=== PATIENT | male | born 1980 | race African-American/Black ===

== ENCOUNTER 2021-03-30 16:08 | Inpatient (IN) ==
[2021-03-30] MEDS ORDERED: CEFEPIME 2,000 MG/20 ML VIAL IV STA (16:18)
[2021-03-30] MEDS ORDERED: SODIUM CHLORIDE 0.9% 1000ML 1,000 ML IV ONE (16:18)
--- NOTE | 2021-03-30 16:43 | Emergency Department Note ---
Impression & Plan Sepsis, Renal transplant recipient, Left hemiplegia, Subarachnoid hemorrhage, ABEBA (acute kidney injury) ED Provider Note NAME: KARINA [id number] OSCAR AGE: 41 SEX: M : 1980 ARRIVES VIA: Ambulance INFORMANT: Patient ED PROVIDER(S): Davi Bruce DO CHIEF COMPLAINT:Sepsis HPI: Patient is a 41-year-old male who presents the ER for fever, hypotension and a UTI with a white count of 17,000. [facility] to embolectomy performed on the at [facility] for stroke. He was started on Keppra for possible seizures. He was having fevers and initially started on Augmentin and today following a syncopal episode they checked blood work and he had a white count of 17,000. He was found to be febrile and has a UTI. He was placed on Rocephin and transferred over to the ER. He does have a kidney transplant which was performed in 2018. He admits to a mild headache but no change in vision. No chest pain or shortness of breath. He had some belly pain prior to having bowel movement which is now resolved. He has no tenderness over the kidney. Denies any cough or runny nose. No loss of taste or smell. No other exacerbating or remitting factors. He denies any new numbness or weakness in the arms or legs but admits to improving strength in the left lower extremity. When he passed out the guard was with him and he did not hit his head. ROS: See above HPI for pertinent positives & negatives. A total of 10 systems reviewed and were otherwise negative. PAST MEDICAL HISTORY:See Below PAST SURGICAL HISTORY:See Below FAMILY HISTORY:See Below SOCIAL HISTORY:See Below HOME MEDICATIONS:See Below ALLERGIES:See Below VITALS:See Below PHYSICAL EXAMINATION: GENERAL: Sitting up in bed, alert, well appearing, well nourished, no distress, non-toxic EYE EXAM: normal conjunctiva. OROPHARYNX: no exudate, no erythema, lips, buccal mucosa, and tongue normal and mucous membranes are moist NECK: supple, no nuchal rigidity, no adenopathy, non-tender LUNGS: Clear to auscultation. Normal chest wall mechanics HEART: no murmurs, S1 normal and S2 normal ABDOMEN: abdomen soft, non-tender, normo-active bowel sounds, no masses, no rebound or guarding. Incision over abdomen without tenderness over the kidney. UPPER EXTREMITIES: upper extremities are grossly normal. LOWER EXTREMITIES: No pitting edema. NEURO EXAM: Normal sensorium, cranial nerves II-XII grossly intact, normal speech, little to no movement of the left upper extremity which is old. He is able to flex at the knee and move his toes on the left lower which is significantly improved per patient. No weakness of the right upper or right lower extremity. MEDICAL DECISION MAKING: Patient is a 41-year-old male with a recent stroke and neuro intervention at [facility] within the week who presents the ER for sepsis as he was found at [facility] to be hypotensive, tachycardic, febrile with a UTI and white count of 17,000. He had a syncopal event while having a bowel movement on the toilet and did not fall. There is no trauma. This was witnessed by the guard who was present at bedside. IV was established blood work was obtained here. Labs show leukocytosis of 13,000. No significant anemia. INR at 1.2. BMP with mild hyponatremia at 1.3. Creatinine at 3.1 up from a baseline of 2.4 with his known renal transplant performed in 2018. Lactate was normal. LFTs bilirubin was unremarkable. Troponin was negative. Pro-Gabe elevated at 3.8. UA does have leuks and whites and has already been treated with IV antibiotics. Covid was negative. CT showed a small subarachnoid bleed. This is discussed with interventional neurosurgical team at [facility] Dr. Vasquez as well as Dr. Garcia. I sent the images to Dr. Villagran who reviewed them. He notes these nearly never need neurosurgical intervention. Both physicians recommended holding the Plavix and repeating a CT in 24 hours. If he deteriorates at any point or anything changes to repeat the CT emergently and send him to [place]. They currently have no beds at this time. To the 48-hour wait. They believe this can be managed here. Also discussed with our neurologist Dr. Abreu. He recommended stopping the mycophenolate. He recommended continuing the tacrolimus. Recommended a level in the morning prior to the dose. If on steroids to continue. He does not appear to take steroids per the report from [facility]. Was given IV cefepime here. He remained stable. He was updated bedside and admitted for further work-up to Dr. Shaheed Doran. Triage Nursing notes reviewed. Limited review of prior medical records performed Vital Signs: reviewed and remarkable for no significant abnormalities Differential diagnosis: Differential diagnosis includes etiologies such as sepsis, UTI, pneumonia, metabolic, electrolyte abnormalities, cardiac sources, intracerebral event, toxicologic, neurological, as well as others were entertained. ER treatment provided: See below Diagnostics interpreted by me: ECG: Sinus rhythm rate of 79 Normal axis T wave version in lead III QTC 438 Cardiac Monitoring: An order was placed for continuous cardiac monitoring. The monitor shows a rate of 80 with sinus rhythm. Laboratory studies: As stated above and show below. Imaging studies: CT of the head shows a small subarachnoid bleed Consultation(s): [facility] discussing with [facility]surgery and nephrology prior to admission. Discussed with Dr. Vasquez from interventional neurology and Dr. Garcia from neurology. Procedures: none Critical Care: I have personally spent 32 minutes of critical care time in the direct management of this patient. This includes bedside care, interpretation of diagnostic studies, and testing, discussion with consultants, patient, and family members, and other required patient management activities. This 32 minutes is in excess of all separately billable procedures. Past Med/Surg History Social History Smoking Status: Never smoker Feels Safe at Home: Yes Home Meds Home Medications Medication Instructions Recorded Confirmed acetaminophen 325 mg tablet 650 mg PO Q4H PRN 03/30/21 03/30/21 (Tylenol) aspirin 81 mg tablet,delayed 81 mg PO DAILY 03/30/21 03/30/21 release clopidogrel 75 mg tablet 75 mg PO DAILY 03/30/21 03/30/21 docusate sodium 100 mg capsule 100 mg PO BID 03/30/21 03/30/21 fenofibrate nanocrystallized 48 mg 48 mg PO DAILY 03/30/21 03/30/21 tablet folic acid 1 mg tablet 2 mg PO DAILY 03/30/21 03/30/21 heparin (porcine) 5,000 unit/mL 5,000 unit SUBCUT Q12H 03/30/21 03/30/21 injection solution levetiracetam 250 mg tablet 250 mg PO Q12H 03/30/21 03/30/21 (Keppra) magnesium hydroxide 400 mg/5 mL 30 ml PO DAILY PRN 03/30/21 03/30/21 oral suspension (Milk of Magnesia) mycophenolate sodium 180 mg 720 mg PO BID 03/30/21 03/30/21 tablet,delayed release polyethylene glycol 3350 17 17 g PO .DAILY @ LUNCH PRN 03/30/21 03/30/21 gram/dose oral powder (Miralax) rosuvastatin 10 mg tablet 20 mg PO HS 03/30/21 03/30/21 sennosides 8.6 mg tablet (senna) 8.6 mg PO DAILY 03/30/21 03/30/21 tacrolimus 1 mg capsule, 2 mg PO Q12H 03/30/21 03/30/21 immediate-release Results & Data (ED) Vital Signs Vital Signs - 24 hr 03/30/21 16:44 03/30/21 17:00 Temperature 37.8 C H Temperature Source Oral Pulse Rate 101 H Pulse Rate [Right Finger] 108 H Pulse Rhythm Regular Pulse Rhythm [Right Finger] Regular Pulse Strength Normal Pulse Strength [Right Finger] Normal Respiratory Rate 22 18 Respiratory Effort / Characteristics Non-Labored Non-Labored Respiratory Depth Normal Normal Respiratory Pattern Regular Regular Blood Pressure 115/79 Blood Pressure [Right Arm] 104/72 Blood Pressure Mean 91 Blood Pressure Mean [Right Arm] 82 Blood Pressure Position Lying Blood Pressure Position [Right Arm] Lying Pulse Oximetry 96 97 Oxygen Delivery Method Room Air Room Air Sepsis Recent Fever Within 48 Hours Yes Sepsis New/Unexplained Change in Mental Status No Sepsis Action Taken by Nursing MD Previously Notified Laboratory Data Result diagrams: 03/30/21 17:30 03/30/21 17:30 Lab Results 03/30/21 03/30/21 03/30/21 Range/Units 16:55 16:55 17:30 WBC 13.44 H (4.8-10.8) K/uL RBC 4.64 L (4.7-6.1) M/uL Hgb 14.5 (14.0-18.0) g/dL Hct 41.7 L (42-52) % MCV 89.9 (80-100) fL MCH 31.3 (25-34) pg MCHC 34.8 (32-36) g/dL RDW Std Deviation 41.0 (36.4-46.3) fL RDW Coeff of Robert 12.4 (11.5-14.5) % Plt Count 255 (130-400) K/uL MPV 8.6 (7.4-10.4) fL Immature Gran % (Auto) 0.6 % Neut % (Auto) 88.1 % Lymph % (Auto) 6.9 % [place] % (Auto) 4.2 % Eos % (Auto) 0.1 % Baso % (Auto) 0.1 % Neut # (Auto) 11.84 H (1.4-6.5) K/uL Lymph # (Auto) 0.93 L (1.2-3.4) K/uL [place] # (Auto) 0.56 (0.11-0.59) K/uL Eos # (Auto) 0.01 (0-0.5) K/uL Baso # (Auto) 0.02 (0-0.2) K/uL Immature Gran # (Auto) 0.08 H (0.00-0.02) K/uL PT (9.0-12.0) Seconds INR (0.9-1.1) APTT (21.0-31.0) Seconds PTT Ratio Sodium (136-145) mmol/L Potassium (3.5-5.1) mmol/L Chloride (98-107) mmol/L Carbon Dioxide (21-32) mmol/L Anion Gap (3-11) BUN (7-18) mg/dl Creatinine (0.6-1.4) mg/dl Est Cr Clr Drug Dosing ml/min Est GFR ( Amer) ml/min Est GFR (Non-Af Amer) ml/min BUN/Creatinine Ratio (10-20) Glucose (70-99) mg/dl Lactate (0.4-2.0) mmol/L Calcium (8.5-10.1) mg/dl Magnesium (1.8-2.4) mg/dl Total Bilirubin (0.2-1) mg/dl AST (15-37) U/L ALT (12-78) U/L Alkaline Phosphatase (45-117) U/L Troponin I (0-0.045) ng/ml Total Protein (6.4-8.2) gm/dl Albumin (3.4-5.0) gm/dl Globulin (2.5-4.0) gm/dl Albumin/Globulin Ratio (0.9-2) Procalcitonin (0-0.5) ng/ml Urine Color Urine Appearance (Clear) Urine pH (4.5-7.5) Ur Specific [place] (1.000-1.030) Urine Protein (Negative) Urine Glucose (UA) (Negative) Urine Ketones (Negative) Urine Blood (Negative) Urine Nitrite (Negative) Urine Bilirubin (Negative) Urine Urobilinogen (Negative) Ur Leukocyte Esterase (Negative) Urine WBC (Auto) (0-5) /hpf Urine RBC (Auto) (0-4) /hpf U Hyaline Cast (Auto) (0-5) /lpf U Epithel Cells (Auto) (0-5) /lpf Urine Bacteria (Auto) (Negative) Granular Casts (0) /lpf Urine Yeast COVID-19 Eval Order Covid19 at [facility] SARS-CoV-2 (PCR) NEGATIVE (Negative) 03/30/21 03/30/21 03/30/21 Range/Units 17:30 17:30 17:30 WBC (4.8-10.8) K/uL RBC (4.7-6.1) M/uL Hgb (14.0-18.0) g/dL Hct (42-52) % MCV (80-100) fL MCH (25-34) pg MCHC (32-36) g/dL RDW Std Deviation (36.4-46.3) fL RDW Coeff of Robert (11.5-14.5) % Plt Count (130-400) K/uL MPV (7.4-10.4) fL Immature Gran % (Auto) % Neut % (Auto) % Lymph % (Auto) % [place] % (Auto) % Eos % (Auto) % Baso % (Auto) % Neut # (Auto) (1.4-6.5) K/uL Lymph # (Auto) (1.2-3.4) K/uL [place] # (Auto) (0.11-0.59) K/uL Eos # (Auto) (0-0.5) K/uL Baso # (Auto) (0-0.2) K/uL Immature Gran # (Auto) (0.00-0.02) K/uL PT 12.3 H (9.0-12.0) Seconds INR 1.2 H (0.9-1.1) APTT 32.3 H (21.0-31.0) Seconds PTT Ratio 1.2 Sodium 131 L (136-145) mmol/L Potassium 3.8 (3.5-5.1) mmol/L Chloride 99 (98-107) mmol/L Carbon Dioxide 24 (21-32) mmol/L Anion Gap 8.0 (3-11) BUN 42 H (7-18) mg/dl Creatinine 3.12 H (0.6-1.4) mg/dl Est Cr Clr Drug Dosing 35.3 ml/min Est GFR ( Amer) 27.1 ml/min Est GFR (Non-Af Amer) 23.4 ml/min BUN/Creatinine Ratio 13.5 (10-20) Glucose 129 H (70-99) mg/dl Lactate 1.0 (0.4-2.0) mmol/L Calcium 9.2 (8.5-10.1) mg/dl Magnesium 2.0 (1.8-2.4) mg/dl Total Bilirubin 0.7 (0.2-1) mg/dl AST 35 (15-37) U/L ALT 61 (12-78) U/L Alkaline Phosphatase 77 (45-117) U/L Troponin I < 0.015 (0-0.045) ng/ml Total Protein 7.7 (6.4-8.2) gm/dl Albumin 2.9 L (3.4-5.0) gm/dl Globulin 4.8 H (2.5-4.0) gm/dl Albumin/Globulin Ratio 0.6 L (0.9-2) Procalcitonin (0-0.5) ng/ml Urine Color Urine Appearance (Clear) Urine pH (4.5-7.5) Ur Specific [place] (1.000-1.030) Urine Protein (Negative) Urine Glucose (UA) (Negative) Urine Ketones (Negative) Urine Blood (Negative) Urine Nitrite (Negative) Urine Bilirubin (Negative) Urine Urobilinogen (Negative) Ur Leukocyte Esterase (Negative) Urine WBC (Auto) (0-5) /hpf Urine RBC (Auto) (0-4) /hpf U Hyaline Cast (Auto) (0-5) /lpf U Epithel Cells (Auto) (0-5) /lpf Urine Bacteria (Auto) (Negative) Granular Casts (0) /lpf Urine Yeast COVID-19 Eval Order SARS-CoV-2 (PCR) (Negative) 03/30/21 03/30/21 Range/Units 17:30 17:30 WBC (4.8-10.8) K/uL RBC (4.7-6.1) M/uL Hgb (14.0-18.0) g/dL Hct (42-52) % MCV (80-100) fL MCH (25-34) pg MCHC (32-36) g/dL RDW Std Deviation (36.4-46.3) fL RDW Coeff of Robert (11.5-14.5) % Plt Count (130-400) K/uL MPV (7.4-10.4) fL Immature Gran % (Auto) % Neut % (Auto) % Lymph % (Auto) % [place] % (Auto) % Eos % (Auto) % Baso % (Auto) % Neut # (Auto) (1.4-6.5) K/uL Lymph # (Auto) (1.2-3.4) K/uL [place] # (Auto) (0.11-0.59) K/uL Eos # (Auto) (0-0.5) K/uL Baso # (Auto) (0-0.2) K/uL Immature Gran # (Auto) (0.00-0.02) K/uL PT (9.0-12.0) Seconds INR (0.9-1.1) APTT (21.0-31.0) Seconds PTT Ratio Sodium (136-145) mmol/L Potassium (3.5-5.1) mmol/L Chloride (98-107) mmol/L Carbon Dioxide (21-32) mmol/L Anion Gap (3-11) BUN (7-18) mg/dl Creatinine (0.6-1.4) mg/dl Est Cr Clr Drug Dosing ml/min Est GFR ( Amer) ml/min Est GFR (Non-Af Amer) ml/min BUN/Creatinine Ratio (10-20) Glucose (70-99) mg/dl Lactate (0.4-2.0) mmol/L Calcium (8.5-10.1) mg/dl Magnesium (1.8-2.4) mg/dl Total Bilirubin (0.2-1) mg/dl AST (15-37) U/L ALT (12-78) U/L Alkaline Phosphatase (45-117) U/L Troponin I (0-0.045) ng/ml Total Protein (6.4-8.2) gm/dl Albumin (3.4-5.0) gm/dl Globulin (2.5-4.0) gm/dl Albumin/Globulin Ratio (0.9-2) Procalcitonin 3.80 H (0-0.5) ng/ml Urine Color Yellow Urine Appearance Clear (Clear) Urine pH 5.0 (4.5-7.5) Ur Specific [place] 1.013 (1.000-1.030) Urine Protein 1+ H (Negative) Urine Glucose (UA) Negative (Negative) Urine Ketones Negative (Negative) Urine Blood Trace H (Negative) Urine Nitrite Negative (Negative) Urine Bilirubin Negative (Negative) Urine Urobilinogen Negative (Negative) Ur Leukocyte Esterase Trace H (Negative) Urine WBC (Auto) 10-30 H (0-5) /hpf Urine RBC (Auto) 0-4 (0-4) /hpf U Hyaline Cast (Auto) 1-5 (0-5) /lpf U Epithel Cells (Auto) 5-10 H (0-5) /lpf Urine Bacteria (Auto) Negative (Negative) Granular Casts 1-5 H (0) /lpf Urine Yeast Not Reportable COVID-19 Eval Order SARS-CoV-2 (PCR) (Negative) Administered Medications Discontinued Medications Sodium Chloride (Nss 1000ml) 1,000 mls @ 999 mls/hr IV .[id number] ONE Stop: 03/30/21 17:18 Last Infusion: 03/30/21 18:43 Dose: 0 mls/hr Documented by: [id number] Admin: 03/30/21 17:30 Dose: 999 mls/hr Documented by: [id number] Cefepime HCl (Maxipime) 2,000 mg in 20 mls @ 5 mls/min IV NOW STA; Protocol Stop: 03/30/21 16:21 Last Admin: 03/30/21 17:30 Dose: 5 mls/min Documented by: [id number] Imaging Data Radiologist's Impression: Chest X-Ray 03/30/21 16:18 SINGLE VIEW CHEST CLINICAL HISTORY: Sepsis. FINDINGS: An AP, portable, semierect chest radiograph is compared to study dated 03/22/2021. The examination is degraded by portable technique and patient rotation. The heart is top normal for projection. The mediastinal contour is within normal limits. Mild atelectasis is seen at the lung bases. The lungs and pleural spaces are otherwise clear. No pneumothorax is seen. The bony thorax is grossly intact. IMPRESSION: No acute cardiopulmonary abnormality. ACT 112: Negative or not required by law. Electronically signed by: Romero Barnes M.D. 03/30/2021 5:[address] 03/30/21 16:[address] DOSE: 614.27 mGy.cm HISTORY: syncope TECHNIQUE: Multiaxial CT images of the head were performed without the use of intravenous contrast. Automated exposure control was utilized for this study. A dose lowering technique was utilized adhering to the principles of ALARA. Comparison: None. Findings: The paranasal sinuses and mastoid air cells are clear. The calvarium and skull base are intact. Focal hypodensity within the right basal ganglia suggestive of a subacute infarct. There is also curvilinear hyperdensity within the right temporoparietal junction best seen on images 18 and 19 suggestive of trace subarachnoid hemorrhage. This could represent hemorrhagic transformation of the suspected right-sided infarct. There is also small focal area of hypodensity within the right parietal lobe on images 17 through 19. This also likely represents an area of infarct. Impression: 1. Small focal hypodense areas within the right external capsule and right parietal lobe likely representing subacute infarcts. 2. There are small focal serpiginous areas of hyperdensity along the sulci at these locations suggestive of subarachnoid hemorrhage. This could represent hemorrhagic transformation of the suspected infarct. 6 to [address] follow-up recommended to ensure stability of the trace hemorrhage. ACT 112: Negative or not required by law. Electronically signed by: Jordon Ybarra M.D. 03/30/2021 6:26 PM Discharge Plan Visit Data Chief Complaint: Syncope ED Provider: Davi Bruce Discharge Problem: Sepsis, Renal transplant recipient, Left hemiplegia, Subarachnoid hemorrhage, ABEBA (acute kidney injury) Forms Stand Alone Forms: [employer] Prescriptions Prescriptions: No Action aspirin [Aspir-Low] 81 mg Tablet,Delayed Release (Dr/Ec) 81 mg PO DAILY RF: 0 tacrolimus 1 mg Capsule 2 mg PO Q12H RF: 0 folic acid 1 mg Tablet 2 mg PO DAILY RF: 0 heparin (porcine) 5,000 unit/mL Solution 5,000 unit SUBCUT Q12H RF: 0 mycophenolate sodium 180 mg Tablet,Delayed Release (Dr/Ec) 720 mg PO BID RF: 0 clopidogrel 75 mg Tablet 75 mg PO DAILY RF: 0 sennosides [senna] 8.6 mg Tablet 8.6 mg PO DAILY RF: 0 fenofibrate nanocrystallized 48 mg Tablet 48 mg PO DAILY RF: 0 rosuvastatin 10 mg Tablet 20 mg PO HS RF: 0 docusate sodium 100 mg Capsule 100 mg PO BID RF: 0 magnesium hydroxide [Milk of Magnesia] 400 mg/5 mL Suspension 30 ml PO DAILY PRN (Reason: Constipation) RF: 0 polyethylene glycol 3350 [Miralax] 17 gram/dose Powder 17 g PO .DAILY @ LUNCH PRN (Reason: Constipation) RF: 0 acetaminophen [Tylenol] 325 mg Tablet 650 mg PO Q4H PRN (Reason: Pain) RF: 0 levetiracetam [Keppra] 250 mg Tablet 250 mg PO Q12H RF: 0 Referrals Referrals: [facility] [Non-Staff] -
--- NOTE | 2021-03-30 17:04 | XRay Report ---
SINGLE VIEW CHEST CLINICAL HISTORY: Sepsis. FINDINGS: An AP, portable, semierect chest radiograph is compared to study dated 03/22/2021. The exam ination is degraded by portable technique and patient rotation. The heart is top normal for project ion. The mediastinal contour is within normal limits. Mild atelectasis is seen at the lung bases. The lungs and pleural spaces are otherwise clear. No pneumothorax is seen. The bony thorax is grossly in tact. IMPRESSION: No acute cardiopulmonary abnormality. ACT 112: Negative or not required by law. Electronically signed by: Romero Barnes M.D. 03/30/2021 5:03 PM
[2021-03-30 17:41] LABS: Basophils # (auto) 0.02 K/uL (0-0.2); Basophils % (auto) 0.1 %; Eosinophils # (auto) 0.01 K/uL (0-0.5); Eosinophils % (auto) 0.1 %; Hematocrit (blood only) 41.7 % (42-52); Hemoglobin 14.5 g/dL (14.0-18.0); Immature Granulocytes # (auto) 0.08 K/uL (0.00-0.02); Immature Granulocytes % (auto) 0.6 %; Lymphocytes # (auto) 0.93 K/uL (1.2-3.4); Lymphocytes % (auto) 6.9 %; Mean Corpuscular Hemoglobin 31.3 pg (25-34); Mean Corpuscular Hgb Conc 34.8 g/dL (32-36); Mean Corpuscular Volume 89.9 fL (80-100); Mean Platelet Volume 8.6 fL (7.4-10.4); Monocytes # (auto) 0.56 K/uL (0.11-0.59); Monocytes % (auto) 4.2 %; Neutrophils # (auto) 11.84 K/uL (1.4-6.5); Neutrophils % (auto) 88.1 %; Platelet Count 255 K/uL (130-400); RDW Coefficient of Variation 12.4 % (11.5-14.5); Red Blood Count 4.64 M/uL (4.7-6.1); White Blood Count 13.44 K/uL (4.8-10.8)
[2021-03-30 17:47] LABS: Appearance Urine Clear (Clear); Bacteria Urine Automated Negative (Negative); Bilirubin Urine Negative (Negative); Blood Urine Trace (Negative); Color Urine Yellow; Glucose Urine UA Negative (Negative); Ketones Urine Negative (Negative); Leukocyte Esterase Urine Trace (Negative); Nitrite Urine Negative (Negative); Protein Urine 1+ (Negative); Specific Gravity Urine 1.013 (1.000-1.030); Urobilinogen Urine Negative (Negative)
[2021-03-30 17:55] LABS: INR 1.2 (0.9-1.1); Partial Thromboplastin Ratio 1.2; Partial Thromboplastin Time 32.3 Seconds (21.0-31.0); Prothrombin Time 12.3 Seconds (9.0-12.0)
[2021-03-30 18:03] LABS: RBC Urine Automated 0-4 /hpf (0-4)
[2021-03-30 18:05] LABS: Alanine Aminotransferase 61 U/L (12-78); Albumin Level 2.9 gm/dl (3.4-5.0); Aspartate Aminotransferase 35 U/L (15-37); BUN Creatinine Ratio 13.5 (10-20); Blood Urea Nitrogen 42 mg/dl (7-18); Calcium 9.2 mg/dl (8.5-10.1); Carbon Dioxide 24 mmol/L (21-32); Chloride 99 mmol/L (98-107); Creatinine Clr Calc Pharmacy 35.3 ml/min; Est GFR (African American) 27.1 ml/min; Est GFR (Non-African American) 23.4 ml/min; Glucose 129 mg/dl (70-99); Potassium 3.8 mmol/L (3.5-5.1); Sodium 131 mmol/L (136-145)
[2021-03-30 18:10] LABS: Albumin Globulin Ratio 0.6 (0.9-2); Alkaline Phosphatase 77 U/L (45-117); Bilirubin,Total 0.7 mg/dl (0.2-1); Globulin 4.8 gm/dl (2.5-4.0); Total Protein 7.7 gm/dl (6.4-8.2); Troponin I < 0.015 ng/ml (0-0.045)
--- NOTE | 2021-03-30 18:27 | CT Scan Report ---
HEAD CT NONCONTRAST CT DOSE: 614.27 mGy.cm HISTORY: syncope TECHNIQUE: Multiaxial CT images of the head were performed without the use of intravenous contrast. A utomated exposure control was utilized for this study. A dose lowering technique was utilized adheri ng to the principles of ALARA. Comparison: None. Findings: The paranasal sinuses and mastoid air cells are clear. The calvarium and skull base are int act. Focal hypodensity within the right basal ganglia suggestive of a subacute infarct. There is also curvilinear hyperdensity within the right temporoparietal junction best seen on images 18 and 19 sug gestive of trace subarachnoid hemorrhage. This could represent hemorrhagic transformation of the susp ected right-sided infarct. There is also small focal area of hypodensity within the right parietal lo be on images 17 through 19. This also likely represents an area of infarct. Impression: 1. Small focal hypodense areas within the right external capsule and right parietal lobe likely repre senting subacute infarcts. 2. There are small focal serpiginous areas of hyperdensity along the sulci at these locations suggest genna of subarachnoid hemorrhage. This could represent hemorrhagic transformation of the suspected infa rct. 6 to [address] follow-up recommended to ensure stability of the trace hemorrhage. ACT 112: Negative or not required by law. Electronically signed by: Jordon Ybarra M.D. 03/30/2021 6:26 PM
[2021-03-30] MEDS ORDERED: ACETAMINOPHEN 325 MG TAB PO STA (19:35)
[2021-03-30] MEDS ORDERED: PATIENT'S ALLERGY INFO NEEDS ENTERED SCH (19:45)
[2021-03-30] MEDS ORDERED: ACETAMINOPHEN 325 MG TAB ONE (20:00)
--- NOTE | 2021-03-30 20:28 | History & Physical Report ---
Date of Service March 30, 2021 Assessment & Plan (1) Severe sepsis: Plan: SIRS plus ARF on CKD Secondary to complicated UTI Gram-negative rods on Gram stain on outpatient urine CS Failed outpatient treatment Immunocompromised patient, hx renal transplant ([facility], 2018) on CellCept, Tacrolimus Rule out obstructive uropathy given back pain complaints Recurrent syncope Rule out orthostasis given borderline BP Rule out cardiac dysfunction Keppra initiated at rehab facility for possible seizures. EEG contemplated outpatient. 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 Abreu who recommends obtaining tacrolimus level in a.m. prior to AM dose of patient's Tacrolimus. 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 (ER provider already in touch with Dr. Verdugo. Transfer not indicated for now as per conversation with ER provider. Recommend repeat CT head in a.m. Hold patient's Plavix but continue aspirin for now as per [facility] neurologist on-call.) DVT prophylaxis. SCDs RE ICH Full code Text document was generated using Riffyn voice recognition software. It may contain grammatical or spelling errors. Kindly contact undersigned for clarification of any documentation item in question. History of Present Illness Chief Complaint: Syncope Primary Care Provider: [facility] History obtained from patient and records. 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 Patient admitted at [facility] from 03/01- for left-sided weakness and sensory loss. Found to have right MCA infarct. Patient received TPA and underwent mechanical thrombectomy of right MCA M1 segment thrombus. Hemoglobin A1c noted to be 6 during confinement. Patient subsequently discharged to [facility] rehab facility on aspirin, Plavix, and Crestor for secondary stroke prevention. Last week, patient had a syncopal event at rehab facility. ER work-up negative. Syncope attributed to possible vasovagal event as per documentation Patient started on Keppra by rehab facility provider for possible seizures. EEG contemplated. Today, patient noted to be lethargic with fever, dysuria symptoms. Patient with back pain complaints as well. Outpatient urine CS with gram-negative rods on Gram stain. Patient initially started on Augmentin but later switched to Ceftriaxone at rehab facility. Patient had another syncopal event at rehab facility. Patient denies headache symptoms. No chest pain, no S OB. Given Cefepime at the ER for sepsis. Medical History as above Surgical History : Kidney transplant Family History : No stroke, no DM, no heart disease as per patient Personal/Social history : Non-smoker, no EtOH intake, prior work as a [employer] Allergies Allergy/AdvReac Type Severity Reaction Status Date / Time albuterol AdvReac Shakiness Verified 03/30/21 20:34 Home Medications Medication Instructions Recorded Confirmed Type acetaminophen 325 mg tablet 650 mg PO Q4H PRN 03/30/21 03/30/21 History (Tylenol) aspirin 81 mg tablet,delayed 81 mg PO DAILY 03/30/21 03/30/21 History release ceftriaxone 1 gram intravenous See Rx Instructions .ROUTE .COMPLEX 03/30/21 03/30/21 History piggyback clopidogrel 75 mg tablet 75 mg PO DAILY 03/30/21 03/30/21 History docusate sodium 100 mg capsule 100 mg PO BID 03/30/21 03/30/21 History fenofibrate nanocrystallized 48 mg 48 mg PO DAILY 03/30/21 03/30/21 History tablet folic acid 1 mg tablet 2 mg PO DAILY 03/30/21 03/30/21 History heparin (porcine) 5,000 unit/mL 5,000 unit SUBCUT Q12H 03/30/21 03/30/21 History injection solution levetiracetam 250 mg tablet 250 mg PO Q12H 03/30/21 03/30/21 History (Keppra) magnesium hydroxide 400 mg/5 mL 30 ml PO DAILY PRN 03/30/21 03/30/21 History oral suspension (Milk of Magnesia) mycophenolate sodium 180 mg 720 mg PO BID 03/30/21 03/30/21 History tablet,delayed release polyethylene glycol 3350 17 17 g PO .DAILY @ LUNCH PRN 03/30/21 03/30/21 History gram/dose oral powder (Miralax) rosuvastatin 10 mg tablet 20 mg PO HS 03/30/21 03/30/21 History sennosides 8.6 mg tablet (senna) 8.6 mg PO DAILY 03/30/21 03/30/21 History sodium chloride 0.9 % 100 ml IV .CONT X 10HR/DAILY 03/30/21 03/30/21 History tacrolimus 1 mg capsule, 2 mg PO Q12H 03/30/21 03/30/21 History immediate-release Past Med/Surg History Social History Smoking Status: Never smoker Hx Alcohol Use: No Hx Substance Use: No Preferred Language: Tamazight Knot Cutter Required: No Beliefs That Will Affect Care: None Current Living Situation: Other Current Living Situation Comment: inmate [facility] Other Information That Helps Us Care for You: No Feels Safe at Home: Yes Assistive Devices: None Review of Systems Review of Systems: As per HPI, all 10 systems reviewed, all other ROS negative Physical Exam Physical Exam: GENERAL: Comfortable, no respiratory distress SKIN: Normal color, warm HEENT: [place] palpebral conjunctivae, no ptosis, dry buccal mucosa NECK : Supple, no tenderness CHEST : CTA, no tenderness HEART : Tachycardic, no obvious murmurs ABDOMEN: Some distention, nontender EXTREMITIES : No LE swelling/tenderness, no other conspicuous deformities noted NEUROLOGIC : Coherent, no facial asymmetry; MMTS RUE/RLE 5/5, LUE/LLE 1/5; gait and stance not assessed Results & Data Results & Data ([facility]) Vital Signs (Past 12 Hours) Vital Signs Temp Pulse Pulse Resp BP BP Pulse Ox 03/30/21 17:00 108 H 18 104/72 97 03/30/21 16:44 37.8 C H 101 H 22 115/79 96 Laboratory Results Laboratory Results WBC 13.44 K/uL (4.8-10.8) H 03/30/21 17:30 RBC 4.64 M/uL (4.7-6.1) L 03/30/21 17:30 Hgb 14.5 g/dL (14.0-18.0) 03/30/21 17:30 Hct 41.7 % (42-52) L 03/30/21 17:30 MCV 89.9 fL (80-100) 03/30/21 17: MCH 31.3 pg (25-34) 03/30/21 17: MCHC 34.8 g/dL (32-36) 03/30/21 17:30 RDW Std Deviation 41.0 fL (36.4-46.3) 03/30/21 17: RDW Coeff of Robert 12.4 % (11.5-14.5) 03/30/21 17: Plt Count 255 K/uL (130-400) 03/30/21 17: MPV 8.6 fL (7.4-10.4) 03/30/21 17: Immature Gran % (Auto) 0.6 % 03/30/21 17:30 Neut % (Auto) 88.1 % 03/30/21 17:30 Lymph % (Auto) 6.9 % 03/30/21 17:30 [place] % (Auto) 4.2 % 03/30/21 17:30 Eos % (Auto) 0.1 % 03/30/21 17:30 Baso % (Auto) 0.1 % 03/30/21 17:30 Neut # (Auto) 11.84 K/uL (1.4-6.5) H 03/30/21 17:30 Lymph # (Auto) 0.93 K/uL (1.2-3.4) L 03/30/21 17:30 [place]oval # (Auto) 0.56 K/uL (0.11-0.59) 03/30/21 17:30 Eos # (Auto) 0.01 K/uL (0-0.5) 03/30/21 17:30 Baso # (Auto) 0.02 K/uL (0-0.2) 03/30/21 17: Immature Gran # (Auto) 0.08 K/uL (0.00-0.02) H 03/30/21 17:30 PT 12.3 Seconds (9.0-12.0) H 03/30/21 17:30 INR 1.2 (0.9-1.1) H 03/30/21 17:30 APTT 32.3 Seconds (21.0-31.0) H 03/30/21 17:30 PTT Ratio 1.2 03/30/21 17:30 Sodium 131 mmol/L (136-145) L 03/30/21 17:30 Potassium 3.8 mmol/L (3.5-5.1) 03/30/21 17:30 Chloride 99 mmol/L (98-107) 03/30/21 17:30 Carbon Dioxide 24 mmol/L (21-32) 03/30/21 17:30 Anion Gap 8.0 (3-11) 03/30/21 17:30 BUN 42 mg/dl (7-18) H 03/30/21 17:30 Creatinine 3.12 mg/dl (0.6-1.4) H 03/30/21 17:30 Est Cr Clr Drug Dosing 35.3 ml/min 03/30/21 17:30 Est GFR ( Amer) 27.1 ml/min 03/30/21 17:30 Est GFR (Non-Af Amer) 23.4 ml/min 03/30/21 17:30 BUN/Creatinine Ratio 13.5 (10-20) 03/30/21 17:30 Glucose 129 mg/dl (70-99) H 03/30/21 17:30 Lactate 1.0 mmol/L (0.4-2.0) 03/30/21 17:30 Calcium 9.2 mg/dl (8.5-10.1) 03/30/21 17:30 Magnesium 2.0 mg/dl (1.8-2.4) 03/30/21 17:30 Total Bilirubin 0.7 mg/dl (0.2-1) 03/30/21 17:30 AST 35 U/L (15-37) 03/30/21 17:30 ALT 61 U/L (12-78) 03/30/21 17:30 Alkaline Phosphatase 77 U/L (45-117) 03/30/21 17:30 Troponin I < 0.015 ng/ml (0-0.045) 03/30/21 17:30 Total Protein 7.7 gm/dl (6.4-8.2) 03/30/21 17:30 Albumin 2.9 gm/dl (3.4-5.0) L 03/30/21 17:30 Globulin 4.8 gm/dl (2.5-4.0) H 03/30/21 17:30 Albumin/Globulin Ratio 0.6 (0.9-2) L 03/30/21 17:30 Procalcitonin 3.80 ng/ml (0-0.5) H 03/30/21 17:30 Urine Color Yellow 03/30/21 17:30 Urine Appearance Clear (Clear) 03/30/21 17:30 Urine pH 5.0 (4.5-7.5) 03/30/21 17:30 Ur Specific [place] 1.013 (1.000-1.030) 03/30/21 17:30 Urine Protein 1+ (Negative) H 03/30/21 17:30 Urine Glucose (UA) Negative (Negative) 03/30/21 17:30 Urine Ketones Negative (Negative) 03/30/21 17:30 Urine Blood Trace (Negative) H 03/30/21 17:30 Urine Nitrite Negative (Negative) 03/30/21 17:30 Urine Bilirubin Negative (Negative) 03/30/21 17:30 Urine Urobilinogen Negative (Negative) 03/30/21 17:30 Ur Leukocyte Esterase Trace (Negative) H 03/30/21 17:30 Urine WBC (Auto) 10-30 /hpf (0-5) H 03/30/21 17:30 Urine RBC (Auto) 0-4 /hpf (0-4) 03/30/21 17:30 U Hyaline Cast (Auto) 1-5 /lpf (0-5) 03/30/21 17:30 U Epithel Cells (Auto) 5-10 /lpf (0-5) H 03/30/21 17:30 Urine Bacteria (Auto) Negative (Negative) 03/30/21 17:30 Granular Casts 1-5 /lpf (0) H 03/30/21 17:30 Urine Yeast Not Reportable 03/30/21 17:30 COVID-19 Eval Order Covid19 at [facility] [place] 03/30/21 16:55 SARS-CoV-2 (PCR) NEGATIVE (Negative) 03/30/21 16:55 Impressions Chest X-Ray 03/30/21 16:18 SINGLE VIEW CHEST CLINICAL HISTORY: Sepsis. FINDINGS: An AP, portable, semierect chest radiograph is compared to study dated 03/22/2021. The examination is degraded by portable technique and patient rotation. The heart is top normal for projection. The mediastinal contour is within normal limits. Mild atelectasis is seen at the lung bases. The lungs and pleural spaces are otherwise clear. No pneumothorax is seen. The bony thorax is grossly intact. IMPRESSION: No acute cardiopulmonary abnormality. ACT 112: Negative or not required by law. Electronically signed by: Romero Barnes M.D. 03/30/2021 5:[address] 03/30/21 16:[address] DOSE: 614.27 mGy.cm HISTORY: syncope TECHNIQUE: Multiaxial CT images of the head were performed without the use of intravenous contrast. Automated exposure control was utilized for this study. A dose lowering technique was utilized adhering to the principles of ALARA. Comparison: None. Findings: The paranasal sinuses and mastoid air cells are clear. The calvarium and skull base are intact. Focal hypodensity within the right basal ganglia sug gestive of a subacute infarct. There is also curvilinear hyperdensity within the right temporoparietal junction best seen on images 18 and 19 suggestive of trace subarachnoid hemorrhage. This could represent hemorrhagic transformation of the suspected right-sided infarct. There is also small focal area of hypodensity within the right parietal lobe on images 17 through 19. This also likely represents an area of infarct. Impression: 1. Small focal hypodense areas within the right external capsule and right parietal lobe likely representing subacute infarcts. 2. There are small focal serpiginous areas of hyperdensity along the sulci at these locations suggestive of subarachnoid hemorrhage. This could represent hemorrhagic transformation of the suspected infarct. 6 to [address] follo w-up recommended to ensure stability of the trace hemorrhage. ACT 112: Negative or not required by law. Electronically signed by: Jordon Ybarra M.D. 03/30/2021 6:26 PM Diagnostic Findings EKG as per my interpretation rate 105, sinus tachycardia, normal axis, T wave abnormalities inferior leads
[2021-03-30] MEDS ORDERED: POTASSIUM CHLORIDE 10 MEQ TABCR PO STA (20:36)
[2021-03-30] MEDS ORDERED: NSS + 20MEQ KCL 20 MEQ/1,000 ML BAG IV ONE (20:36)
[2021-03-31] MEDS ORDERED: POTASSIUM CHLORIDE 10 MEQ TABCR PO ONE (00:47)
[2021-03-31] MEDS: oxyCODONE HCL IR 5 MG TAB (IMMEDIATE RELEASE) PO PRN (00:51)
[2021-03-31] MEDS ORDERED: POLYETHYLENE (MIRALAX) 17 GM PACK PO PRN (01:21)
[2021-03-31] MEDS ORDERED: HYDROmorphone INJ 0.5 MG/0.5 ML SYR IV PRN (01:21)
[2021-03-31] MEDS ORDERED: ACETAMINOPHEN 325 MG TAB PO PRN (01:21)
[2021-03-31] MEDS ORDERED: PROMETHAZINE HCL 12.5 MG in SODIUM CHLORIDE 0.9% 50 ML IV PRN (01:21)
[2021-03-31] MEDS: TACROLIMUS 1 MG CAP PO SCH ×3 (01:54→21:04)
[2021-03-31] MEDS: ROSUVASTATIN CALCIUM 20 MG TAB PO SCH ×2 (01:55→21:04)
[2021-03-31] MEDS: DOCUSATE SODIUM 100 MG CAP PO SCH ×3 (01:55→21:04)
[2021-03-31] MEDS: levETIRAcetam 250 MG TAB PO SCH ×3 (01:55→21:04)
[2021-03-31 06:04] LABS: Basophils # (auto) 0.02 K/uL (0-0.2); Basophils % (auto) 0.2 %; Eosinophils # (auto) 0.04 K/uL (0-0.5); Eosinophils % (auto) 0.4 %; Hematocrit (blood only) 37.5 % (42-52); Hemoglobin 12.8 g/dL (14.0-18.0); Immature Granulocytes # (auto) 0.02 K/uL (0.00-0.02); Immature Granulocytes % (auto) 0.2 %; Lymphocytes # (auto) 0.53 K/uL (1.2-3.4); Lymphocytes % (auto) 5.3 %; Mean Corpuscular Hemoglobin 31.1 pg (25-34); Mean Corpuscular Hgb Conc 34.1 g/dL (32-36); Mean Corpuscular Volume 91.2 fL (80-100); Mean Platelet Volume 8.7 fL (7.4-10.4); Monocytes # (auto) 1.08 K/uL (0.11-0.59); Monocytes % (auto) 10.8 %; Neutrophils # (auto) 8.32 K/uL (1.4-6.5); Neutrophils % (auto) 83.1 %; Platelet Count 260 K/uL (130-400); RDW Coefficient of Variation 12.4 % (11.5-14.5); RDW Standard Deviation 41.9 fL (36.4-46.3); Red Blood Count 4.11 M/uL (4.7-6.1); White Blood Count 10.01 K/uL (4.8-10.8)
[2021-03-31 06:50] LABS: BUN Creatinine Ratio 13.4 (10-20); Calcium 9.2 mg/dl (8.5-10.1); Creatinine Clr Calc Pharmacy 38.7 ml/min; Est GFR (African American) 30.2 ml/min; Est GFR (Non-African American) 26.1 ml/min; Potassium 5.1 mmol/L (3.5-5.1)
--- NOTE | 2021-03-31 06:53 | CT Scan Report ---
CT OF THE ABDOMEN AND PELVIS WITHOUT CONTRAST CLINICAL HISTORY: Back pain. Left leg pain. COMPARISON STUDY: No previous studies for comparison. TECHNIQUE: Axial images of the abdomen and pelvis were obtained without IV contrast. Images were revi ewed in the axial, sagittal, and coronal planes. Automated exposure control was utilized for the aaron dy. A dose lowering technique was utilized adhering to the principles of ALARA. FINDINGS: Visualized portions of the lower chest demonstrate mild cardiomegaly. There are also mild a irspace opacities within the right lower lobe. No pneumatosis, free air or portal venous gas is prese nt. Evaluation of the abdomen and pelvis is suboptimal as unenhanced examination. There is appendix t endinosis. Unenhanced images of the spleen, adrenal glands and pancreas are unremarkable. There is no biliary or pancreatic ductal dilatation. Exam is compromised by motion artifact. Both benton kidneys are atrophic. Water attenuation bilateral renal lesions are suboptimally assessed on this unenhanced exam. Several these contain minimal layering calcifications. 6 mm calculus within lower pole of the left kidney is noted. There are no ureteral calculi. There is no hydronephrosis. There is no evidence for a bowel obstruction. The appendix is normal. There is minimal infiltration adjacent to the right lower quadrant allograft. No perigraft fluid collection is present. There is no hydronephrosis of th e allograft. Avascular necrosis of bilateral femoral heads is noted. There is diffuse sclerosis of vi sualized skeletal structures which is likely due to chronic renal disease. No acute lumbar spine frac ture is noted. Please note that the lumbar canal is suboptimally assessed by CT. IMPRESSION: 1. No bowel obstruction. Normal appendix. 2. Mild nonspecific infiltration adjacent to the right lower quadrant renal allograft. This could be correlated with urinalysis and graft function. 3. Left-sided nephrolithiasis. No ureteral calculi. No hydronephrosis. 4. Hepatic steatosis. 5. Mild right lower lobe airspace opacities which could reflect an infectious process or asymmetric p ulmonary edema. 6. Avascular necrosis of the bilateral femoral heads. 7. No lumbar spine fracture. Suboptimal evaluation of the central canal and neural foramen given CT t echnique. ACT 112: Negative or not required by law. Electronically signed by: Jaison Jolly M.D. 03/31/2021 6:52 AM
--- NOTE | 2021-03-31 07:20 | CT Scan Report ---
CT head/brain wo con CLINICAL HISTORY: Intracranial hemorrhage, infarct Technique: Contiguous axial CT images of the head were acquired from the base of the skull to the abbie chuy without intravenous contrast administration. Images were viewed in brain, subdural and [facility] . Automated dose lowering techniques and/or adjustment according to patient size were utilized for this exam. Comparison: Comparison is made to CT head 03/30/2021 Findings: There is redemonstration of hyperdensities consistent with subarachnoid hemorrhage along the sylvian sulcus and parietal lobe on the right. No new foci of hemorrhage are seen. Previously noted right-jaclyn ed white matter hypodensities are again seen. Imaged portions of the paranasal sinuses and mastoid air cells are clear. The orbits appear normal. There are no acute fractures of the calvaria or scalp swelling. Impression: Stable appearance of right external capsule and parietal lobe subacute infarcts with temporoparietal subarachnoid hemorrhage which may represent hemorrhagic transformation. No new areas of hemorrhage ar e seen. ACT 112: Negative or not required by law. Electronically signed by: Wei Villafana M.D. 03/31/2021 7:19 AM
[2021-03-31 07:24] LABS: Estimated Average Glucose 126 mg/dl
[2021-03-31] MEDS: FOLIC ACID 1 MG TAB PO SCH (08:11)
[2021-03-31] MEDS: ASPIRIN 81 MG ECTAB PO SCH (08:11)
[2021-03-31] MEDS: SENNA 8.6 MG TAB PO SCH (08:11)
[2021-03-31] MEDS: FENOFIBRATE NANOCRYSTALLIZED 48 MG TABLET PO SCH (08:11)
[2021-03-31] MEDS ORDERED: CONSULT PHARMACY SCH (09:00)
--- NOTE | 2021-03-31 10:44 | Electrocardiogram Report ---
Test Reason : Blood Pressure : / mmHG Vent. Rate : 105 BPM Atrial Rate : 105 BPM P-R Int : 166 ms QRS Dur : 088 ms QT Int : 328 ms P-R-T Axes : 028 053 013 degrees QTc Int : 433 ms Sinus tachycardia Otherwise normal ECG When compared with ECG of 22-MAR-2021 13:36, No significant change was found Confirmed by Joshua Castellano ([id number]) on 03/31/2021 10:44:22 AM Referred By: [facility] Confirmed By:Ross Castellano
--- NOTE | 2021-03-31 16:42 | Hospitalist Progress Note ---
Date of Service March 31, 2021 Assessment & Plan (1) Severe sepsis: Plan: SIRS plus ARF on CKD Secondary to complicated UTI Gram-negative rods on Gram stain on outpatient urine CS Failed outpatient treatment Immunocompromised patient, hx renal transplant ([facility], 2018) on CellCept, Tacrolimus Recurrent syncope Rule out orthostasis given borderline BP Rule out cardiac dysfunction Keppra initiated at rehab facility for possible seizures. EEG contemplated outpatient. ICH Possible hemorrhagic transformation recent ischemic CVA (R MCA) status post TPA/embolectomy at [facility] (02/2021) prediabetes, hemoglobin A1c of 6 last month at [facility] Overall reports he is doing okay. States he is feeling better. Hemodynamically doing fine. WBC today at 10. Urine and blood cultures were obtained in the ED. We will continue with cefepime. CT abdomen/pelvis without any acute findings. Nephrology consult Re: ARF on CKD, history kidney transplant. (ER provider already in touch with Dr. Abreu who recommends obtaining tacrolimus level in a.m. prior to AM dose of patient's Tacrolimus. Hold CellCept for now as per ER provider conversation with [employer] operator.) Check orthostatic vitals, TTE today with a EF of 65%., EEG for recurrent syncope work-up. Neurochecks [facility] Neurology consult for possible SAH on CT head. CT on admission: 1. Small focal hypodense areas within the right external capsule and right parie zaira lobe likely representing subacute infarcts. 2. There are small focal serpiginous areas of hyperdensity along the sulci at these locations suggestive of subarachnoid hemorrhage. This could represent hemorrhagic transformation of the suspected infarct. 6 to [address] follow-up recommended to ensure stability of the trace hemorrhage. Repeat CT head: Stable appearance of right external capsule and parietal lobe subacute infarcts with temporoparietal subarachnoid hemorrhage which may represent hemorrhagic transformation. No new areas of hemorrhage are seen. (ER provider already in touch with Dr. Verdugo. Transfer not indicated for now as per conversation with ER provider. Recommend repeat CT head in a.m. Hold patient's Plavix but continue aspirin for now as per [facility] neurologist on-call.) However if there is any change in mental status recommended repeat CT head and send him to [place]. We will consult neurology. DVT prophylaxis. SCDs RE ICH Full code Admission and Anticipated Discharge Date Admission Date: March 30, 2021 Subjective Patient is awake and alert. States he feels much better. Reports fever is improved. States dysuria persists. Denies any chest pain or shortness of breath. Denies any abdominal pain, nausea or vomiting. Rest of the review of system is negative. Review of Systems Review of Systems: All systems reviewed & are unremarkable except as noted in HPI & below Physical Exam Physical Exam: General: A&Ox3 HENT: NCAT, MMM, EOMI Eyes: PERRLA Neck: Supple, normal range of motion CVS: normal rate and rhythm Resp: b/l good breath sounds Abdomen: Soft, ND/NT, +BS Extremities: No c/c/e Neuro: facial droop and left sided weaknes noted Skin: warm and dry, no rashes/lesions/errythema MSK: normal ROM, no joint swelling/erythema Results & Data Results & Data ([facility]) Vital Signs (Past 12 Hours) Vital Signs Temp Pulse Pulse Resp BP Pulse Ox Pulse Ox 03/31/21 12:00 37.1 C 97 H 19 113/67 96 03/31/21 08:00 37.4 C 91 H 94 H 18 93/66 L 97 97
[2021-03-31] MEDS: CEFEPIME 2,000 MG in SYRINGE 0 ML IV SCH (17:29)
[2021-04-01] MEDS: oxyCODONE HCL IR 5 MG TAB (IMMEDIATE RELEASE) PO PRN ×2 (00:36→22:14)
[2021-04-01 05:01] LABS: Basophils # (auto) 0.02 K/uL (0-0.2); Basophils % (auto) 0.3 %; Eosinophils # (auto) 0.07 K/uL (0-0.5); Eosinophils % (auto) 1.2 %; Hematocrit (blood only) 35.3 % (42-52); Hemoglobin 11.9 g/dL (14.0-18.0); Immature Granulocytes # (auto) 0.01 K/uL (0.00-0.02); Immature Granulocytes % (auto) 0.2 %; Lymphocytes # (auto) 0.56 K/uL (1.2-3.4); Lymphocytes % (auto) 9.6 %; Mean Corpuscular Hemoglobin 30.9 pg (25-34); Mean Corpuscular Hgb Conc 33.7 g/dL (32-36); Mean Corpuscular Volume 91.7 fL (80-100); Mean Platelet Volume 8.7 fL (7.4-10.4); Monocytes # (auto) 0.82 K/uL (0.11-0.59); Neutrophils # (auto) 4.36 K/uL (1.4-6.5); Neutrophils % (auto) 74.7 %; Platelet Count 261 K/uL (130-400); RDW Coefficient of Variation 12.5 % (11.5-14.5); RDW Standard Deviation 42.5 fL (36.4-46.3); Red Blood Count 3.85 M/uL (4.7-6.1); White Blood Count 5.84 K/uL (4.8-10.8)
[2021-04-01 05:27] LABS: BUN Creatinine Ratio 12.7 (10-20); Calcium 8.8 mg/dl (8.5-10.1); Creatinine Clr Calc Pharmacy 41.9 ml/min; Est GFR (African American) 33.3 ml/min; Est GFR (Non-African American) 28.7 ml/min; Potassium 4.5 mmol/L (3.5-5.1)
[2021-04-01] MEDS: DOCUSATE SODIUM 100 MG CAP PO SCH ×2 (08:35→20:54)
[2021-04-01] MEDS: SENNA 8.6 MG TAB PO SCH (08:35)
[2021-04-01] MEDS: ASPIRIN 81 MG ECTAB PO SCH (08:35)
[2021-04-01] MEDS: FOLIC ACID 1 MG TAB PO SCH (08:35)
[2021-04-01] MEDS: FENOFIBRATE NANOCRYSTALLIZED 48 MG TABLET PO SCH (08:35)
[2021-04-01] MEDS: TACROLIMUS 1 MG CAP PO SCH ×2 (08:36→20:54)
[2021-04-01] MEDS: levETIRAcetam 250 MG TAB PO SCH ×2 (08:36→20:54)
--- NOTE | 2021-04-01 12:32 | Neurology Consultation ---
Date of Consultation April 01, 2021 Assessment & Plan (1) Severe sepsis: 1. treat to culture 2. primary team to follow (2) Left hemiplegia: 1. PT/OT for return to [facility] for further management (3) Subarachnoid hemorrhage: 1. agree with holding plavix 75 mg for now 2. continue aspirin 81 mg daily 3. optimize HTN, HLD however low blood pressure may be cause of syncope episode - risk benefit 4. defer restart of plavix to [facility] [place] neurology neurovascular intervention 5. will sign off for now will be available for questions as needed. 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 CT head findings appear stable. Agree with [facility] [place] [place] Neurology recommendations to hold PLavix. Continue ASA 81 mg daily and Keppra 250 mg BID for seizure prophylaxis. PLease call me with any additional questions or concerns. History of Present Illness Reason for Consultation: small subarachnoid bleed Requesting Physician: Michelle Butler MD Attending Physician: Michelle Butler MD History of Present Illness Crow is a 41 year old male who presents to [facility] ER 03/30/2021 with fever, hypotension and a UTI with a white count of 17,000.He was at [facility] rehab facility secondary to embolectomy performed on the 04/22/21 at [facility] for stroke. He was started on Keppra 250 mg twice daily for possible seizures.He was having fevers and initially started on Augmentin and today following a syncopal episode they checked blood work and he had a white count of 17,000. He was found to be febrile and has a UTI. He was placed on Rocephin and transferred over to the ER. He does have a kidney transplant which was performed in 2018. He admits to a mild headache but no change in vision.He had some belly pain prior to having bowel movement which is now resolved. He has no tenderness over the kidney. When he passed out the guard was with him and he did not hit his head. he is lying in bed with no current complaints, He is feel better than yesterday. He can only walk with assistance. denies CP, SOB, abdominal pain, headache Allergies Allergy/AdvReac Type Severity Reaction Status Date / Time albuterol AdvReac Shakiness Verified 03/30/21 20:34 Home Medications Medication Instructions Recorded Confirmed Type acetaminophen 325 mg tablet 650 mg PO Q4H PRN 03/30/21 03/30/21 History (Tylenol) aspirin 81 mg tablet,delayed 81 mg PO DAILY 03/30/21 03/30/21 History release ceftriaxone 1 gram intravenous See Rx Instructions .ROUTE .COMPLEX 03/30/21 03/30/21 History piggyback clopidogrel 75 mg tablet 75 mg PO DAILY 03/30/21 03/30/21 History docusate sodium 100 mg capsule 100 mg PO BID 03/30/21 03/30/21 History fenofibrate nanocrystallized 48 mg 48 mg PO DAILY 03/30/21 03/30/21 History tablet folic acid 1 mg tablet 2 mg PO DAILY 03/30/21 03/30/21 History heparin (porcine) 5,000 unit/mL 5,000 unit SUBCUT Q12H 03/30/21 03/30/21 History injection solution levetiracetam 250 mg tablet 250 mg PO Q12H 03/30/21 03/30/21 History (Keppra) magnesium hydroxide 400 mg/5 mL 30 ml PO DAILY PRN 03/30/21 03/30/21 History oral suspension (Milk of Magnesia) mycophenolate sodium 180 mg 720 mg PO BID 03/30/21 03/30/21 History tablet,delayed release polyethylene glycol 3350 17 17 g PO .DAILY @ LUNCH PRN 03/30/21 03/30/21 History gram/dose oral powder (Miralax) rosuvastatin 10 mg tablet 20 mg PO HS 03/30/21 03/30/21 History sennosides 8.6 mg tablet (senna) 8.6 mg PO DAILY 03/30/21 03/30/21 History sodium chloride 0.9 % 100 ml IV .CONT X 10HR/DAILY 03/30/21 03/30/21 History tacrolimus 1 mg capsule, 2 mg PO Q12H 03/30/21 03/30/21 History immediate-release Patient History Social History Smoking Status: Never smoker Hx Alcohol Use: No Hx Substance Use: No Preferred Language: Italian Bonderizer Required: No Beliefs That Will Affect Care: None Current Living Situation: Other Current Living Situation Comment: inmate [facility] Other Information That Helps Us Care for You: No Feels Safe at Home: Yes Assistive Devices: None Review of Systems Review of Systems: All systems reviewed & are unremarkable except as noted in HPI & below Physical Exam Physical Exam: Physical Exam: Constitutional: appearance nourished, healthy and normal Ears, Nose, Mouth and Throat: mucous membranes moist, no injection and skin normal, eyes normal Cardiovascular: normal S-1 and S-2 and regular rate and rhythm Respiratory: clear to auscultation (CTA) and no rales, rhonchi or wheeze Musculoskeletal: no peripheral edema and good distal pulses Skin: no stigmata of neurocutaneous disease noted and normal and intact Eyes: extraocular muscles intact (EOMI) and pupils equal, round and reactive to light (PERRL) NEUROLOGIC EXAMINATION: Mental status: Alert and interactive Oriented to person Speech fluent with no evidence of aphasia Cranial Nerves left nasolabial fold flattening Reflexes: Deep tendon reflexes were symmetrical and graded 2/5. Sensory: intact to light and cool touch Coordination: unable to lift left arm Gait/Stance: Posture lying in bed . Strength: hand tin can feeder biceps triceps right 5/5, left 0/5, hip flex plantar flex ext right 5/5 left 1/5 Results & Data ([facility]) Vital Signs (Past 12 Hours) Vital Signs Temp Pulse Pulse Resp BP Pulse Ox Pulse Ox 04/01/21 12:00 100 H 20 109/63 97 04/01/21 08:00 37.2 C 93 H 93 H 17 105/69 97 97 04/01/21 04:18 37.4 C 84 16 105/72 96 04/01/21 00:39 37.5 C 93 H 16 114/75 98 Laboratory Results Abnormal lab results 04/01/21 04/01/21 Range/Units 04:48 04:48 RBC 3.85 L (4.7-6.1) M/uL Hgb 11.9 L (14.0-18.0) g/dL Hct 35.3 L (42-52) % Lymph # (Auto) 0.56 L (1.2-3.4) K/uL [place] # (Auto) 0.82 H (0.11-0.59) K/uL Sodium 135 L (136-145) mmol/L BUN 34 H (7-18) mg/dl Creatinine 2.63 H (0.6-1.4) mg/dl Diagnostic Findings CT A/P No bowel obstruction. Normal appendix. Mild nonspecific infiltration adjacent to the right lower quadrant renal allograft. This could be correlated with urinalysis and graft function. Left-sided nephrolithiasis. No ureteral calculi. No hydronephrosis. Hepatic steatosis. Mild right lower lobe airspace opacities which could reflect an infectious process or asymmetric pulmonary edema. . Avascular necrosis of the bilateral femoral heads. No lumbar spine fra cture. Suboptimal evaluation of the central canal and neural foramen given CT technique. CT head-Stable appearance of right external capsule and parietal lobe subacute infarcts with temporoparietal subarachnoid hemorrhage which may represent hemorrhagic transformation. No new areas of hemorrhage are seen.
[2021-04-01] MEDS: CEFEPIME 2,000 MG in SYRINGE 0 ML IV SCH (16:39)
--- NOTE | 2021-04-01 16:39 | Hospitalist Progress Note ---
Date of Service April 01, 2021 Assessment & Plan (1) Severe sepsis: Plan: SIRS plus ARF on CKD Secondary to complicated UTI Gram-negative rods on Gram stain on outpatient urine CS Failed outpatient treatment Immunocompromised patient, hx renal transplant ([facility], 2018) on CellCept, Tacrolimus Recurrent syncope Rule out orthostasis given borderline BP Rule out cardiac dysfunction Keppra initiated at rehab facility for possible seizures. EEG contemplated outpatient. ICH Possible hemorrhagic transformation recent ischemic CVA (R MCA) status post [place]PA/[place]bolect[place] at [facility] [place]) prediabetes, hemoglobin A1c of 6 last month at [facility] [place] Overall feeling better. Is afebrile. Hemodynamically doing okay. Leukocytosis is resolved. Urine and blood cultures were obtained in the ED. We will continue with cefepime. CT abdomen/pelvis without any acute findings. Nephrology consult Re: ARF on CKD, history kidney transplant. Creatinine down to 2.63 from 3.12 on admission. Avoid any nephrotoxic agents. Currently awaiting nephrology input. (ER provider already in touch with Dr. Abreu who recommends obtaining tacrolimus level in a.m. prior to AM dose of patient's Tacrolimus. Hold CellCept for now as per ER provider conversation with child care lead teacher director of business operations.) Check orthostatic vitals, TTE today with a EF of 65%., EEG for recurrent syncope work-up. Neurochecks Appreciate neurology input. Continue holding Plavix. No new focal deficits. CT on admission: 1. Small focal hypodense areas within the right external capsule and right parietal lobe likely representing subacute infarcts. 2. There are small focal serpiginous areas of hyperdensity along the sulci at these locations suggestive of subarachnoid hemorrhage. This could represent hemorrhagic transformation of the suspected infarct. [address] follow-up recommended to ensure stability of the trace hemorrhage. Repeat CT head: Stable appearance of right external capsule and parietal lobe subacute infarcts with temporoparietal subarachnoid hemorrhage which may represent hemorrhagic transformation. No new areas of hemorrhage are seen. (ER provider already in touch with Dr. Verdugo. Transfer not indicated for now as per conversation with ER provider. Recommend repeat CT head in a.m. Hold patient's Plavix but continue aspirin for now as per [facility] neurologist on-call.) However if there is any change in mental status recommended repeat CT head and send him to [facility]. PT/OT has been consulted. DVT prophylaxis. SCDs RE ICH Full code Admission and Anticipated Discharge Date Admission Date: March 30, 2021 Subjective Patient is awake and alert. Overall doing okay. No new focal deficits. Reports he feels much better than he came in with. However, does report significant pain in the left upper extremity overnight. Denies any chest pain or shortness of breath. Has any abdominal pain or diarrhea. Dysuria is improved. Review of Systems Review of Systems: All systems reviewed & are unremarkable except as noted in HPI & below Physical Exam Physical Exam: General: A&Ox3 HENT: NCAT, MMM, EOMI Eyes: PERRLA Neck: Supple, normal range of motion CVS: normal rate and rhythm Resp: b/l good breath sounds Abdomen: Soft, ND/NT, +BS Extremities: No c/c/e Neuro: facial droop and left sided weaknes noted, absence of any new focal deficits Skin: warm and dry, no rashes/lesions/errythema MSK: normal ROM, no joint swelling/erythema Results & Data Results & Data ([facility]) Vital Signs (Past 12 Hours) Vital Signs Temp Pulse Pulse Resp BP Pulse Ox Pulse Ox 04/01/21 15:59 37 C 88 95 H 16 107/70 97 04/01/21 12:00 100 H 20 109/63 97 04/01/21 08:00 37.2 C 93 H 93 H 17 105/69 97 97
[2021-04-01] MEDS: ROSUVASTATIN CALCIUM 20 MG TAB PO SCH (20:54)
--- NOTE | 2021-04-01 23:37 | Consultation Report ---
NEPHROLOGY CONSULTATION NOTE DATE OF CONSULTATION: 04/01/2021. REASON FOR CONSULTATION: Renal transplant patient now with acute renal failure. HISTORY OF PRESENT ILLNESS: The patient is a 41-year-old male with history of severe hypertension, l eading to end-stage renal disease, previously on hemodialysis and then had a cadaveric renal transpla nt in 2018 at [facility]. Interestingly, his kidney transplant was against the blood areli up type. He presented to the hospital 2 days ago because of [facility]opal [facility]. Marion álvarez was admitted at [facility] from 03/01/2021-03/19/2021 for the left sided weakness and s ensory loss. He was found to have a right MCA infarct. During that hospitalization, he received TPA and underwent mechanical thrombectomy of the right MCA M1 segment thrombus. After that, he was disc harged to [facility] on aspirin, Plavix and Crestor for secondary stroke preve ntion. Since being admitted here all the workup has been negative, as of now syncope is attributed t o possible vasovagal event as per the documentation. As per the patient, who seems pretty knowledgeab le about his kidney transplant status, his baseline creatinine is around 1.5; however, we have a bloo d work from 03/22/2021 when his creatinine was 2.47. On admission 2 days ago, it was 3.12. Since the n, it has been trending down with better hydration and is down to 2.63 at this time. Normally he nolberto es Prograf and CellCept for kidney transplant, but currently CellCept is on hold. He has been attrib uted as having sepsis, but as of now, none of the cultures are positive. He is still on the antibioti cs, cefepime. He is also on empiric Keppra for seizure prevention. He is getting tacrolimus 2 mg ev catalino 12 hours, CellCept is on hold. At this point, he appears pretty stable with good hemodynamic stat us. He has been seen by Neurology who is not planning to do any special intervention at this time. He is making urine. CT abdomen and pelvis was also done at the time of admission. There is mention of left sided nephrolithiasis. There is no hydronephrosis of the allograft, incidental finding of av ascular necrosis of the femoral head was also noted. PAST MEDICAL AND SURGICAL HISTORY: Includes severe hypertension, ESRD on hemodialysis, followed by abbe gonzales transplant 2018 against the blood group type hypertension, chronic immunosuppression, chronic k idney disease, baseline creatinine as per the patient is 1.5, but most recent outpatient was 2.4, pos sible seizure disorder, prediabetes, kidney transplant. FAMILY HISTORY: Negative for renal disease or dialysis. PERSONAL AND SOCIAL HISTORY: Nonsmoker, no alcohol. 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 ALLERGIES: ALBUTEROL. MEDICATIONS: Home medication list was reviewed and is as per the reconciliation list for transplant, he takes Prograf 2 mg every 12-hour as well as CellCept 720 mg twice daily as well as multiple other medications. REVIEW OF SYSTEMS: Besides syncopal episode and weakness following a stroke, 12 systems reviewed and negative. PHYSICAL EXAMINATION: GENERAL: Young male who is not in any respiratory distress at this time. He is awake, aler t, oriented x3. HEENT: Mucous membranes are moist. NECK: Supple. No jugular venous distention. CHEST: Bilaterally clear to auscultation. HEART: S1 and S2, regular. ABDOMEN: Soft, nontender, allograft site is not tender. EXTREMITIES: Show no edema. VITAL SIGNS: Blood pressure is 111/76, pulse rate 85, temperature 37 degrees Celsius, 93% on room ai r. LABORATORY TEST: As per the patient, his baseline creatinine is 1.5, but his creatinine most recentl y on 03/22/2021 was 2.47, on admission was 3.12. Since then, it has been trending down and is now ge tting close to his baseline. CT abdomen and pelvis, head, chest x-ray was also reviewed and is alrea dy detailed in HPI. Urine test shows 1+ protein, trace blood. WBC count was elevated at the time of admission 13,000, but now it is 5.84, platelet count 261. ASSESSMENT AND PLAN: A 41-year-old male with endstage renal disease secondary to severe hypertension , status post kidney transplant 2018 with some degree of allograft dysfunction at baseline now admitt ed following a syncopal episode. Recent history of complicated stroke requiring hospital admission, followed by rehab stay noted. I have been consulted for acute renal failure as well as transplant brock miller. 1. Acute renal failure. It seems to be improving. Creatinine was 3.1 at time of admission, now it is trending down with increasing urine output. His vital signs are stable. I expect the kidney func tion to get better in the coming days. He is eating and drinking normally. So I do not believe he n eeds to be given more IV fluid. It is possible he may have had an infection for which he is getting empiric antibiotics. 2. Kidney transplant status. As per the patient baseline creatinine is 1.5, but I do not have any wa y of objectively verifying this. His most recent outpatient creatinine was 2.47 a few days prior to admission. At this time, I agree with holding the CellCept and continuing with the Prograf. Check P rograf trough level tomorrow. We should be able to restart the CellCept in the coming days. No furth er workup is needed. Job ID: [id number]
[2021-04-02] MEDS: FOLIC ACID 1 MG TAB PO SCH (09:18)
[2021-04-02] MEDS: FENOFIBRATE NANOCRYSTALLIZED 48 MG TABLET PO SCH (09:18)
[2021-04-02] MEDS: ASPIRIN 81 MG ECTAB PO SCH (09:19)
[2021-04-02] MEDS: SENNA 8.6 MG TAB PO SCH ×2 (09:19→14:37)
[2021-04-02] MEDS: levETIRAcetam 250 MG TAB PO SCH ×2 (09:19→20:48)
[2021-04-02] MEDS: TACROLIMUS 1 MG CAP PO SCH ×2 (09:19→20:48)
[2021-04-02] MEDS: DOCUSATE SODIUM 100 MG CAP PO SCH ×3 (09:19→20:47)
[2021-04-02] MEDS ORDERED: MYCOPHENOLATE MOFETIL 250 MG CAP PO SCH (10:45)
--- NOTE | 2021-04-02 11:17 | Nephrology Progress Note ---
Date of Service April 02, 2021 Assessment & Plan (1) Renal transplant recipient: Plan: Patient is status post renal transplant on Prograf and CellCept. Patient has been taking only Prograf. Prograf level is acceptable. Creatinine downtrending to 2.6. Baseline around 1.5. -We will resume CellCept 750 mg twice daily. -We will give saline at 80 mL/h. (2) Sepsis: Plan: Patient with suspected UTI. He is getting cefepime. He reports improvement. Renal dose antibiotics for current GFR. Admission and Anticipated Discharge Date Admission Date: March 30, 2021 Subjective Seen in follow-up for renal transplant. He feels better today. No shortness of breath. He is making urine. Review of Systems Review of Systems: All other systems were reviewed and negative except as n oted in HPI Physical Exam Physical Exam: General exam: Appears comfortable, no acute distress HEENT: Pupils are equal and reactive to light Neck: No JVD, neck is supple trachea is midline Respiratory system: Clear breath sounds bilaterally. Gastrointestinal: Abdomen is soft, non distended, non tender, bowel sounds are present CVS: Regular rate and rhythm. No murmurs, rubs or gallops Musculoskeletal: No joint or muscle tenderness Extremities: Non tender, no edema, peripheral pulses are present Neuro: Oriented, no tremors, no focal neurological deficits Skin: No rashes Results & Data ([facility]) Vital Signs (Past 12 Hours) Vital Signs Temp Pulse Pulse Resp BP Pulse Ox 04/02/21 07:46 81 04/02/21 06:35 36.6 C 83 16 112/76 95 04/02/21 04:34 36.5 C 80 18 124/81 97 Laboratory Results 04/01/21 04:48 (1) Sepsis Sepsis acute organ dysfunction status: unspecified Sepsis type: sepsis due to unspecified organism Qualified Code(s): A41.9 - Sepsis, unspecified organism
[2021-04-02] MEDS: SODIUM CHLORIDE 0.9% 1000ML 1,000 ML IV SCH (11:59)
[2021-04-02] MEDS: MYCOPHENOLATE MOFETIL 250 MG CAP PO SCH ×2 (12:31→20:47)
--- NOTE | 2021-04-02 12:39 | Electroencephalogram ---
EEG Procedure Note Date of Service April 02, 2021 Start / End Times Start Time: 12:42 End Time: 13:[address] Raad Meade History A 41 year old male with recent right MCA ischemic stroke s/p thrombectomy. EEG performed for evaluation of epileptiform activity. Home Medication List Medication Instructions Recorded Confirmed Type acetaminophen 325 mg tablet 650 mg PO Q4H PRN 03/30/21 03/30/21 History (Tylenol) aspirin 81 mg tablet,delayed 81 mg PO DAILY 03/30/21 03/30/21 History release ceftriaxone 1 gram intravenous See Rx Instructions .ROUTE .COMPLEX 03/30/21 03/30/21 History piggyback clopidogrel 75 mg tablet 75 mg PO DAILY 03/30/21 03/30/21 History docusate sodium 100 mg capsule 100 mg PO BID 03/30/21 03/30/21 History fenofibrate nanocrystallized 48 mg 48 mg PO DAILY 03/30/21 03/30/21 History tablet folic acid 1 mg tablet 2 mg PO DAILY 03/30/21 03/30/21 History heparin (porcine) 5,000 unit/mL 5,000 unit SUBCUT Q12H 03/30/21 03/30/21 History injection solution levetiracetam 250 mg tablet 250 mg PO Q12H 03/30/21 03/30/21 History (Keppra) magnesium hydroxide 400 mg/5 mL 30 ml PO DAILY PRN 03/30/21 03/30/21 History oral suspension (Milk of Magnesia) mycophenolate sodium 180 mg 720 mg PO BID 03/30/21 03/30/21 History tablet,delayed release polyethylene glycol 3350 17 17 g PO .DAILY @ LUNCH PRN 03/30/21 03/30/21 History gram/dose oral powder (Miralax) rosuvastatin 10 mg tablet 20 mg PO HS 03/30/21 03/30/21 History sennosides 8.6 mg tablet (senna) 8.6 mg PO DAILY 03/30/21 03/30/21 History sodium chloride 0.9 % 100 ml IV .CONT X 10HR/DAILY 03/30/21 03/30/21 History tacrolimus 1 mg capsule, 2 mg PO Q12H 03/30/21 03/30/21 History immediate-release Inpatient Medication List Acetaminophen (Acetaminophen 325 Mg Tab) 650 mg PO Q4H PRN PRN Reason: Pain Stop: 04/30/21 01:20 Last Admin: 04/02/21 09:23 Dose: 650 mg Documented by: [id number] Aspirin (Aspirin 81 Mg Ectab) 81 mg PO DAILY [facility] Stop: 04/30/21 08:59 Last Admin: 04/02/21 09:19 Dose: 81 mg Documented by: [id number] Admin: 04/01/21 08:35 Dose: 81 mg Documented by: [id number] Admin: 03/31/21 08:11 Dose: 81 mg Documented by: [id number] Docusate Sodium (Docusate Sodium 100 Mg Cap) 100 mg PO BID [facility] Stop: 04/30/21 01:59 Last Admin: 04/02/21 09:19 Dose: 100 mg Documented by: [id number] Admin: 04/01/21 20:54 Dose: 100 mg Documented by: [id number] Admin: 04/01/21 08:35 Dose: 100 mg Documented by: [id number] Admin: 03/31/21 21:04 Dose: 100 mg Documented by: [id number] Admin: 03/31/21 12:01 Dose: 100 mg Documented by: [id number] Admin: 03/31/21 01:55 Dose: 100 mg Documented by: [id number] Fenofibrate (Fenofibrate Nanocrystallized 48 Mg Tablet) 48 mg PO DAILY [facility] Stop: 04/30/21 08:59 Last Admin: 04/02/21 09:18 Dose: 48 mg Documented by: [id number] Admin: 04/01/21 08:35 Dose: 48 mg Documented by: [id number] Admin: 03/31/21 08:11 Dose: 48 mg Documented by: [id number] Folic Acid (Folic Acid 1 Mg Tab) 2 mg PO DAILY [facility] Stop: 04/30/21 08:59 Last Admin: 04/02/21 09:18 Dose: 2 mg Documented by: [id number] Admin: 04/01/21 08:35 Dose: 2 mg Documented by: [id number] Admin: 03/31/21 08:11 Dose: 2 mg Documented by: [id number] Cefepime HCl 2,000 mg/ Syringe 20 mls @ 5 mls/min IV Q24H [facility]; Protocol Stop: 04/10/21 16:59 Last Admin: 04/01/21 16:39 Dose: 5 mls/min Documented by: [id number] Admin: 03/31/21 17:29 Dose: 5 mls/min Documented by: [id number] Sodium Chloride (Nss 1000ml) 1,000 mls @ 80 mls/hr IV .[id number] [facility] Stop: 05/02/21 10:44 Last Admin: 04/02/21 11:59 Dose: 80 mls/hr Documented by: [id number] Levetiracetam (Levetiracetam 250 Mg Tab) 250 mg PO Q12 [facility] Stop: 04/30/21 01:59 Last Admin: 04/02/21 09:19 Dose: 250 mg Documented by: [id number] Admin: 04/01/21 20:54 Dose: 250 mg Documented by: [id number] Admin: 04/01/21 08:36 Dose: 250 mg Documented by: [id number] Admin: 03/31/21 21:04 Dose: 250 mg Documented by: [id number] Admin: 03/31/21 12:01 Dose: 250 mg Documented by: [id number] Admin: 03/31/21 01:55 Dose: 250 mg Documented by: [id number] Mycophenolate Mofetil (Mycophenolate Mofetil 250 Mg Cap) 750 mg PO BID [facility] Stop: 05/02/21 11:14 Last Admin: 04/02/21 12:31 Dose: 750 mg Documented by: [id number] Oxycodone HCl (Oxycodone Hcl Ir 5 Mg Tab (Immediate Release)) 5 mg PO Q4H PRN PRN Reason: Pain Stop: 04/13/21 20:26 Last Admin: 04/01/21 22:14 Dose: 5 mg Documented by: [id number] Admin: 04/01/21 00:36 Dose: 5 mg Documented by: [id number] Admin: 03/31/21 00:51 Dose: 5 mg Documented by: [id number] Rosuvastatin Calcium (Rosuvastatin Calcium 20 Mg Tab) 20 mg PO HS [facility] Stop: 04/30/21 01:59 Last Admin: 04/01/21 20:54 Dose: 20 mg Documented by: [id number] Admin: 03/31/21 21:04 Dose: 20 mg Documented by: [id number] Admin: 03/31/21 01:55 Dose: 20 mg Documented by: [id number] Sennosides (Senna 8.6 Mg Tab) 8.6 mg PO DAILY [facility] Stop: 04/30/21 08:59 Last Admin: 04/02/21 09:19 Dose: 8.6 mg Documented by: [id number] Admin: 04/01/21 08:35 Dose: 8.6 mg Documented by: [id number] Admin: 03/31/21 08:11 Dose: 8.6 mg Documented by: [id number] Tacrolimus (Tacrolimus 1 Mg Cap) 2 mg PO Q12 [facility] Stop: 04/30/21 01:59 Last Admin: 04/02/21 09:19 Dose: 2 mg Documented by: [id number] Admin: 04/01/21 20:54 Dose: 2 mg Documented by: [id number] Admin: 04/01/21 08:36 Dose: 2 mg Documented by: [id number] Admin: 03/31/21 21:04 Dose: 2 mg Documented by: [id number] Admin: 03/31/21 12:01 Dose: 2 mg Documented by: [id number] Admin: 03/31/21 01:54 Dose: 2 mg Documented by: [id number] Discontinued Medications Acetaminophen (Acetaminophen 325 Mg Tab) Confirm Administered Dose 650 mg .ROUTE .STK-MED ONE Stop: 03/30/21 20:01 Last Admin: 03/30/21 20:26 Dose: 650 mg Documented by: [id number] Sodium Chloride (Nss 1000ml) 1,000 mls @ 999 mls/hr IV .Q1H1M ONE Stop: 03/30/21 17:18 Last Infusion: 03/30/21 18:43 Dose: 0 mls/hr Documented by: [id number] Admin: 03/30/21 17:30 Dose: 999 mls/hr Documented by: [id number] Cefepime HCl (Maxipime) 2,000 mg in 20 mls @ 5 mls/min IV NOW STA; Protocol Stop: 03/30/21 16:21 Last Admin: 03/30/21 17:30 Dose: 5 mls/min Documented by: [id number] Potassium Chloride/Sodium Chloride (Normal Saline W/20 Meq Kcl) 20 meq in 1,000 mls @ 80 mls/hr IV .[id number] ONE Stop: 03/31/21 09:05 Last Infusion: 03/31/21 10:20 Dose: 0 mls/hr Documented by: [id number] Admin: 03/31/21 01:22 Dose: 80 mls/hr Documented by: [id number] Mycophenolate Mofetil (Mycophenolate Mofetil 250 Mg Cap) 1,000 mg PO BID [facility] Stop: 05/02/21 10:44 Last Admin: 04/02/21 11:48 Dose: Not Given Documented by: [id number] Potassium Chloride (Potassium Chloride 10 Meq Tabcr) 20 meq PO NOW STA Stop: 03/30/21 20:37 Last Admin: 03/31/21 00:51 Dose: 20 meq Documented by: [id number] Potassium Chloride (Potassium Chloride 10 Meq Tabcr) Confirm Administered Dose 20 meq PO .[employer] ONE Stop: 03/31/21 00:48 Last Admin: 03/31/21 01:16 Dose: Not Given Documented by: [id number] Description This is a 21 electrode EEG with a single channel dedicated to limited EKG. The electrodes were placed in accordance with the International 10-20 system. REPORT: At the onset of the EEG the patient is awake. The background is asymmetric. The posterior dominant rhythm is 9-10 Hz best seen on the left. There is attenuated activity in the right parietal temporal region. There is intermittent polymorphic delta activity seen on the left during drowsiness and light stages of sleep. Sleep spindles are noted on the left during stage II sleep. Photic stimulation does not induce any abnormalities. Interpretation This is an abnormal awake and drowsy EEG due to focal suppression in the right parietal/ temporal region consistent with recent right MCA stroke. There is no epileptiform discharges seen or electrographic seizures.
[2021-04-02] MEDS: CEFEPIME 2,000 MG in SYRINGE 0 ML IV SCH (17:18)
--- NOTE | 2021-04-02 19:36 | Hospitalist Progress Note ---
Date of Service April 02, 2021 Assessment & Plan (1) Severe sepsis: Plan: Admitted with severe sepsis secondary to Klebsiella UTI resuscitated with IV fluids and cefepime, currently clinically improved. Will de-escalate cefepime to cefdinir based on outpatient culture results. CT imaging of abdomen was unremarkable. (2) Subarachnoid hemorrhage: Plan: Subarachnoid hemorrhage noted on initial CT, possible hemorrhagic transformation after TPA administration for treatment of recent ischemic stroke, CT on 03/30 with hemorrhage in the right external capsule and right parietal lobe. Repeat head CT approximately 12 hours later revealed stable appearance of right external capsule and parietal lobe subacute infarcts with temporoparietal subarachnoid hemorrhage. No new areas of hemorrhage were seen. Neurology reviewed the case and no further concern for progression of subarachnoid hemorrhage or need for more aggressive treatment at this time. Keppra was initiated at outpatient facility out of concern for seizures and this is continued for seizure prophylaxis. He is clinically improved and reporting no headache or other worsening stroke symptoms. Continue to monitor closely in PCU. Continue to avoid Plavix per neurosurgery recommendations and holding on any DVT chemoprophylaxis. Will need to address with neurosurgery at discharge when this might be safe to restart or if a follow-up outpatient will be needed. (3) Renal transplant recipient: Plan: Immunocompromised patient, hx renal transplant ([facility], 2018) on CellCept, Tacrolimus with CellCept held until today. Nephro restarted it today. Creatinine overall improved from 3.12 on admission to 2.63. IVF per nephro. Repeat BMP daily. (4) Syncope: Plan: Syncope in setting of sepsis. Continue treatment plan above. (5) Left hemiplegia: Plan: secondary to recent stroke causing significant functional decline. Recently in rehab and will likely return there after this hospital stay. Cont passive ROM and PT/OT when able. (6) Muscle spasm: Plan: Pain and spasm after recent stroke, worse at night. Alternative options to oxycodone, not available at assisted, is baclofen and Neurontin. Both agents are available in assisted and will test him on these to see what will control symptoms. Start with baclofen this evening. (7) DVT prophylaxis: Plan: SCDs, chemoprophylaxis contraindicated in setting of SAH Full Code Dispo-likely return to rehab after this hospitalization [facility] and Anticipated Discharge Date Admission Date: March 30, 2021 Subjective The patient is a 41-year-old incarcerated man who has been admitted for sepsis likely secondary to urinary tract infection. Had a recent ischemic CVA status post TPA with embolectomy at [facility] in February 2021, now with syncopal episode at rehab facility post discharge. Work-up this admission including head imaging with petechial hemorrhage or mild hemorrhagic transformation on follow-up CT of the head. Plavix has been held and he continues on baby aspirin and Keppra to 50 mg p.o. twice daily for seizure prophylaxis. He is not on DVT chemo prophylaxis. Today he denies any headache, visual changes, difficulties with swallowing, speaking, word finding or other new stroke symptoms. He does have a flaccid left arm and left leg weakness as a result of his recent stroke. He reports significant spasms in his left arm improved with oxycodone. Spasms occur mostly at night. We discussed the importance of switching to an alternative agent as oxycodone is unavailable at the assisted. We will try baclofen. Also noted by nurse that patient had liquid stools and is on scheduled stool softeners. This was discontinued. Patient also reports excessive urination and notably nephrology has started IV fluids. Patient reports his left leg strength is improving, he is eating well and he feels he is improving generally. Review of Systems Review of Systems: All systems reviewed and otherwise negative except as indicated in subjective above. Physical Exam Physical Exam: CONSTITUTIONAL: WNWD, vitals as above, generally well-appearin g, NAD EYES: EOMI bilaterally, PERRL, normal conjunctivae, no scleral icterus ENT: external ear and nose normal, MMM NECK: trachea midline RESPIRATORY: clear to auscultation bilaterally, no crackles, rales or wheezes, normal respiratory effort CARDIOVASCULAR: regular rate and rhythm, S1 and 2 heard without murmurs, gallops or rubs, no JVD, no peripheral edema GASTROINTESTINAL: soft, nontender, ND, no guarding MUSCULOSKELETAL: strength 5/5 throughout except no strength at all in flaccid LUE and LLE testing reveals 2/5 hip flexion and plantar flexion with otherwise 0/5 strength in this extremity. Cannot stand and limited ability to move around the bed independently. SKIN: warm and dry NEUROLOGIC: patellar DTRs 2+ bilat. No facial palsy, no dysarthria. Touch, pain and proprioception normal. CN 2-12 grossly intact, no sensory deficit, normal cognition, normal speech, no tremor. PSYCHIATRIC: alert cooperative and oriented to person, place and time. Euthymic mood, makes good eye contact, language grossly intact, recent and remote memory grossly intact. Results & Data Results & Data ([facility]) Vital Signs (Past 12 Hours) Vital Signs Temp Pulse Pulse Pulse Resp BP Pulse Ox 04/02/21 16:41 36.5 C 79 18 111/77 96 04/02/21 16:00 78 04/02/21 11:37 36.6 C 86 16 96/60 L 94 04/02/21 07:46 81 Medications Administered Current Inpatient Medications Acetaminophen (Acetaminophen 325 Mg Tab) 650 mg PO Q4H PRN PRN Reason: Pain Stop: 04/30/21 01:20 Last Admin: 04/02/21 09:23 Dose: 650 mg Documented by: Aspirin (Aspirin 81 Mg Ectab) 81 mg PO DAILY [facility] Stop: 04/30/21 08:59 Last Admin: 04/02/21 09:19 Dose: 81 mg Documented by: Docusate Sodium (Docusate Sodium 100 Mg Cap) 100 mg PO BID [facility] Stop: 04/30/21 01:59 Last Admin: 04/02/21 14:37 Dose: Not Given Documented by: Fenofibrate (Fenofibrate Nanocrystallized 48 Mg Tablet) 48 mg PO DAILY [facility] Stop: 04/30/21 08:59 Last Admin: 04/02/21 09:18 Dose: 48 mg Documented by: Folic Acid (Folic Acid 1 Mg Tab) 2 mg PO DAILY [facility] Stop: 04/30/21 08:59 Last Admin: 04/02/21 09:18 Dose: 2 mg Documented by: Hydromorphone HCl (Hydromorphone Inj 0.5 Mg/0.5 Ml Syr) 0.25 mg IV Q6H PRN PRN Reason: Pain Stop: 04/14/21 01:20 Promethazine HCl 12.5 mg/ (Sodium Chloride) 50.5 mls @ 202 mls/hr IV Q6H PRN PRN Reason: Nausea And Vomiting Stop: 04/30/21 01:20 Cefepime HCl 2,000 mg/ Syringe 20 mls @ 5 mls/min IV Q24H [facility]; Protocol Stop: 04/10/21 16:59 Last Admin: 04/02/21 17:18 Dose: 5 mls/min Documented by: Sodium Chloride (Nss 1000ml) 1,000 mls @ 80 mls/hr IV .[id number] [facility] Stop: 05/02/21 10:44 Last Admin: 04/02/21 11:59 Dose: 80 mls/hr Documented by: Levetiracetam (Levetiracetam 250 Mg Tab) 250 mg PO Q12 [facility] Stop: 04/30/21 01:59 Last Admin: 04/02/21 09:19 Dose: 250 mg Documented by: Mycophenolate Mofetil (Mycophenolate Mofetil 250 Mg Cap) 750 mg PO BID [facility] Stop: 05/02/21 11:14 Last Admin: 04/02/21 12:31 Dose: 750 mg Documented by: Oxycodone HCl (Oxycodone Hcl Ir 5 Mg Tab (Immediate Release)) 5 mg PO Q4H PRN PRN Reason: Pain Stop: 04/13/21 20:26 Last Admin: 04/01/21 22:14 Dose: 5 mg Documented by: Polyethylene Glycol (Polyethylene (Miralax) 17 Gm Pack) 17 gm PO QDL PRN PRN Reason: Constipation Stop: 04/30/21 01:20 Rosuvastatin Calcium (Rosuvastatin Calcium 20 Mg Tab) 20 mg PO HS [facility] Stop: 04/30/21 01:59 Last Admin: 04/01/21 20:54 Dose: 20 mg Documented by: Sennosides (Senna 8.6 Mg Tab) 8.6 mg PO DAILY [facility] Stop: 04/30/21 08:59 Last Admin: 04/02/21 14:37 Dose: Not Given Documented by: Tacrolimus (Tacrolimus 1 Mg Cap) 2 mg PO Q12 [facility] Stop: 04/30/21 01:59 Last Admin: 04/02/21 09:19 Dose: 2 mg Documented by:
[2021-04-02] MEDS: ROSUVASTATIN CALCIUM 20 MG TAB PO SCH (20:48)
[2021-04-03] MEDS: SODIUM CHLORIDE 0.9% 1000ML 1,000 ML IV SCH ×2 (00:46→12:53)
[2021-04-03 06:07] LABS: Hematocrit (blood only) 38.7 % (42-52); Hemoglobin 12.6 g/dL (14.0-18.0); Mean Corpuscular Hemoglobin 30.3 pg (25-34); Mean Corpuscular Hgb Conc 32.6 g/dL (32-36); Mean Platelet Volume 8.8 fL (7.4-10.4); Platelet Count 326 K/uL (130-400); RDW Coefficient of Variation 12.4 % (11.5-14.5); RDW Standard Deviation 42.2 fL (36.4-46.3); Red Blood Count 4.16 M/uL (4.7-6.1); White Blood Count 6.16 K/uL (4.8-10.8)
[2021-04-03 06:24] LABS: Calcium 9.2 mg/dl (8.5-10.1); Creatinine Clr Calc Pharmacy 43.6 ml/min; Est GFR (African American) 39.5 ml/min; Est GFR (Non-African American) 34.1 ml/min; Potassium 3.9 mmol/L (3.5-5.1)
[2021-04-03] MEDS: FOLIC ACID 1 MG TAB PO SCH (08:18)
[2021-04-03] MEDS: ASPIRIN 81 MG ECTAB PO SCH (08:18)
[2021-04-03] MEDS: MYCOPHENOLATE MOFETIL 250 MG CAP PO SCH ×2 (08:18→20:48)
[2021-04-03] MEDS: TACROLIMUS 1 MG CAP PO SCH ×2 (08:18→20:48)
[2021-04-03] MEDS: FENOFIBRATE NANOCRYSTALLIZED 48 MG TABLET PO SCH (08:18)
[2021-04-03] MEDS: levETIRAcetam 250 MG TAB PO SCH ×2 (08:39→20:48)
--- NOTE | 2021-04-03 10:04 | Nephrology Progress Note ---
Date of Service April 03, 2021 Assessment & Plan (1) Renal transplant recipient: Plan: Patient is status post renal transplant on Prograf and CellCept. Patient has been taking only Prograf. Prograf level is acceptable. Creatinine downtrending to 2.2. Baseline around 1.5-1.9 per pt. -We will Continue CellCept 750 mg twice daily. -We will Continue saline at 80 mL/h. (2) Sepsis: Plan: Patient with suspected UTI. He is getting cefepime. He reports improvement. Renal dose antibiotics for current GFR. Admission and Anticipated Discharge Date Admission Date: March 30, 2021 Subjective Seen in follow-up for renal transplant. He feels better today. He is getting IV fluids. No dysuria. He is making more urine. Review of Systems Review of Systems: All other systems were reviewed and negative except as noted in HPI Physical Exam Physical Exam: General exam: Appears comfortable, no acute distress HEENT: Pupils are equal and reactive to light Neck: No JVD, neck is supple trachea is midline Respiratory system: Clear breath sounds bilaterally. Gastrointestinal: Abdomen is soft, non distended, non tender, bowel sounds are present CVS: Regular rate and rhythm. No murmurs, rubs or gallops Musculoskeletal: No joint or muscle tenderness Extremities: Non tender, no edema, peripheral pulses are present Neuro: Oriented, no tremors, no focal neurological deficits Skin: No rashes Results & Data ([facility]) Vital Signs (Past 12 Hours) Vital Signs Temp Pulse Pulse Resp BP Pulse Ox 04/03/21 08:15 36.7 C 76 20 111/74 95 04/03/21 07:00 74 04/03/21 04:08 36.8 C 81 18 110/73 94 04/02/21 23:08 82 04/02/21 23:05 37.4 C 80 14 114/73 97 Laboratory Results 04/03/21 02:13 04/03/21 05:39 WBC 6.16 RBC 4.16 L MCV 93.0 MCH 30.3 MCHC 32.6 RDW Std Deviation 42.2 RDW Coeff of Robert 12.4 Plt Count 326 MPV 8.8 (1) Sepsis Sepsis acute organ dysfunction status: unspecified Sepsis type: sepsis due to unspecified organism Qualified Code(s): A41.9 - Sepsis, unspecified organism
--- NOTE | 2021-04-03 10:55 | Hospitalist Progress Note ---
Date of Service April 03, 2021 Assessment & Plan (1) Severe sepsis: Plan: Admitted with severe sepsis secondary to Klebsiella UTI resuscitated with IV fluids and cefepime, currently clinically improved. Cont cefdinir based on outpatient culture results to complete the course. CT imaging of abdomen was unremarkable. (2) Subarachnoid hemorrhage: Plan: Subarachnoid hemorrhage noted on initial CT, possible hemorrhagic transformation after TPA administration for treatment of recent ischemic stroke, CT on 03/30 with hemorrhage in the right external capsule and right parietal lobe. Repeat head CT approximately 12 hours later revealed stable appearance of right external capsule and parietal lobe subacute infarcts with temporoparietal subarachnoid hemorrhage. No new areas of hemorrhage were seen. Neurology reviewed the case and no further concern for progression of subarachnoid hemorrhage or need for more aggressive treatment at this time. Keppra was initiated at outpatient facility out of concern for seizures and this is continued for seizure prophylaxis. He is clinically improved and reporting no headache or other worsening stroke symptoms. Continue to monitor closely in PCU. Continue to avoid Plavix per neurosurgery recommendations and holding on any DVT chemoprophylaxis. Will need to address with neurosurgery at discharge when this might be safe to restart or if a follow-up outpatient will be needed. (3) Renal transplant recipient: Plan: Immunocompromised patient, hx renal transplant ([facility], 2018) on CellCept, Tacrolimus with CellCept held until today. Nephro restarted this. Creatinine continues to improve with IVF. Repeat BMP daily. (4) Syncope: Plan: Syncope in setting of sepsis. Continue treatment plan above. (5) Left hemiplegia: Plan: secondary to recent stroke causing significant functional decline. Recently in rehab and will likely return there after this hospital stay. Cont passive ROM and PT/OT when able. (6) Muscle spasm: Plan: Pain and spasm after recent stroke, worse at night. Alternative options to oxycodone, not available at residential, is baclofen and Neurontin. Both agents are available in residential and will test him on these to see what will control symptoms. Success with baclofen overnight so would continue with this for now. . (7) DVT prophylaxis: Plan: SCDs, chemoprophylaxis contraindicated in setting of SAH Full Code Dispo-likely return to rehab after this hospitalization Jenny Hansen DO [facility] Hospitalist Admission and Anticipated Discharge Date Admission Date: March 30, 2021 Subjective The patient is a 41-year-old incarcerated man who has been admitted for sepsis likely secondary to urinary tract infection. Had a recent ischemic CVA status post TPA with embolectomy at [facility] in February 2021, now with syncopal episode at rehab facility post discharge. Work-up this admission including head imaging with petechial hemorrhage or mild hemorrhagic transformation on follow-up CT of the head. Plavix has been held and he continues on baby aspirin and Keppra to 50 mg p.o. twice daily for seizure prophylaxis. He is not on DVT chemo prophylaxis. Today he again denies stroke like symptoms. Denies headache or changes in his vision. HIs left arm spasms were reportedly controlled with Baclofen overnight. He denies any further liquid stools. He is eating well and he feels he is improving generally. Review of Systems Review of Systems: All other systems were reviewed and negative except as indicated in subjective. Physical Exam Physical Exam: CONSTITUTIONAL: WNWD, vitals as above, generally well- appearing, NAD EYES: normal conjunctivae, no scleral icterus ENT: external ear and nose normal, MMM NECK: trachea midline RESPIRATORY: clear to auscultation bilaterally, no crackles, rales or wheezes, normal respiratory effort CARDIOVASCULAR: regular rate and rhythm, S1 and 2 heard without murmurs, gallops or rubs, no JVD, no peripheral edema GASTROINTESTINAL: soft, nontender, ND, no guarding MUSCULOSKELETAL: strength 5/5 throughout except no strength at all in flaccid LUE and LLE testing reveals 2/5 hip flexion and plantar flexion with otherwise 0/5 strength in this extremity. Cannot stand and limited ability to move around the bed independently. SKIN: warm and dry NEUROLOGIC: patellar DTRs 2+ bilat. No facial palsy, no dysarthria. Touch, pain and proprioception normal. CN 2-12 grossly intact, no sensory deficit, normal cognition, normal speech, no tremor. PSYCHIATRIC: alert cooperative and oriented to person, place and time. Euthymic mood, makes good eye contact, language grossly intact, recent and remote memory grossly intact. Results & Data Results & Data ([facility]) Vital Signs (Past 12 Hours) Vital Signs Temp Pulse Pulse Resp BP Pulse Ox 04/03/21 08:15 36.7 C 76 20 111/74 95 04/03/21 07:00 74 04/03/21 04:08 36.8 C 81 18 110/73 94 Laboratory Results Short CBC 04/03/21 Range/Units 05:39 WBC 6.16 (4.8-10.8) K/uL Hgb 12.6 L (14.0-18.0) g/dL Hct 38.7 L (42-52) % Plt Count 326 (130-400) K/uL BMP 04/03/21 02:13 Sodium 136 Potassium 3.9 Chloride 105 Carbon Dioxide 25 BUN 27 H Creatinine 2.28 H D Glucose 94 Calcium 9.2 Medications Administered Current Inpatient Medications Acetaminophen (Acetaminophen 325 Mg Tab) 650 mg PO Q4H PRN PRN Reason: Pain Stop: 04/30/21 01:20 Last Admin: 04/02/21 09:23 Dose: 650 mg Documented by: Aspirin (Aspirin 81 Mg Ectab) 81 mg PO DAILY TANNER Stop: 04/30/21 08:59 Last Admin: 04/03/21 08:18 Dose: 81 mg Documented by: Baclofen (Baclofen 10 Mg Tab) 10 mg PO TID PRN PRN Reason: muscle spasm Stop: 05/02/21 20:59 Cefdinir (Cefdinir 300 Mg Cap) 300 mg PO Q12 TANNER Stop: 04/08/21 10:59 Fenofibrate (Fenofibrate Nanocrystallized 48 Mg Tablet) 48 mg PO DAILY TANNER Stop: 04/30/21 08:59 Last Admin: 04/03/21 08:18 Dose: 48 mg Documented by: Folic Acid (Folic Acid 1 Mg Tab) 2 mg PO DAILY TANNER Stop: 04/30/21 08:59 Last Admin: 04/03/21 08:18 Dose: 2 mg Documented by: Hydromorphone HCl (Hydromorphone Inj 0.5 Mg/0.5 Ml Syr) 0.25 mg IV Q6H PRN PRN Reason: Pain Stop: 04/14/21 01:20 Promethazine HCl 12.5 mg/ (Sodium Chloride) 50.5 mls @ 202 mls/hr IV Q6H PRN PRN Reason: Nausea And Vomiting Stop: 04/30/21 01:20 Sodium Chloride (Nss 1000ml) 1,000 mls @ 80 mls/hr IV .[id number] [facility] Stop: 05/02/21 10:44 Last Admin: 04/03/21 00:46 Dose: 80 mls/hr Documented by: Levetiracetam (Levetiracetam 250 Mg Tab) 250 mg PO Q12 TANNER Stop: 04/30/21 01:59 Last Admin: 04/03/21 08:39 Dose: 250 mg Documented by: Mycophenolate Mofetil (Mycophenolate Mofetil 250 Mg Cap) 750 mg PO BID TANNER Stop: 05/02/21 11:14 Last Admin: 04/03/21 08:18 Dose: 750 mg Documented by: Oxycodone HCl (Oxycodone Hcl Ir 5 Mg Tab (Immediate Release)) 5 mg PO Q4H PRN PRN Reason: Pain Stop: 04/13/21 20:26 Last Admin: 04/01/21 22:14 Dose: 5 mg Documented by: Polyethylene Glycol (Polyethylene (Miralax) 17 Gm Pack) 17 gm PO QDL PRN PRN Reason: Constipation Stop: 04/30/21 01:20 Rosuvastatin Calcium (Rosuvastatin Calcium 20 Mg Tab) 20 mg PO HS TANNER Stop: 04/30/21 01:59 Last Admin: 04/02/21 20:48 Dose: 20 mg Documented by: Tacrolimus (Tacrolimus 1 Mg Cap) 2 mg PO Q12 TANNER Stop: 04/30/21 01:59 Last Admin: 04/03/21 08:18 Dose: 2 mg Documented by:
[2021-04-03] MEDS: CEFDINIR 300 MG CAP PO SCH ×2 (11:47→20:48)
[2021-04-03] MEDS: BACLOFEN 10 MG TAB PO PRN (15:10)
[2021-04-03] MEDS: ROSUVASTATIN CALCIUM 20 MG TAB PO SCH (20:48)
[2021-04-04] MEDS: SODIUM CHLORIDE 0.9% 1000ML 1,000 ML IV SCH ×2 (02:06→17:41)
[2021-04-04] MEDS: BACLOFEN 10 MG TAB PO PRN ×2 (05:54→20:23)
[2021-04-04 08:22] LABS: BUN Creatinine Ratio 11.9 (10-20); Creatinine Clr Calc Pharmacy 49.7 ml/min; Est GFR (African American) 46.3 ml/min; Potassium 4.1 mmol/L (3.5-5.1)
[2021-04-04] MEDS: ASPIRIN 81 MG ECTAB PO SCH (10:16)
[2021-04-04] MEDS: levETIRAcetam 250 MG TAB PO SCH ×2 (10:17→20:18)
[2021-04-04] MEDS: MYCOPHENOLATE MOFETIL 250 MG CAP PO SCH ×2 (10:18→20:18)
[2021-04-04] MEDS: CEFDINIR 300 MG CAP PO SCH ×2 (10:18→20:18)
[2021-04-04] MEDS: TACROLIMUS 1 MG CAP PO SCH ×2 (10:19→20:18)
[2021-04-04] MEDS: FOLIC ACID 1 MG TAB PO SCH (10:19)
[2021-04-04] MEDS: FENOFIBRATE NANOCRYSTALLIZED 48 MG TABLET PO SCH (10:20)
--- NOTE | 2021-04-04 10:37 | Nephrology Progress Note ---
Date of Service April 04, 2021 Assessment & Plan (1) Renal transplant recipient: Plan: Patient is status post renal transplant on Prograf and CellCept as OP; both now back onboard as IP. 03/31 Prograf level is acceptable. Creatinine downtrending to 2.0. Baseline around 1.5-1.9 per pt. -We will Continue CellCept 750 mg twice daily and tacro 2 mg bid. -We will Continue saline at 80 mL/h. (2) Sepsis: Plan: Patient with suspected UTI. He was getting cefepime> cefdinir. He reports improvement. Renal dose antibiotics for current GFR. Admission and Anticipated Discharge Date Admission Date: March 30, 2021 Subjective feeling/doing well; tolerates po, no sob, no edema, no allograft pain ; voiding more than baseilne w/o other urinary sx Review of Systems Review of Systems: All systems reviewed & are unremarkable except as noted in Subjective Physical Exam Constitutional: well developed and well nourished Eyes: EOM intact bilaterally ENMT: Ears: no external ear abnormality Nose: no external nose abnormality Mouth: + dry oral mucous membranes Neck: no nuchal rigidity Respiratory: normal respiratory effort Auscultation: + diminished lung sounds Cardiovascular: RRR, no murmur, no edema Gastrointestinal (Abdomen): Inspection/Auscultation: normal bowel sounds Percussion/Palpation: abdomen soft; abdomen nontender NT allograft Musculoskeletal: Extremities: strength 5/5 throughout Skin: no rashes, warm and dry Neurologic: mcclendon, fluent speech, no tremor Results & Data ([facility]) Vital Signs (Past 12 Hours) Vital Signs Temp Pulse Resp BP Pulse Ox 04/04/21 08:19 37.0 C 80 16 130/85 95 04/04/21 02:49 36.9 C 77 17 106/68 96 04/03/21 23:05 36.9 C 75 18 122/79 98 Laboratory Results 04/03/21 05:39 04/04/21 07:25 (1) Sepsis Sepsis acute organ dysfunction status: unspecified Sepsis type: sepsis due to unspecified organism Qualified Code(s): A41.9 - Sepsis, unspecified organism
--- NOTE | 2021-04-04 14:29 | Hospitalist Progress Note ---
Date of Service April 04, 2021 Assessment & Plan (1) Severe sepsis: Plan: Admitted with severe sepsis secondary to Klebsiella UTI resuscitated with IV fluids and cefepime Transitioned to cefdinir. Blood cultures remain negative thus far. (2) Subarachnoid hemorrhage: Plan: Subarachnoid hemorrhage noted on initial CT, possible hemorrhagic transformation after TPA administration for treatment of recent ischemic stroke, CT on 03/30 with hemorrhage in the right external capsule and right parietal lobe. Repeat head CT approximately 12 hours later revealed stable appearance of right external capsule and parietal lobe subacute infarcts with temporoparietal subarachnoid hemorrhage. No new areas of hemorrhage were seen. Neurology reviewed the case and no further concern for progression of subarachnoid hemorrhage or need for more aggressive treatment at this time. Keppra was initiated at outpatient facility out of concern for seizures and this is continued for seizure prophylaxis. He is clinically improved and reporting no headache or other worsening stroke symptoms. Continue to avoid Plavix per neurosurgery recommendations and holding on any DVT chemoprophylaxis. It will need to be discussed with neurosurgery prior to discharge. (3) Renal transplant recipient: Plan: Immunocompromised patient, hx renal transplant ([facility], 2018) on CellCept, Tacrolimus. We will continue with CellCept and tacrolimus. Continue maintenance IV fluids at 80 mL/h. Continue to monitor daily BMP. Avoid any nephrotoxic agents. (4) Syncope: Plan: Syncope in setting of sepsis. Continue treatment plan above. (5) Left hemiplegia: Plan: secondary to recent stroke causing significant functional decline. Recently in rehab and will likely return there after this hospital stay. Cont passive ROM and PT/OT when able. (6) Muscle spasm: Plan: Pain and spasm after recent stroke, worse at night. Alternative options to oxycodone, not available at senior care, is baclofen and Neurontin. Both agents are available in senior care and will test him on these to see what will control symptoms. Continue baclofen for now as that has been successful. (7) DVT prophylaxis: Plan: SCDs, chemoprophylaxis contraindicated in setting of SAH Full Code Dispo-likely return to rehab after this hospitalization Admission and Anticipated Discharge Date Admission Date: March 30, 2021 Subjective Other than heDoing okay this morning. Remains with. No new focal deficits. Denies any headache, dizziness, neck pain or visual disturbance. Left-sided pain is improved. Review of Systems Review of Systems: All systems reviewed & are unremarkable except as noted in HPI & below Physical Exam Physical Exam: General: A&Ox3 HENT: NCAT, MMM, EOMI Eyes: PERRLA Neck: Supple, normal range of motion CVS: normal rate and rhythm Resp: b/l good breath sounds Abdomen: Soft, ND/NT, +BS Extremities: No c/c/e Neuro: facial droop and left sided weaknes noted, absence of any new focal deficits Skin: warm and dry, no rashes/lesions/errythema MSK: normal ROM, no joint swelling/erythema Results & Data Results & Data ([facility]) Vital Signs (Past 12 Hours) Vital Signs Temp Pulse Resp BP Pulse Ox 04/04/21 08:19 37.0 C 80 16 130/85 95 04/04/21 02:49 36.9 C 77 17 106/68 96
[2021-04-04] MEDS: ROSUVASTATIN CALCIUM 20 MG TAB PO SCH (20:18)
[2021-04-05] MEDS: SODIUM CHLORIDE 0.9% 1000ML 1,000 ML IV SCH (06:15)
[2021-04-05] MEDS: CEFDINIR 300 MG CAP PO SCH ×2 (07:46→20:37)
[2021-04-05] MEDS: TACROLIMUS 1 MG CAP PO SCH ×2 (07:46→20:38)
[2021-04-05] MEDS: FOLIC ACID 1 MG TAB PO SCH (07:47)
[2021-04-05] MEDS: MYCOPHENOLATE MOFETIL 250 MG CAP PO SCH ×2 (07:48→20:37)
[2021-04-05] MEDS: ASPIRIN 81 MG ECTAB PO SCH (07:48)
[2021-04-05] MEDS: FENOFIBRATE NANOCRYSTALLIZED 48 MG TABLET PO SCH (07:48)
[2021-04-05] MEDS: levETIRAcetam 250 MG TAB PO SCH ×2 (07:49→20:37)
[2021-04-05 07:50] LABS: BUN Creatinine Ratio 10.6 (10-20); Creatinine Clr Calc Pharmacy 49.2 ml/min; Est GFR (African American) 45.8 ml/min; Est GFR (Non-African American) 39.5 ml/min; Potassium 4.3 mmol/L (3.5-5.1)
--- NOTE | 2021-04-05 10:07 | Nephrology Progress Note ---
Date of Service April 05, 2021 Assessment & Plan (1) Renal transplant recipient: Plan: Acute kidney injury has resolved. patient is status post renal transplant on Prograf and CellCept as OP; both now back onboard as IP. 03/31 Prograf level is acceptable. Creatinine downtrended and now plateaued at 2.0. Baseline around 1.5-1.9 per pt. -We will Continue CellCept 750 mg twice daily and tacro 2 mg bid. -Stopped normal saline Continue daily basic metabolic panel while in-house We will sign off Discharge recommendations Resume routine outpatient immunosuppression at discharge Basic metabolic panel and tacrolimus trough to be ordered 1 week after hospital discharge Continue follow-up renal transplant care per outpatient routine Care coordinated with Dr. Butler (2) Sepsis: Plan: Patient with suspected UTI, though cultures were negative here he had positive outpatient culture and was on antibiotics on arrival; here, he was getting cefepime> cefdinir. He reports improvement. Renal dose antibiotics for current GFR. Admission and Anticipated Discharge Date Admission Date: March 30, 2021 Subjective No overnight events. He continues to eat well. No voiding concerns. No pain over allograft. No edema no shortness of breath. Review of Systems Review of Systems: All systems reviewed & are unremarkable except as noted in Subjective Physical Exam Constitutional: well developed and well nourished Eyes: EOM intact bilaterally ENMT: Ears: no external ear abnormality Nose: no external nose abnormality Mouth: + dry oral mucous membranes Neck: no nuchal rigidity Respiratory: normal respiratory effort Auscultation: + diminished lung sounds Cardiovascular: RRR, no murmur, no edema Gastrointestinal (Abdomen): Inspection/Auscultation: normal bowel sounds Percussion/Palpation: abdomen soft; abdomen nontender Musculoskeletal: Extremities: strength 5/5 throughout Skin: no rashes, warm and dry Neurologic: Stable chronic left-sided upper and lower extremity weakness Psychiatric: Orientation: oriented x 3 and cooperative Insight: good insight Judgement: good judgement Results & Data ([facility]) Vital Signs (Past 12 Hours) Vital Signs Temp Pulse Resp BP Pulse Ox 04/05/21 08:00 37.3 C 86 19 121/75 94 04/05/21 00:07 37.2 C 89 18 108/72 95 Laboratory Results 04/03/21 05:39 04/05/21 07:01 (1) Sepsis Sepsis acute organ dysfunction status: unspecified Sepsis type: sepsis due to unspecified organism Qualified Code(s): A41.9 - Sepsis, unspecified organism
--- NOTE | 2021-04-05 13:38 | Hospitalist Progress Note ---
Date of Service April 05, 2021 Assessment & Plan (1) Severe sepsis: Plan: Admitted with severe sepsis secondary to Klebsiella UTI resuscitated with IV fluids and cefepime Transitioned to cefdinir. Blood cultures remain negative thus far. (2) Subarachnoid hemorrhage: Plan: Subarachnoid hemorrhage noted on initial CT, possible hemorrhagic transformation after TPA administration for treatment of recent ischemic stroke, CT on 03/30 with hemorrhage in the right external capsule and right parietal lobe. Repeat head CT approximately 12 hours later revealed stable appearance of right external capsule and parietal lobe subacute infarcts with temporoparietal subarachnoid hemorrhage. No new areas of hemorrhage were seen. Neurology reviewed the case and no further concern for progression of subarachnoid hemorrhage or need for more aggressive treatment at this time. Keppra was initiated at outpatient facility out of concern for seizures and this is continued for seizure prophylaxis. He is clinically improved and reporting no headache or other worsening stroke symptoms. Continue to avoid Plavix per neurosurgery recommendations and holding on any DVT chemoprophylaxis. It will need to be discussed with neurosurgery prior to discharge. (3) Renal transplant recipient: Plan: Immunocompromised patient, hx renal transplant ([facility], 2018) on CellCept, Tacrolimus. We will continue with CellCept and tacrolimus. Appreciate nephrology input. Plan is to discontinue fluids today. Monitor BMP tomorrow. If remains stable, can be discharged. Avoid any nephrotoxic agents. (4) Syncope: Plan: Syncope in setting of sepsis. Continue treatment plan above. (5) Left hemiplegia: Plan: secondary to recent stroke causing significant functional decline. Recently in rehab and will likely return there after this hospital stay. Cont passive ROM and PT/OT when able. (6) Muscle spasm: Plan: Pain and spasm after recent stroke, worse at night. Alternative options to oxycodone, not available at snf, is baclofen and Neurontin. Both agents are available in snf and will test him on these to see what will control symptoms. Continue baclofen for now as that has been successful. (7) DVT prophylaxis: Plan: SCDs, chemoprophylaxis contraindicated in setting of SAH Full Code Dispo-likely return to rehab after this hospitalization Admission and Anticipated Discharge Date Admission Date: March 30, 2021 Subjective Patient is doing okay this morning. Awake and alert. No new issues. No new focal deficits. Left sided pain is at his baseline. Review of Systems Review of Systems: All systems reviewed & are unremarkable except as noted in HPI & below Physical Exam Physical Exam: General: A&Ox3 HENT: NCAT, MMM, EOMI Eyes: PERRLA Neck: Supple, normal range of motion CVS: normal rate and rhythm Resp: b/l good breath sounds Abdomen: Soft, ND/NT, +BS Extremities: No c/c/e Neuro: facial droop and left sided weaknes noted, absence of any new focal deficits Skin: warm and dry, no rashes/lesions/errythema MSK: normal ROM, no joint swelling/erythema Results & Data Results & Data ([facility]) Vital Signs (Past 12 Hours) Vital Signs Temp Pulse Resp BP Pulse Ox 04/05/21 11:02 36.6 C 78 18 119/79 97 04/05/21 08:00 37.3 C 86 19 121/75 94
[2021-04-05] MEDS: ROSUVASTATIN CALCIUM 20 MG TAB PO SCH (20:38)
[2021-04-06] MEDS: BACLOFEN 10 MG TAB PO PRN (06:06)
[2021-04-06] MEDS: TACROLIMUS 1 MG CAP PO SCH (07:08)
[2021-04-06] MEDS: FOLIC ACID 1 MG TAB PO SCH (07:09)
[2021-04-06] MEDS: FENOFIBRATE NANOCRYSTALLIZED 48 MG TABLET PO SCH (07:09)
[2021-04-06] MEDS: ASPIRIN 81 MG ECTAB PO SCH (07:09)
[2021-04-06] MEDS: levETIRAcetam 250 MG TAB PO SCH (07:10)
[2021-04-06] MEDS: MYCOPHENOLATE MOFETIL 250 MG CAP PO SCH (07:10)
[2021-04-06] MEDS: CEFDINIR 300 MG CAP PO SCH (07:10)
[2021-04-06 07:43] LABS: BUN Creatinine Ratio 11.8 (10-20); Calcium 9.2 mg/dl (8.5-10.1); Creatinine Clr Calc Pharmacy 47.1 ml/min; Est GFR (African American) 43.4 ml/min; Est GFR (Non-African American) 37.5 ml/min; Potassium 4.3 mmol/L (3.5-5.1)
--- NOTE | 2021-04-06 08:54 | Communication Note ---
Date of Service: April 06, 2021 Renal signed off on this pt yesterday w/ allograft function near but not at his OP baseline. Note slight uptick in creatinine today from 2.0 > 2.1 after stopping IVF. Recommend -observe one more day IP if clinically appropriate -do not resume IVF -encourage po fluids and food intake
--- NOTE | 2021-04-06 11:44 | Hospitalist Progress Note ---
Date of Service April 06, 2021 Assessment & Plan (1) Severe sepsis: Plan: Per Dr. Butler' notes including succeeding assessment and plan with addendum. Admitted with severe sepsis secondary to Klebsiella UTI resuscitated with IV fluids and cefepime Transitioned to cefdinir. Blood cultures remain negative. Patient has received total of 6 days of IV cefepime, will transition to 4 more days of p.o. cefdinir 300 mg twice a day. (2) Subarachnoid hemorrhage: Plan: Subarachnoid hemorrhage noted on initial CT, possible hemorrhagic transformation after TPA administration for treatment of recent ischemic stroke, CT on 03/30 with hemorrhage in the right external capsule and right parietal lobe. Repeat head CT approximately 12 hours later revealed stable appearance of right external capsule and parietal lobe subacute infarcts with temporoparietal subarachnoid hemorrhage. No new areas of hemorrhage were seen. Neurology reviewed the case and no further concern for progression of subarachnoid hemorrhage or need for more aggressive treatment at this time. Keppra was initiated at outpatient facility out of concern for seizures and this is continued for seizure prophylaxis. He is clinically improved and reporting no headache or other worsening stroke symptoms. Continue to avoid Plavix per neurosurgery recommendations and holding on any DVT chemoprophylaxis. --Remained stable neurologically Currently on aspirin 81 mg p.o. daily Hold Plavix, and other anticoagulation for now Please discussed with [facility] neurology and neuro vascular surger y department-Dr. Vasquez and Dr. Garcia-regarding when to resume Plavix safely (3) Renal transplant recipient: Plan: Immunocompromised patient, hx renal transplant ([facility], 2018) on CellCept, Tacrolimus. Nephrology consulted Creatinine 2.0, today 2.1 Please encouraged to increase oral fluid intake Repeat BMP including BUN/creatinine in 2 days to monitor renal function Monitor closely (4) Syncope: Plan: Syncope in setting of sepsis. (5) Left hemiplegia: Plan: secondary to recent stroke causing significant functional decline. Return to [facility] (6) Muscle spasm: Plan: Continue baclofen (7) DVT prophylaxis: Plan: SCDs, chemoprophylaxis contraindicated in setting of subarachnoid hemorrhage Full Code Dispo-return to [facility] Follow-up with [facility] neurology, neurosurgery department in 1 week Follow-up with nephrology, transplant team as scheduled Admission and Anticipated Discharge Date Admission Date: March 30, 2021 Subjective ff up for sepsis, Subarachnoid hemorrhage, etc seen resting in bed, comfortable guards at the bedside States he feels fine overall Feels much better overall Denies chest pain, shortness of breath palpitation, dizziness, abdominal pain, flank pain, problems with urination, fevers or chills Denies any new neurologic symptoms, headache, nausea No other symptoms Review of Systems Review of Systems: all noted and negative except for above Physical Exam Physical Exam: General- oriented x 3, not in distress, speaks in sentences with no effort or accessory muscle use Eyes- anicteric Neck- no JVD Lungs- clear breath sounds bilaterally, no rales/wheezes Heart- normal rate, regular rhythm; no murmurs Abdomen- normal bowel sounds, nondistended, soft, nontender Extremities- no pretibial edema, no calf tenderness Neuro- alert, oriented x 3; no gross focal neurologic deficits Skin- warm & dry Results & Data Results & Data ([facility]) Vital Signs (Past 12 Hours) Vital Signs Temp Pulse Resp BP Pulse Ox 04/06/21 07:37 37.0 C 74 18 99/65 L 95 04/06/21 03:45 37.2 C 72 16 109/68 97 all noted and reviewed including below
--- NOTE | 2021-04-06 11:47 | Discharge Summary ---
Date of Service April 06, 2021 Admission HPI Per Admitting Provider History obtained from patient and records. Medical history significant for recent ischemic CVA (R MCA) status [place] [facility] [place] HTN, hx renal transplant ([facility], 2018) on immunosuppression (CellCept, Tacrolimus), CRI (baseline creatinine 2s), possible seizure disorder, prediabetes. [place] [facility] [place] for left-sided weakness and sensory loss. Found to have right MCA infarct. Patient received TPA and underwent mechanical thrombectomy of right MCA M1 segment thrombus. Hemoglobin A1c noted to be 6 during confinement. Patient subsequently discharged to [facility] rehab facility on aspirin, Plavix, and Crestor for secondary stroke prevention. Last week, patient had a syncopal event at rehab facility. ER work-up negative. Syncope attributed to possible vasovagal event as per documentation Patient started on Keppra by rehab facility provider for possible seizures. EEG contemplated. Today, patient noted to be lethargic with fever, dysuria symptoms. Patient with back pain complaints as well. Outpatient urine CS with gram-negative rods on Gram stain. Patient initially started on Augmentin but later switched to Ceftriaxone at rehab facility. Patient had another syncopal event at rehab facility. Patient denies headache symptoms. No chest pain, no S OB. Given Cefepime at the ER for sepsis. Medical History as above Surgical History : Kidney transplant Family History : No stroke, no DM, no heart disease as per patient Personal/Social history : Non-smoker, no EtOH intake, prior work as a [employer] Admission Exam (Per Admitting) Constitutional GENERAL: Comfortable, no respiratory distress SKIN: Normal color, warm HEENT: [place] palpebral conjunctivae, no ptosis, dry buccal mucosa NECK : Supple, no tenderness CHEST : CTA, no tenderness HEART : Tachycardic, no obvious murmurs ABDOMEN: Some distention, nontender EXTREMITIES : No LE swelling/tenderness, no other conspicuous deformities noted NEUROLOGIC : Coherent, no facial asymmetry; MMTS RUE/RLE 5/5, LUE/LLE 1/5; gait and stance not assessed Discharge Data Consultations 03/30/21 18:21 ED Decision to Admit Stat 03/30/21 20:37 Consult Nephrology Routine 03/31/21 16:49 Consult Neurology Routine Procedures Performed HEAD CT NONCONTRAST CT DOSE: 614.27 mGy.cm HISTORY: syncope TECHNIQUE: Multiaxial CT images of the head were performed without the use of intravenous contrast. Automated exposure control was utilized for this study. A dose lowering technique was utilized adhering to the principles of ALARA. Comparison: None. Findings: The paranasal sinuses and mastoid air cells are clear. The calvarium and skull base are intact. Focal hypodensity within the right basal ganglia suggestive of a subacute infarct. There is also curvilinear hyperdensity within the right temporoparietal junction best seen on images 18 and 19 suggestive of trace subarachnoid hemorrhage. This could represent hemorrhagic transformation of the suspected right-sided infarct. There is also small focal area of hypodensity within the right parietal lobe on images 17 through 19. This also likely represents an area of infarct. Impression: 1. Small focal hypodense areas within the right external capsule and right parietal lobe likely representing subacute infarcts. 2. There are small focal serpiginous areas of hyperdensity along the sulci at these locations suggestive of subarachnoid hemorrhage. This could represent hemorrhagic transformation of the suspected infarct. [address] follow-up recommended to ensure stability of the trace hemorrhage. ACT 112: Negative or not required by law. Electronically signed by: Jordon Ybarra M.D. 03/30/2021 6:[address] head/brain wo con CLINICAL HISTORY: Intracranial hemorrhage, infarct Technique: Contiguous axial CT images of the head were acquired from the base of the skull to the vertex without intravenous contrast administration. Images were viewed in brain, subdural and bone windows. Automated dose lowering techniques and/or adjustment according to patient size were utilized for this exam. Comparison: Comparison is made to CT head 03/30/2021 Findings: There is redemonstration of hyperdensities consistent with subarachnoid hemorrhage along the sylvian sulcus and parietal lobe on the right. No new foci of hemorrhage are seen. Previously noted right-sided white matter hypodensities are again seen. Imaged portions of the paranasal sinuses and mastoid air cells are clear. The orbits appear normal. There are no acute fractures of the calvaria or scalp swelling. Impression: Stable appearance of right external capsule and parietal lobe subacute infarcts with temporoparietal subarachnoid hemorrhage which may represent hemorrhagic transformation. No new areas of hemorrhage are seen. ACT 112: Negative or not required by law. CT OF THE ABDOMEN AND PELVIS WITHOUT CONTRAST CLINICAL HISTORY: Back pain. Left leg pain. COMPARISON STUDY: No previous studies for comparison. TECHNIQUE: Axial images of the abdomen and pelvis were obtained without IV contrast. Images were reviewed in the axial, sagittal, and coronal planes. Automated exposure control was utilized for the study. A dose lowering technique was utilized adhering to the principles of ALARA. FINDINGS: Visualized portions of the lower chest demonstrate mild cardiomegaly. There are also mild airspace opacities within the right lower lobe. No pneumatosis, free air or portal venous gas is present. Evaluation of the abdomen and pelvis is suboptimal as unenhanced examination. There is appendix tendinosis. Unenhanced images of the spleen, adrenal glands and pancreas are unremarkable. There is no biliary or pancreatic ductal dilatation. Exam is compromised by motion artifact. Both north fork kidneys are atrophic. Water attenuation bilateral renal lesions are suboptimally assessed on this unenhanced exam. Several these contain minimal layering calcifications. 6 mm calculus within lower pole of the left kidney is noted. There are no ureteral calculi. There is no hydronephrosis. There is no evidence for a bowel obstruction. The appendix is normal. There is minimal infiltration adjacent to the right lower quadrant allograft. No perigraft fluid collection is present. There is no hydronephrosis of the allograft. Avascular necrosis of bilateral femoral heads is noted. There is diffuse sclerosis of visualized skeletal structures which is likely due to chronic renal disease. No acute lumbar spine fracture is noted. Please note that the lumbar canal is suboptimally assessed by CT. IMPRESSION: 1. No bowel obstruction. Normal appendix. 2. Mild nonspecific infiltration adjacent to the right lower quadrant renal allograft. This could be correlated with urinalysis and graft function. 3. Left-sided nephrolithiasis. No ureteral calculi. No hydronephrosis. 4. Hepatic steatosis. 5. Mild right lower lobe airspace opacities which could reflect an infectious process or asymmetric pulmonary edema. 6. Avascular necrosis of the bilateral femoral heads. 7. No lumbar spine fracture. Suboptimal evaluation of the central canal and neural foramen given CT technique. ACT 112: Negative or not required by law. Electronically signed by: Jaison Jolly M.D. 03/31/2021 6:52 AM Hospital Course (1) Severe sepsis: Per Dr. Butler' notes including succeeding assessment and plan with addendum. Admitted with severe sepsis secondary to Klebsiella UTI resuscitated with IV fluids and cefepime Transitioned to cefdinir. Blood cultures remain negative. Patient has received total of 6 days of IV cefepime, will transition to 4 more days of p.o. cefdinir 300 mg twice a day. (2) Subarachnoid hemorrhage: Subarachnoid hemorrhage noted on initial CT, possible hemorrhagic transformation after TPA administration for treatment of recent ischemic stroke, CT on 03/30 with hemorrhage in the right external capsule and right parietal lobe. Repeat head CT approximately 12 hours later revealed stable appearance of right external capsule and parietal lobe subacute infarcts with temporoparietal subarachnoid hemorrhage. No new areas of hemorrhage were seen. Neurology reviewed the case and no further concern for progression of subarachnoid hemorrhage or need for more aggressive treatment at this time. Keppra was initiated at outpatient facility out of concern for seizures and this is continued for seizure prophylaxis. He is clinically improved and reporting no headache or other worsening stroke symptoms. Continue to avoid Plavix per neurosurgery recommendations and holding on any DVT chemoprophylaxis. --Remained stable neurologically Currently on aspirin 81 mg p.o. daily Hold Plavix, and other anticoagulation for now Please discussed with [facility] neurology and neuro vascular surgery department-Dr. Vasquez and Dr. Garcia-regarding when to resume Plavix safely (3) Renal transplant recipient: Immunocompromised patient, hx renal transplant ([facility], 2018) on CellCept, Tacrolimus. Nephrology consulted Creatinine 2.0, today 2.1 Please encouraged to increase oral fluid intake Repeat BMP including BUN/creatinine in 2 days to monitor renal function Monitor closely (4) Syncope: Syncope in setting of sepsis. (5) Left hemiplegia: secondary to recent stroke causing significant functional decline. Return to [facility] (6) Muscle spasm: Continue baclofen (7) DVT prophylaxis: SCDs, chemoprophylaxis contraindicated in setting of subarachnoid hemorrhage Full Code Dispo-return to [facility] Follow-up with [facility] neurology, neurosurgery department in 1 week Follow-up with nephrology, transplant team as scheduled
== END 2021-04-06 14:19 | DRG 871 ==
LOC: ED 16:08 → SUATTDRO 20:36 → EDINP 20:36 → 2S 04-01 21:58 → 2N 04-03 15:31

== ENCOUNTER 2021-04-19 12:01 | Inpatient (IN) ==
[2021-04-19] MEDS ORDERED: SODIUM CHLORIDE 0.9% 1000ML 1,000 ML IV ONE ×2 (12:09→13:20)
[2021-04-19 12:51] LABS: Basophils # (auto) 0.02 K/uL (0-0.2); Basophils % (auto) 0.1 %; Eosinophils # (auto) 0.03 K/uL (0-0.5); Eosinophils % (auto) 0.2 %; Hematocrit (blood only) 35.6 % (42-52); Hemoglobin 11.9 g/dL (14.0-18.0); Immature Granulocytes # (auto) 0.05 K/uL (0.00-0.02); Immature Granulocytes % (auto) 0.3 %; Lymphocytes # (auto) 0.79 K/uL (1.2-3.4); Mean Corpuscular Hemoglobin 30.2 pg (25-34); Mean Corpuscular Hgb Conc 33.4 g/dL (32-36); Mean Corpuscular Volume 90.4 fL (80-100); Mean Platelet Volume 8.8 fL (7.4-10.4); Monocytes # (auto) 2.07 K/uL (0.11-0.59); Monocytes % (auto) 13.1 %; Neutrophils # (auto) 12.84 K/uL (1.4-6.5); Neutrophils % (auto) 81.3 %; Platelet Count 321 K/uL (130-400); RDW Coefficient of Variation 13.1 % (11.5-14.5); RDW Standard Deviation 43.7 fL (36.4-46.3); Red Blood Count 3.94 M/uL (4.7-6.1)
--- NOTE | 2021-04-19 12:58 | Emergency Department Note ---
Impression & Plan Acute renal failure, Sinus tachycardia, Fever, Urinary tract infection ED Provider Note NAME: KARINA [id number] OSCAR AGE: 41 SEX: M : 1980 ARRIVES VIA: Ambulance INFORMANT: Patient, EMS personnel ED PROVIDER(S): Geo Perez DO CHIEF COMPLAINT: Fever HPI: The patient is a 41-year-old male who has a history of subarachnoid hemorrhage as well as kidney transplant who presented to the emergency department for tachycardia. The patient is currently at [facility] recovering from a subarachnoid hemorrhage. Apparently the patient was diagnosed with urinary tract infection and started on Bactrim. He started noticing that his heart rate was increasing. The provider at [facility] sent the patient to the emergency department for further evaluation. At this time the patient does complain of some dysuria. He denies having any back pain. There is been no reported chest pain or vomiting. The patient denies having any shortness of breath or cough. He states otherwise he has been compliant with his usual medications. He was given Tylenol recently. He was noted to have a low-grade fever prior to coming to the emergency department. ROS: See above HPI for pertinent positives & negatives. A total of 10 systems reviewed and were otherwise negative. PAST MEDICAL HISTORY: See Below PAST SURGICAL HISTORY: See Below FAMILY HISTORY: See Below SOCIAL HISTORY: See Below HOME MEDICATIONS: See Below ALLERGIES: See Below VITALS: See Below PHYSICAL EXAMINATION: GENERAL: Patient is awake alert in no acute distress patient is resting comfortably and showing no signs of anxiety EYES: The conjunctivae are clear. The pupils are round and reactive. EARS, NOSE, MOUTH AND THROAT: The nose is without any evidence of any deformity. Mucous membranes are moist. Tongue is midline. NECK: The neck is nontender and supple. RESPIRATORY: Normal respiratory effort is noted there is no evidence of wheezing rhonchi or rales CARDIOVASCULAR: Tachycardic rate with regular rhythm was noted. There is no murmur. GASTROINTESTINAL: Abdomen was soft and mildly distended. There is no tenderness guarding rigidity. MUSCULOSKELETAL/EXTREMITIES: There is no evidence of gross deformity full range of motion is noted in the hips and shoulders. SKIN: The skin is warm and dry. Trace pedal edema was noted bilaterally. NEUROLOGIC: Patient is awake alert and oriented x3. MEDICAL DECISION MAKING: The patient is a 41-year-old male who has a history of renal transplant who presented to the emergency department for evaluation of tachycardia. The patient is currently living at [facility]. He is inpatient rehab after having a subarachnoid hemorrhage. Patient does have a history of renal disease and has a history of renal transplant. He was recently diagnosed with a urinary tract infection and started on Bactrim as an outpatient. The patient presented because of ongoing fever and tachycardia. The patient ultimately was found to have signs of renal failure. He was treated with multiple fluid boluses as well as IV antibiotics in the emergency department. I discussed the patient's laboratory and radiographic studies with him. [facility] have agreed to evaluate the patient in the emergency department for further management and disposition. The patient's symptoms did improve somewhat. Triage Nursing notes reviewed. Prior medical records reviewed Vital Signs: reviewed and remarkable for elevated blood pressure and tachycardia. Differential diagnosis: Viral syndrome, otitis, pharyngitis, pneumonia, influenza, meningitis, urinary tract infection, sepsis, bacteremia, as well as other pathologies. ER treatment provided: See below Diagnostics interpreted by me: ECG: EKG was obtained in the emergency department. My interpretation is sinus tachycardia 111 bpm. There is no ectopy. There was no acute ST segment abnormalities noted. This was compared to a tracing from March 302020. No changes were noted. Cardiac Monitoring: An order was placed for continuous cardiac monitoring. The monitor shows a rate of 117 bpm with sinus tachycaria rhythm. Laboratory studies: As stated above and show below. Imaging studies: See below Consultation(s): 1340: [facility] evaluate the patient in the emergency department for further management and disposition. Past Med/Surg History Medical History ABEBA (acute kidney injury) DVT prophylaxis Left hemiplegia Muscle spasm Sepsis Severe sepsis Subarachnoid hemorrhage Syncope Surgical History Renal transplant recipient Social History Smoking Status: Never smoker Hx Alcohol Use: No Hx Substance Use: No Preferred Language: Kyrgyz Communication Ability: Effective [employer] Required: No Beliefs That Will Affect Care: None marital status: Unknown Current Living Situation: Other Current Living Situation Comment: inmate [facility] Feels Safe at Home: Yes Assistive Devices: None Allergies Allergies Allergy/AdvReac Type Severity Reaction Status Date / Time albuterol AdvReac Shakiness Verified 04/19/21 14:16 Home Meds Home Medications Medication Instructions Recorded Confirmed acetaminophen 325 mg tablet 650 mg PO Q4H PRN 03/30/21 04/19/21 (Tylenol) aspirin 81 mg tablet,delayed 81 mg PO DAILY 03/30/21 04/19/21 release fenofibrate nanocrystallized 48 mg 48 mg PO DAILY 03/30/21 04/19/21 tablet folic acid 1 mg tablet 2 mg PO DAILY 03/30/21 04/19/21 levetiracetam 250 mg tablet 250 mg PO Q12H 03/30/21 04/19/21 (Keppra) magnesium hydroxide 400 mg/5 mL 30 ml PO DAILY PRN 03/30/21 04/19/21 oral suspension (Milk of Magnesia) polyethylene glycol 3350 17 17 g PO .DAILY @ LUNCH PRN 03/30/21 04/19/21 gram/dose oral powder (Miralax) rosuvastatin 10 mg tablet 20 mg PO HS 03/30/21 03/30/21 sennosides 8.6 mg tablet (senna) 8.6 mg PO DAILY 03/30/21 04/19/21 sodium chloride 0.9 % 100 ml IV .CONT X 10HR/DAILY 03/30/21 04/19/21 tacrolimus 1 mg capsule, 2 mg PO Q12H 03/30/21 04/19/21 immediate-release allopurinol 100 mg tablet 100 mg PO DAILY 04/19/21 04/19/21 atorvastatin 40 mg tablet 40 mg PO HS 04/19/21 04/19/21 baclofen 5 mg tablet 5 mg PO TID PRN 04/19/21 04/19/21 bisacodyl 10 mg rectal suppository 10 mg SD DAILY PRN 04/19/21 04/19/21 ehiqyqkygm-vixtxwwyqkvlk-srdyxcam 1 tab PO Q4H PRN 04/19/21 04/19/21 50 mg-325 mg-40 mg tablet dextrose 40 % oral gel 1 ea PO ONCE PRN 04/19/21 04/19/21 sodium phosphates 19 gram-7 133 ml SD HS PRN 04/19/21 04/19/21 gram/118 mL enema (Fleet Enema) sulfamethoxazole 400 1 tab PO BID 04/19/21 04/19/21 mg-trimethoprim 80 mg tablet Previous Rx's Medication Instructions Recorded mycophenolate mofetil 250 mg 750 mg PO BID #30 cap 04/06/21 capsule Results & Data (ED) Vital Signs Vital Signs - 24 hr 04/19/21 12:01 04/19/21 12:23 04/19/21 13:44 Temperature 37.2 C Temperature Source Oral Pulse Rate 111 H Pulse Rate [Apical] 90 Pulse Rate from SpO2 Sensor Respiratory Rate 17 18 Respiratory Effort / Characteristics Non-Labored Respiratory Depth Normal Blood Pressure 106/72 Blood Pressure [Left Arm] 111/74 Blood Pressure Mean 83 Blood Pressure Mean [Left Arm] 86 Pulse Oximetry 96 96 Oxygen Delivery Method Room Air Room Air Room Air Sepsis Recent Fever Within 48 Hours Yes Sepsis New/Unexplained Change in Mental Status No Sepsis Action Taken by Nursing No Action Required 04/19/21 13:47 04/19/21 15:00 04/19/21 15:21 Temperature Temperature Source Pulse Rate 79 Pulse Rate [Apical] 80 Pulse Rate from SpO2 Sensor 79 Respiratory Rate 14 12 Respiratory Effort / Characteristics Respiratory Depth Blood Pressure Blood Pressure [Left Arm] 125/87 Blood Pressure Mean Blood Pressure Mean [Left Arm] 99 Pulse Oximetry 96 97 Oxygen Delivery Method Room Air Room Air Sepsis Recent Fever Within 48 Hours Sepsis New/Unexplained Change in Mental Status Sepsis Action Taken by Nursing 04/19/21 16:00 04/19/21 17:23 04/19/21 18:00 Temperature Temperature Source Pulse Rate 88 103 H 111 H Pulse Rate [Apical] 106 H Pulse Rate from SpO2 Sensor 87 Respiratory Rate 16 23 22 Respiratory Effort / Characteristics Respiratory Depth Blood Pressure 130/88 149/89 H Blood Pressure [Left Arm] 149/89 H Blood Pressure Mean 102 109 Blood Pressure Mean [Left Arm] 109 Pulse Oximetry 97 97 95 Oxygen Delivery Method Sepsis Recent Fever Within 48 Hours Sepsis New/Unexplained Change in Mental Status Sepsis Action Taken by Nursing 04/19/21 18:22 Temperature Temperature Source Pulse Rate 117 H Pulse Rate [Apical] Pulse Rate from SpO2 Sensor Respiratory Rate 21 Respiratory Effort / Characteristics Respiratory Depth Blood Pressure 150/88 H Blood Pressure [Left Arm] Blood Pressure Mean 108 Blood Pressure Mean [Left Arm] Pulse Oximetry 95 Oxygen Delivery Method Sepsis Recent Fever Within 48 Hours Sepsis New/Unexplained Change in Mental Status Sepsis Action Taken by [facility] Medications Current Medication List: was personally reviewed by me Laboratory Data Attestation: I reviewed the patient's lab results. Result diagrams: 04/19/21 12:16 04/19/21 16:06 Lab Results 04/19/21 04/19/21 04/19/21 Range/Units 12:16 12:16 12:16 WBC 15.80 H (4.8-10.8) K/uL RBC 3.94 L (4.7-6.1) M/uL Hgb 11.9 L (14.0-18.0) g/dL Hct 35.6 L (42-52) % MCV 90.4 (80-100) fL MCH 30.2 (25-34) pg MCHC 33.4 (32-36) g/dL RDW Std Deviation 43.7 (36.4-46.3) fL RDW Coeff of Robert 13.1 (11.5-14.5) % Plt Count 321 (130-400) K/uL MPV 8.8 (7.4-10.4) fL Immature Gran % (Auto) 0.3 % Neut % (Auto) 81.3 % Lymph % (Auto) 5.0 % [place] % (Auto) 13.1 % Eos % (Auto) 0.2 % Baso % (Auto) 0.1 % Neut # (Auto) 12.84 H (1.4-6.5) K/uL Lymph # (Auto) 0.79 L (1.2-3.4) K/uL [place] # (Auto) 2.07 H (0.11-0.59) K/uL Eos # (Auto) 0.03 (0-0.5) K/uL Baso # (Auto) 0.02 (0-0.2) K/uL Immature Gran # (Auto) 0.05 H (0.00-0.02) K/uL PT 11.9 (9.0-12.0) Seconds INR 1.2 H (0.9-1.1) APTT 31.9 H (21.0-31.0) Seconds PTT Ratio 1.2 Sodium 131 L (136-145) mmol/L Potassium 4.0 (3.5-5.1) mmol/L Chloride 98 (98-107) mmol/L Carbon Dioxide 20 L (21-32) mmol/L Anion Gap 13.0 H (3-11) BUN 64 H (7-18) mg/dl Creatinine 5.88 H* (0.6-1.4) mg/dl Est Cr Clr Drug Dosing 16.9 ml/min Est GFR ( Amer) 12.6 ml/min Est GFR (Non-Af Amer) 10.9 ml/min BUN/Creatinine Ratio 10.9 (10-20) Glucose 112 H (70-99) mg/dl Lactate (0.4-2.0) mmol/L Calcium 9.2 (8.5-10.1) mg/dl Magnesium 1.9 (1.8-2.4) mg/dl Total Bilirubin 0.9 (0.2-1) mg/dl AST 73 H (15-37) U/L ALT 118 H (12-78) U/L Alkaline Phosphatase 124 H (45-117) U/L Troponin I < 0.015 (0-0.045) ng/ml Total Protein 7.7 (6.4-8.2) gm/dl Albumin 2.4 L (3.4-5.0) gm/dl Globulin 5.3 H (2.5-4.0) gm/dl Albumin/Globulin Ratio 0.5 L (0.9-2) Procalcitonin (0-0.5) ng/ml Urine Color Urine Appearance (Clear) Urine pH (4.5-7.5) Ur Specific [place] (1.000-1.030) Urine Protein (Negative) Urine Glucose (UA) (Negative) Urine Ketones (Negative) Urine Blood (Negative) Urine Nitrite (Negative) Urine Bilirubin (Negative) Urine Urobilinogen (Negative) Ur Leukocyte Esterase (Negative) Urine WBC (Auto) (0-5) /hpf Urine RBC (Auto) (0-4) /hpf U Hyaline Cast (Auto) (0-5) /lpf U Epithel Cells (Auto) (0-5) /lpf Urine Bacteria (Auto) (Negative) Urine Yeast SARS-CoV-2 (PCR) (Negative) 04/19/21 04/19/21 04/19/21 Range/Units 12:16 12:28 12:36 WBC (4.8-10.8) K/uL RBC (4.7-6.1) M/uL Hgb (14.0-18.0) g/dL Hct (42-52) % MCV (80-100) fL MCH (25-34) pg MCHC (32-36) g/dL RDW Std Deviation (36.4-46.3) fL RDW Coeff of Robert (11.5-14.5) % Plt Count (130-400) K/uL MPV (7.4-10.4) fL Immature Gran % (Auto) % Neut % (Auto) % Lymph % (Auto) % [place] % (Auto) % Eos % (Auto) % Baso % (Auto) % Neut # (Auto) (1.4-6.5) K/uL Lymph # (Auto) (1.2-3.4) K/uL [place] # (Auto) (0.11-0.59) K/uL Eos # (Auto) (0-0.5) K/uL Baso # (Auto) (0-0.2) K/uL Immature Gran # (Auto) (0.00-0.02) K/uL PT (9.0-12.0) Seconds INR (0.9-1.1) APTT (21.0-31.0) Seconds PTT Ratio Sodium (136-145) mmol/L Potassium (3.5-5.1) mmol/L Chloride (98-107) mmol/L Carbon Dioxide (21-32) mmol/L Anion Gap (3-11) BUN (7-18) mg/dl Creatinine (0.6-1.4) mg/dl Est Cr Clr Drug Dosing ml/min Est GFR ( Amer) ml/min Est GFR (Non-Af Amer) ml/min BUN/Creatinine Ratio (10-20) Glucose (70-99) mg/dl Lactate 1.1 (0.4-2.0) mmol/L Calcium (8.5-10.1) mg/dl Magnesium (1.8-2.4) mg/dl Total Bilirubin (0.2-1) mg/dl AST (15-37) U/L ALT (12-78) U/L Alkaline Phosphatase (45-117) U/L Troponin I (0-0.045) ng/ml Total Protein (6.4-8.2) gm/dl Albumin (3.4-5.0) gm/dl Globulin (2.5-4.0) gm/dl Albumin/Globulin Ratio (0.9-2) Procalcitonin 5.75 H (0-0.5) ng/ml Urine Color Urine Appearance (Clear) Urine pH (4.5-7.5) Ur Specific [place] (1.000-1.030) Urine Protein (Negative) Urine Glucose (UA) (Negative) Urine Ketones (Negative) Urine Blood (Negative) Urine Nitrite (Negative) Urine Bilirubin (Negative) Urine Urobilinogen (Negative) Ur Leukocyte Esterase (Negative) Urine WBC (Auto) (0-5) /hpf Urine RBC (Auto) (0-4) /hpf U Hyaline Cast (Auto) (0-5) /lpf U Epithel Cells (Auto) (0-5) /lpf Urine Bacteria (Auto) (Negative) Urine Yeast SARS-CoV-2 (PCR) NEGATIVE (Negative) 04/19/21 04/19/21 Range/Units 16:06 Unknown WBC (4.8-10.8) K/uL RBC (4.7-6.1) M/uL Hgb (14.0-18.0) g/dL Hct (42-52) % MCV (80-100) fL MCH (25-34) pg MCHC (32-36) g/dL RDW Std Deviation (36.4-46.3) fL RDW Coeff of Robert (11.5-14.5) % Plt Count (130-400) K/uL MPV (7.4-10.4) fL Immature Gran % (Auto) % Neut % (Auto) % Lymph % (Auto) % [place] % (Auto) % Eos % (Auto) % Baso % (Auto) % Neut # (Auto) (1.4-6.5) K/uL Lymph # (Auto) (1.2-3.4) K/uL [place] # (Auto) (0.11-0.59) K/uL Eos # (Auto) (0-0.5) K/uL Baso # (Auto) (0-0.2) K/uL Immature Gran # (Auto) (0.00-0.02) K/uL PT (9.0-12.0) Seconds INR (0.9-1.1) APTT (21.0-31.0) Seconds PTT Ratio Sodium 133 L (136-145) mmol/L Potassium 4.0 (3.5-5.1) mmol/L Chloride 104 (98-107) mmol/L Carbon Dioxide 20 L (21-32) mmol/L Anion Gap 9.0 (3-11) BUN 60 H (7-18) mg/dl Creatinine 5.23 H* D (0.6-1.4) mg/dl Est Cr Clr Drug Dosing 19.0 ml/min Est GFR ( Amer) 14.5 ml/min Est GFR (Non-Af Amer) 12.5 ml/min BUN/Creatinine Ratio 11.5 (10-20) Glucose 106 H (70-99) mg/dl Lactate (0.4-2.0) mmol/L Calcium 8.5 (8.5-10.1) mg/dl Magnesium (1.8-2.4) mg/dl Total Bilirubin (0.2-1) mg/dl AST (15-37) U/L ALT (12-78) U/L Alkaline Phosphatase (45-117) U/L Troponin I (0-0.045) ng/ml Total Protein (6.4-8.2) gm/dl Albumin (3.4-5.0) gm/dl Globulin (2.5-4.0) gm/dl Albumin/Globulin Ratio (0.9-2) Procalcitonin (0-0.5) ng/ml Urine Color Yellow Urine Appearance Cloudy A (Clear) Urine pH 5.0 (4.5-7.5) Ur Specific [place] 1.012 (1.000-1.030) Urine Protein 1+ H (Negative) Urine Glucose (UA) Negative (Negative) Urine Ketones Negative (Negative) Urine Blood 1+ H (Negative) Urine Nitrite Negative (Negative) Urine Bilirubin Negative (Negative) Urine Urobilinogen Negative (Negative) Ur Leukocyte Esterase 1+ H (Negative) Urine WBC (Auto) >30 H (0-5) /hpf Urine RBC (Auto) 0-4 (0-4) /hpf U Hyaline Cast (Auto) 1-5 (0-5) /lpf U Epithel Cells (Auto) 0-5 (0-5) /lpf Urine Bacteria (Auto) 1+ H (Negative) Urine Yeast Not Reportable SARS-CoV-2 (PCR) (Negative) Administered Medications Discontinued Medications Sodium Chloride (Nss 1000ml) 1,000 mls @ 999 mls/hr IV .Q1H1M ONE Stop: 04/19/21 13:09 Last Infusion: 04/19/21 14:04 Dose: 0 mls/hr Documented by: [id number] Admin: 04/19/21 12:28 Dose: 999 mls/hr Documented by: [id number] Sodium Chloride (Nss 1000ml) 1,000 mls @ 999 mls/hr IV .Q1H1M ONE Stop: 04/19/21 14:20 Last Infusion: 04/19/21 15:00 Dose: 0 mls/hr Documented by: [id number] Admin: 04/19/21 13:42 Dose: 999 mls/hr Documented by: [id number] Ceftriaxone Sodium (Rocephin) 1,000 mg in 50 mls @ 100 mls/hr IV NOW STA Stop: 04/19/21 13:50 Last Infusion: 04/19/21 14:13 Dose: 0 mls/hr Documented by: [id number] Admin: 04/19/21 13:41 Dose: 100 mls/hr Documented by: [id number] Imaging Data Radiologist's Impression: Abdomen/Pelvis CT 04/19/21 12:09 CT abd pelvis wo con CLINICAL HISTORY: fever . Weakness. Patient reports recent diagnosis of urinary tract infection. COMPARISON STUDY: 03/31/2021 CT DOSE: 646.27 mGy.cm TECHNIQUE: Standard CT of the Abdomen and Pelvis was performed without IV contrast. The patient did not receive oral contrast. A dose lowering technique was utilized adhering to the principles of ALARA. FINDINGS: Lung base: The lung bases are clear. Abdominal cavity: There is no evidence for abdominal mass, adenopathy or ascites. Liver: The liver is homogeneous in attenuation on these limited noncontrast images.. Spleen: The spleen is homogeneous in attenuation on these limited noncontrast images. Pancreas: The pancreas is homogeneous in attenuation on these limited noncontrast images. Gall Bladder: The gallbladder is well distended with no evidence for cholelithiasis, wall thickening or pericholecystic edema.. Adrenal glands: The adrenal glands are normal in size and attenuation on these limited noncontrast images. Kidneys: The kidneys are again atrophic bilaterally. On the left side, there is again a low-attenuation lesion measuring approximately 3.1 cm with calcification in its wall. The findings are most characteristic of a Bosniak type II cyst. However, there is increased attenuation of the fluid suggesting possible hemorrhage. Follow-up left renal ultrasound is recommended for further evaluation and confirmation. No other evidence for mass lesion is seen. There is a transplanted right pelvic kidney. It is homogeneous in attenuation with no inflammatory changes or evidence of pyelonephritis. There is no evidence for renal calculus or hydronephrosis. Bowel: The bowel loops are normally placed within the abdomen and pelvis without evidence for dilatation or obstruction. There is no evidence for mass lesion. There are no inflammatory changes present. There is no evidence for free air. There is evidence for a normal appendix in the right lower quadrant. Bladder: There is no evidence for focal bladder wall thickening, calculus or diverticulum. However, there is mild diffuse thickening of the bladder wall which can be seen in the presence of cystitis. : There is no evidence for pelvic mass or adenopathy. The patient is status post hysterectomy. Vasculature: There is no evidence for focal aneurysmal dilatation of the abdominal aorta. Osseous structures: There is no acute osseous pathology. 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 IMPRESSION: 1. No CT evidence for pyelonephritis of the [place] or transplanted kidney. 2. There is thickening of the bladder wall which can be seen with cystitis. 3. 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 However, increased attenuation is present and follow-up ultrasound is recommended for further evaluation confirmation. 4. No other evidence for acute intra-abdominal or pelvic abnormality. 5. Additional nonacute findings are delineated above. ACT 112: Negative or not required by law. Electronically signed by: Jason Canales M.D. 04/19/2021 1:37 PM Chest X-Ray 04/19/21 12:09 XR chest 1V portable HISTORY: 41 years-old Male SEPSIS acute sepsis COMPARISON: Chest radiograph 03/30/2021 TECHNIQUE: Portable AP view of the chest FINDINGS: Cardiomediastinal and hilar silhouettes are within normal limits. No pneumothorax, pleural effusion, airspace consolidation or overt pulmonary edema. There is no acute fracture. IMPRESSION: No acute process. ACT 112: Negative or not required by law. The above report was generated using voice recognition software. It may contain grammatical, syntax or spelling errors. Electronically signed by: Shankar Locke M.D. 04/19/2021 1:[address] 04/19/21 12:09 CT OF THE HEAD WITHOUT CONTRAST CLINICAL HISTORY: Weakness. COMPARISON STUDY: Head CT March 31, 2021. CT DOSE: 614.27 mGy.cm TECHNIQUE: Helical axial images of the head were obtained without IV contrast. Automated exposure control was utilized for the study. A dose lowering technique was utilized adhering to the principles of ALARA. FINDINGS: No acute intracranial, midline shift or mass effect is present. Ventricular system is unremarkable. Basal cisterns are patent. There are no e xtra-axial collections. 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 Small foci of suspected hemorrhage on that exam have resolved. There are no findings to suggest acute dural sinus thrombosis or acute territorial infarct. There are no significant calvarial abnormalities. IMPRESSION: 1. No acute intracranial findings. 2. Expected evolution of the subacute to chronic infarcts within the right exte rnal capsule and right parietal lobe since prior CT. ACT 112: Negative or not required by law. Electronically signed by: Jaison Jolly M.D. 04/19/2021 1:33 PM Renal Ultrasound 04/19/21 14:57 US renal transplant RT HISTORY: 41 years-old Male eval for severe ABEBA acute on chronic kidney disease COMPARISON: CT abdomen and pelvis 04/19/2021 TECHNIQUE: Multiple real-time sonographic images of the kidneys were obtained assessing grayscale appearance and color flow FINDINGS: Right [place] kidney is atrophic not well visualized. Left [place] kidney is also atrophic and better seen on the comparison CT study of same day. The calcifications of the inferior pole left kidney are also better characterized on the CT study. Several complex cysts of the left kidney measure up to 2.7 x 2.4 x 3.4 cm. No definite solid renal mass lesions identified. No hydronephrosis. Transplanted kidney within the abdominal right lower quadrant measures 11.2 cm in length. The perinephric edema seen on the CT study of same day is not well evaluated by ultrasound. No hydronephrosis. Patent right renal artery. IMPRESSION: 1. Unremarkable appearance of the transplanted kidney within the abdominal right lower quadrant. No hydronephrosis. The perinephric and periureteral edema seen on the CT study of same day may represent an ascending infection. Correlate with urinalysis. 2. Atrophic [place] kidneys. 3. Complex hypoechoic lesions of the left kidney measuring up to 3.4 cm are suggestive of complex cysts. A 6 month follow-up CT renal protocol study is recommended. ACT 112: Negative or not required by law. The above report was generated using voice recognition software. It may contain grammatical, syntax or spelling errors. Electronically signed by: Shankar Locke M.D. 04/19/2021 5:32 PM Discharge Plan Visit Data Chief Complaint: Tachycardia Stated Complaint: TACHYCARDIA, HEADACHE ED Provider: Geo Perez Discharge Problem: Acute renal failure, Sinus tachycardia, Fever, Urinary tract infection Patient Disposition: Being Evaluated by Hospitalist Forms Stand Alone Forms: [facility] Prescriptions Prescriptions: No Action aspirin 81 mg Tablet,Delayed Release (Dr/Ec) 81 mg PO DAILY RF: 0 tacrolimus 1 mg Capsule 2 mg PO Q12H RF: 0 folic acid 1 mg Tablet 2 mg PO DAILY RF: 0 sennosides [senna] 8.6 mg Tablet 8.6 mg PO DAILY RF: 0 fenofibrate nanocrystallized 48 mg Tablet 48 mg PO DAILY RF: 0 rosuvastatin 10 mg Tablet 20 mg PO HS RF: 0 magnesium hydroxide [Milk of Magnesia] 400 mg/5 mL Suspension 30 ml PO DAILY PRN (Reason: Constipation) RF: 0 polyethylene glycol 3350 [Miralax] 17 gram/dose Powder 17 g PO .DAILY @ LUNCH PRN (Reason: Constipation) RF: 0 acetaminophen [Tylenol] 325 mg Tablet 650 mg PO Q4H PRN (Reason: Pain) RF: 0 levetiracetam [Keppra] 250 mg Tablet 250 mg PO Q12H RF: 0 sodium chloride 0.9 % Solution 100 ml IV .CONT X 10HR/DAILY RF: 0 mycophenolate mofetil 250 mg Capsule 750 mg PO BID Qty: 30 RF: 0 atorvastatin 40 mg Tablet 40 mg PO HS RF: 0 sulfamethoxazole-trimethoprim 400-80 mg Tablet 1 tab PO BID RF: 0 dextrose [Insta-Glucose] 40 % Gel 1 ea PO ONCE PRN (Reason: Hypoglycemia) RF: 0 allopurinol 100 mg Tablet 100 mg PO DAILY RF: 0 xvyvlmcxbu-whpzqibeqvujx-rejn 50-325-40 mg Tablet 1 tab PO Q4H PRN (Reason: Headache) RF: 0 bisacodyl 10 mg Suppository 10 mg SD DAILY PRN (Reason: Constipation) RF: 0 Fleet Enema 19-7 gram/118 mL Enema 133 ml SD HS PRN (Reason: Constipation) RF: 0 baclofen 5 mg Tablet 5 mg PO TID PRN (Reason: Constipation) RF: 0 Referrals Referrals: [facility] POND [Primary Care Provider] -
[2021-04-19 12:59] LABS: INR 1.2 (0.9-1.1); Partial Thromboplastin Ratio 1.2; Partial Thromboplastin Time 31.9 Seconds (21.0-31.0); Prothrombin Time 11.9 Seconds (9.0-12.0)
--- NOTE | 2021-04-19 13:02 | XRay Report ---
XR chest 1V portable HISTORY: 41 years-old Male SEPSIS acute sepsis COMPARISON: Chest radiograph 03/30/2021 TECHNIQUE: Portable AP view of the chest FINDINGS: Cardiomediastinal and hilar silhouettes are within normal limits. No pneumothorax, pleural effusion, airspace consolidation or overt pulmonary edema. There is no acute fracture. IMPRESSION: No acute process. ACT 112: Negative or not required by law. The above report was generated using voice recognition software. It may contain grammatical, syntax o r spelling errors. Electronically signed by: Shankar Locke M.D. 04/19/2021 1:01 PM
[2021-04-19 13:19] LABS: Alanine Aminotransferase 118 U/L (12-78); Albumin Globulin Ratio 0.5 (0.9-2); Albumin Level 2.4 gm/dl (3.4-5.0); Alkaline Phosphatase 124 U/L (45-117); Aspartate Aminotransferase 73 U/L (15-37); BUN Creatinine Ratio 10.9 (10-20); Bilirubin,Total 0.9 mg/dl (0.2-1); Blood Urea Nitrogen 64 mg/dl (7-18); Calcium 9.2 mg/dl (8.5-10.1); Carbon Dioxide 20 mmol/L (21-32); Chloride 98 mmol/L (98-107); Creatinine Clr Calc Pharmacy 16.9 ml/min; Est GFR (African American) 12.6 ml/min; Est GFR (Non-African American) 10.9 ml/min; Globulin 5.3 gm/dl (2.5-4.0); Glucose 112 mg/dl (70-99); Magnesium 1.9 mg/dl (1.8-2.4); Sodium 131 mmol/L (136-145); Total Protein 7.7 gm/dl (6.4-8.2); Troponin I < 0.015 ng/ml (0-0.045)
[2021-04-19] MEDS ORDERED: cefTRIAXone SODIUM 1,000 MG/50 ML BAG IV STA (13:21)
--- NOTE | 2021-04-19 13:34 | CT Scan Report ---
CT OF THE HEAD WITHOUT CONTRAST CLINICAL HISTORY: Weakness. COMPARISON STUDY: Head CT March 31, 2021. CT DOSE: 614.27 mGy.cm TECHNIQUE: Helical axial images of the head were obtained without IV contrast. Automated exposure con trol was utilized for the study. A dose lowering technique was utilized adhering to the principles o f ALARA. FINDINGS: No acute intracranial, midline shift or mass effect is present. Ventricular system is unrem arkable. Basal cisterns are patent. There are no extra-axial collections. There has been expected armani lution of the subacute to chronic infarcts within the right external capsule and right parietal lobe since prior CT of March 31, 2021. Small foci of suspected hemorrhage on that exam have resolved. Th ere are no findings to suggest acute dural sinus thrombosis or acute territorial infarct. There are n o significant calvarial abnormalities. IMPRESSION: 1. No acute intracranial findings. 2. Expected evolution of the subacute to chronic infarcts within the right external capsule and right parietal lobe since prior CT. ACT 112: Negative or not required by law. Electronically signed by: Jaison Jolly M.D. 04/19/2021 1:33 PM
--- NOTE | 2021-04-19 13:39 | CT Scan Report ---
CT abd pelvis wo con CLINICAL HISTORY: fever . Weakness. Patient reports recent diagnosis of urinary tract infection. COMPARISON STUDY: 03/31/2021 CT DOSE: 646.27 mGy.cm TECHNIQUE: Standard CT of the Abdomen and Pelvis was performed without IV contrast. The patient did not receive oral contrast. A dose lowering technique was utilized adhering to the principles of SANDHYA Elias FINDINGS: Lung base: The lung bases are clear. Abdominal cavity: There is no evidence for abdominal mass, adenopathy or ascites. Liver: The liver is homogeneous in attenuation on these limited noncontrast images.. Spleen: The spleen is homogeneous in attenuation on these limited noncontrast images. Pancreas: The pancreas is homogeneous in attenuation on these limited noncontrast images. Gall Bladder: The gallbladder is well distended with no evidence for cholelithiasis, wall thickening or pericholecystic edema.. Adrenal glands: The adrenal glands are normal in size and attenuation on these limited noncontrast im ages. Kidneys: The kidneys are again atrophic bilaterally. On the left side, there is again a low-attenuati on lesion measuring approximately 3.1 cm with calcification in its wall. The findings are most charac teristic of a Bosniak type II cyst. However, there is increased attenuation of the fluid suggesting p ossible hemorrhage. Follow-up left renal ultrasound is recommended for further evaluation and confirm ation. No other evidence for mass lesion is seen. There is a transplanted right pelvic kidney. It is homogeneous in attenuation with no inflammatory ch anges or evidence of pyelonephritis. There is no evidence for renal calculus or hydronephrosis. Bowel: The bowel loops are normally placed within the abdomen and pelvis without evidence for dilatat ion or obstruction. There is no evidence for mass lesion. There are no inflammatory changes present. There is no evidence for free air. There is evidence for a normal appendix in the right lower quadran t. Bladder: There is no evidence for focal bladder wall thickening, calculus or diverticulum. However, t here is mild diffuse thickening of the bladder wall which can be seen in the presence of cystitis. : There is no evidence for pelvic mass or adenopathy. The patient is status post hysterectomy. Vasculature: There is no evidence for focal aneurysmal dilatation of the abdominal aorta. Osseous structures: There is no acute osseous pathology. 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 IMPRESSION: 1. No CT evidence for pyelonephritis of the [place] or transplanted kidney. 2. There is thickening of the bladder wall which can be seen with cystitis. 3. 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 However, increased attenuation is present and follow-up ultrasound is recommended for further evaluation confirmation. 4. No other evidence for acute intra-abdominal or pelvic abnormality. 5. Additional nonacute findings are delineated above. ACT 112: Negative or not required by law. Electronically signed by: Jason Canales M.D. 04/19/2021 1:37 PM
[2021-04-19 14:57] LABS: Appearance Urine Cloudy (Clear); Bilirubin Urine Negative (Negative); Blood Urine 1+ (Negative); Color Urine Yellow; Epithelial Cell Urine Auto 0-5 /lpf (0-5); Glucose Urine UA Negative (Negative); Ketones Urine Negative (Negative); Leukocyte Esterase Urine 1+ (Negative); Nitrite Urine Negative (Negative); Protein Urine 1+ (Negative); RBC Urine Automated 0-4 /hpf (0-4); Specific Gravity Urine 1.012 (1.000-1.030); Urobilinogen Urine Negative (Negative); WBC Urine Automated >30 /hpf (0-5)
[2021-04-19 15:36] LABS: Bacteria Urine Automated 1+ (Negative)
[2021-04-19 16:56] LABS: BUN Creatinine Ratio 11.5 (10-20); Calcium 8.5 mg/dl (8.5-10.1); Est GFR (African American) 14.5 ml/min; Est GFR (Non-African American) 12.5 ml/min
[2021-04-19] MEDS ORDERED: MAGNESIUM HYDROXIDE SUSP 30 ML UDC PO PRN (17:29)
[2021-04-19] MEDS ORDERED: bisacodyL 10 MG SUPP PR PRN (17:29)
[2021-04-19] MEDS ORDERED: BUTALBITAL/ACETAMIN/CAFFEINE TAB PO PRN (17:29)
[2021-04-19] MEDS ORDERED: GLUCOSE 40% GEL 15 GM TUBE PO PRN (17:29)
[2021-04-19] MEDS ORDERED: SOD PHOSPHATE/SOD BIPHOSPHATE ENEMA 132 ML BTL PR PRN (17:29)
[2021-04-19] MEDS ORDERED: TACROLIMUS 1 MG CAP PO SCH (17:30)
--- NOTE | 2021-04-19 17:34 | Ultrasound Report ---
US renal transplant RT HISTORY: 41 years-old Male eval for severe ABEBA acute on chronic kidney disease COMPARISON: CT abdomen and pelvis 04/19/2021 TECHNIQUE: Multiple real-time sonographic images of the kidneys were obtained assessing grayscale kylah earance and color flow FINDINGS: Right [place] kidney is atrophic not well visualized. Left [place] kidney is also atrophic and better s een on the comparison CT study of same day. The calcifications of the inferior pole left kidney are a lso better characterized on the CT study. Several complex cysts of the left kidney measure up to 2.7 x 2.4 x 3.4 cm. No definite solid renal mass lesions identified. No hydronephrosis. Transplanted kidney within the abdominal right lower quadrant measures 11.2 cm in length. The perinep hric edema seen on the CT study of same day is not well evaluated by ultrasound. No hydronephrosis. P atent right renal artery. IMPRESSION: 1. Unremarkable appearance of the transplanted kidney within the abdominal right lower quadrant. No h ydronephrosis. The perinephric and periureteral edema seen on the CT study of same day may represent an ascending infection. Correlate with urinalysis. 2. Atrophic [place] kidneys. 3. Complex hypoechoic lesions of the left kidney measuring up to 3.4 cm are suggestive of complex cys ts. A 6 month follow-up CT renal protocol study is recommended. ACT 112: Negative or not required by law. The above report was generated using voice recognition software. It may contain grammatical, syntax o r spelling errors. Electronically signed by: Shankar Locke M.D. 04/19/2021 5:32 PM
--- NOTE | 2021-04-19 19:03 | History & Physical Report ---
Date of Service April 19, 2021 Assessment & Plan (1) Sepsis: (2) Complicated urinary tract infection: Plan: This is a 39-year-old male from [facility] with PMH of recent ischemic CVA (R MCA) status [place] [facility] [place] HTN, hx renal transplant ([facility], 2018) on immunosuppression (CellCept, Tacrolimus), CRI (baseline creatinine 2s), possible seizure disorder, prediabetes who presents from [facility] with lethargy and urinary tract infection. Recently admitted to our service with severe sepsis secondary to Klebsiella UTI resuscitated with IV fluids and cefepime. Transitioned to cefdinir on discharge to [facility], which he completed on 04/10 Sent to ED for abnormal labwork and UTI, started on Bactrim course this morning (completed one dose) Afebrile, HR 111, WBC 15.8, procal 5.75, lactate wnl UA abnormal, urine culture pending CT abd/pelvis without CT evidence for pyelonephritis of the [place] or transplanted kidney. There is thickening of the bladder wall which can be seen with cystitis Received dose of rocephin in ED. Will continue abx coverage with cefepime and vanco ID consult placed in setting of recurrent UTIs this month, h/o renal transplant Received 2 L NSS in ED. Waited on additional fluids until lab work and discussion with nephro due to ABEBA on CKD (3) Acute renal failure superimposed on chronic kidney disease: (4) Renal transplant recipient: Plan: Cr elevated to 5.88 (baseline 2) in setting of dehydration, infection Discussed with Dr. Norton - hold mycophenolate, reduce tacrolimus dose to 1mg Q12H Tacro trough level ordered for AM Continue IV fluids, repeat BMP in AM (5) Sinus tachycardia: Plan: In setting of infection. Continue IV fluids, monitor on telemetry (6) History of stroke: (7) Subarachnoid hemorrhage: Plan: History of recent ischemic CVA (R MCA) status [place] [facility] followed by recent history of subarachnoid hemorrhage Started on seizure prophylaxis and Plavix is currently on hold per neurosurgery Following with [place] [facility] CT head today with no acute intracranial findings. Expected evolution of the subacute to chronic infarcts within the right external capsule and right parietal lobe since prior CT DVT Ppx: SCDs Code status: FULL PCP: SALTY Louie Dispo: Admitted to PCU Patient seen in collaboration with Dr. Dominguez. Please see addendum. History of Present Illness Chief Complaint: Lethargy, UTI Primary Care Provider: SALTY Louie This is a 39-year-old male from [facility] with PMH of recent ischemic CVA (R MCA) status post [place]PA[place] [facility] [place] HTN, hx renal transplant ([facility], 2018) on immunosuppression (CellCept, Tacrolimus), CRI (baseline creatinine 2s), possible seizure disorder, prediabetes who presents from [facility] with lethargy and urinary tract infection. Patient was recently admitted to our service with severe sepsis secondary to Klebsiella UTI resuscitated with IV fluids and cefepime. Transitioned to cefdinir on discharge to [facility], which he completed on 04/10. Also with recent history of subara chnoid hemorrhage-patient started on seizure prophylaxis and Plavix is currently on hold per neurosurgery. Per discussion with [facility] staff, patient noticeably more lethargic over the past 2 days. Repeat UA was done and patient started on Bactrim this morning. Due to abnormal lab work including and increased creatinine, patient was sent to ED for further evaluation. Patient with history of right renal transplant in 2018 on CellCept, tacrolimus. In ED, patient lethargic but arousable to verbal stimuli. Alert and oriented x3. Some diffuse abdominal discomfort. Harris catheter placed with urinary output. Denies any recent decrease in urinary output at rehab. No fever, chills, headache, chest pain, shortness of breath, nausea, vomiting, dysuria, diarrhea or constipation. Allergies Allergy/AdvReac Type Severity Reaction Status Date / Time albuterol AdvReac Shakiness Verified 04/19/21 14:16 Home Medications Medication Instructions Recorded Confirmed Type acetaminophen 325 mg tablet 650 mg PO Q4H PRN 03/30/21 04/19/21 History (Tylenol) aspirin 81 mg tablet,delayed 81 mg PO DAILY 03/30/21 04/19/21 History release fenofibrate nanocrystallized 48 mg 48 mg PO DAILY 03/30/21 04/19/21 History tablet folic acid 1 mg tablet 2 mg PO DAILY 03/30/21 04/19/21 History levetiracetam 250 mg tablet 250 mg PO Q12H 03/30/21 04/19/21 History (Keppra) magnesium hydroxide 400 mg/5 mL 30 ml PO DAILY PRN 03/30/21 04/19/21 History oral suspension (Milk of Magnesia) polyethylene glycol 3350 17 17 g PO .DAILY @ LUNCH PRN 03/30/21 04/19/21 History gram/dose oral powder (Miralax) sennosides 8.6 mg tablet (senna) 8.6 mg PO DAILY 03/30/21 04/19/21 History sodium chloride 0.9 % 100 ml IV .CONT X 10HR/DAILY 03/30/21 04/19/21 History tacrolimus 1 mg capsule, 2 mg PO Q12H 03/30/21 04/19/21 History immediate-release mycophenolate mofetil 250 mg 750 mg PO BID #30 cap 04/06/21 04/19/21 Rx capsule allopurinol 100 mg tablet 100 mg PO DAILY 04/19/21 04/19/21 History atorvastatin 40 mg tablet 40 mg PO HS 04/19/21 04/19/21 History baclofen 5 mg tablet 5 mg PO TID PRN 04/19/21 04/19/21 History bisacodyl 10 mg rectal suppository 10 mg PA DAILY PRN 04/19/21 04/19/21 History oyiexvhqki-hghhchbmmdntd-fxwfxtnz 1 tab PO Q4H PRN 04/19/21 04/19/21 History 50 mg-325 mg-40 mg tablet dextrose 40 % oral gel 1 ea PO ONCE PRN 04/19/21 04/19/21 History sodium phosphates 19 gram-7 133 ml PA HS PRN 04/19/21 04/19/21 History gram/118 mL enema (Fleet Enema) sulfamethoxazole 400 1 tab PO BID 04/19/21 04/19/21 History mg-trimethoprim 80 mg tablet Past Med/Surg History Medical History (Updated 04/19/21 @ 20:08 by Freida Mohan PA-C) DVT prophylaxis History of stroke Left hemiplegia Muscle spasm Severe sepsis Subarachnoid hemorrhage Syncope Surgical History Renal transplant recipient Social History Smoking Status: Never smoker Hx Alcohol Use: No Hx Substance Use: No Preferred Language: Stateless Communication Ability: Effective Motor Setter Required: No Beliefs That Will Affect Care: None marital status: Unknown Current Living Situation: Other Current Living Situation Comment: inmate [facility] Feels Safe at Home: Yes Assistive Devices: None Review of Systems Review of Systems: At least ten systems reviewed and negative except as noted in the HPI. Physical Exam Physical Exam: General Appearance: WD/WN, vitals as above, NAD, lethargic but arousable to verbal stimuli Head: normocephalic, atraumatic Eyes: normal inspection, PERRL, conjunctivae normal, anicteric sclerae ENT: external ear and nose normal, oropharynx normal Neck: normal visual inspection, trachea midline, no thyromegaly Respiratory: normal respiratory effort, lungs clear to auscultation, no wheeze, rales, rhonchi. No accessory muscle use Cardiovascular: tachycardic rate, regular rhythm, no murmur, normal peripheral pulses, no BLE edema. Vessels: no JVD Chest: normal inspection of chest Abdomen/GI: normal bowel sounds, soft, mild lower abdominal TTP, no guarding, no hepatosplenomegaly Extremities/Musculoskeletal: no cyanosis or clubbing, extremities motor strength 5/5 Neurologic: PERRL, EOMI, accommodation nl, L facial droop (chronic), CN's II-XI intact bilaterally and moves all extremities Psychiatric: A+Ox3, euthymic affect Skin: no rashes, normal color, warm/dry Results & Data Results & Data ([facility]) Vital Signs (Past 12 Hours) Vital Signs Temp Pulse Pulse Resp BP BP Pulse Ox 04/19/21 18:22 117 H 21 150/88 H 95 04/19/21 18:00 111 H 22 95 04/19/21 17:23 103 H 106 H 23 149/89 H 149/89 H 97 04/19/21 16:00 88 16 130/88 97 04/19/21 15:21 79 12 97 04/19/21 15:00 80 14 125/87 96 04/19/21 13:44 90 18 111/74 96 04/19/21 12:01 37.2 C 111 H 17 106/72 96 Laboratory Results Short CBC 04/19/21 Range/Units 12:16 WBC 15.80 H (4.8-10.8) K/uL Hgb 11.9 L (14.0-18.0) g/dL Hct 35.6 L (42-52) % Plt Count 321 (130-400) K/uL BMP 04/19/21 04/19/21 12:16 16:06 Sodium 131 L 133 L Potassium 4.0 4.0 Chloride 98 104 Carbon Dioxide 20 L 20 L BUN 64 H 60 H Creatinine 5.88 H* 5.23 H* D Glucose 112 H 106 H Calcium 9.2 8.5 Cardiac Enzymes 04/19/21 Range/Units 12:16 Troponin I < 0.015 (0-0.045) ng/ml Liver Function 04/19/21 Range/Units 12:16 Total Bilirubin 0.9 (0.2-1) mg/dl AST 73 H (15-37) U/L ALT 118 H (12-78) U/L Alkaline Phosphatase 124 H (45-117) U/L Albumin 2.4 L (3.4-5.0) gm/dl Urine 04/19/21 Range/Units Unknown Urine Color Yellow Urine Appearance Cloudy A (Clear) Urine pH 5.0 (4.5-7.5) Ur Specific [place] 1.012 (1.000-1.030) Urine Protein 1+ H (Negative) Urine Glucose (UA) Negative (Negative) Diagnostic Findings Abdomen/Pelvis CT 04/19/21 12:09 CT abd pelvis wo con CLINICAL HISTORY: fever . Weakness. Patient reports recent diagnosis of urinary tract infection. COMPARISON STUDY: 03/31/2021 CT DOSE: 646.27 mGy.cm TECHNIQUE: Standard CT of the Abdomen and Pelvis was performed without IV contrast. The patient did not receive oral contrast. A dose lowering technique was utilized adhering to the principles of ALARA. FINDINGS: Lung base: The lung bases are clear. Abdominal cavity: There is no evidence for abdominal mass, adenopathy or ascites. Liver: The liver is homogeneous in attenuation on these limited noncontrast images.. Spleen: The spleen is homogeneous in attenuation on these limited noncontrast images. Pancreas: The pancreas is homogeneous in attenuation on these limited noncontrast images. Gall Bladder: The gallbladder is well distended with no evidence for cholelithiasis, wall thickening or pericholecystic edema.. Adrenal glands: The adrenal glands are normal in size and attenuation on these limited noncontrast images. Kidneys: The kidneys are again atrophic bilaterally. On the left side, there is again a low-attenuation lesion measuring approximately 3.1 cm with calcification in its wall. The findings are most characteristic of a Bosniak type II cyst. However, there is increased attenuation of the fluid suggesting possible hemorrhage. Follow-up left renal ultrasound is recommended for further evaluation and confirmation. No other evidence for mass lesion is seen. There is a transplanted right pelvic kidney. It is homogeneous in attenuation with no inflammatory changes or evidence of pyelonephritis. There is no evidence for renal calculus or hydronephrosis. Bowel: The bowel loops are normally placed within the abdomen and pelvis without evidence for dilatation or obstruction. There is no evidence for mass lesion. There are no inflammatory changes present. There is no evidence for free air. There is evidence for a normal appendix in the right lower quadrant. Bladder: There is no evidence for focal bladder wall thickening, calculus or diverticulum. However, there is mild diffuse thickening of the bladder wall which can be seen in the presence of cystitis. : There is no evidence for pelvic mass or adenopathy. The patient is status post hysterectomy. Vasculature: There is no evidence for focal aneurysmal dilatation of the abdominal aorta. Osseous structures: There is no acute osseous pathology. 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 IMPRESSION: 1. No CT evidence for pyelonephritis of the [place] or transplanted kidney. 2. There is thickening of the bladder wall which can be seen with cystitis. 3. 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 However, increased attenuation is present and follow-up ultrasound is recommended for further evaluation confirmation. 4. No other evidence for acute intra-abdominal or pelvic abnormality. 5. Additional nonacute findings are delineated above. ACT 112: Negative or not required by law. Electronically signed by: Jason Canales M.D. 04/19/2021 1:37 PM Chest X-Ray 04/19/21 12:09 XR chest 1V portable HISTORY: 41 years-old Male SEPSIS acute sepsis COMPARISON: Chest radiograph 03/30/2021 TECHNIQUE: Portable AP view of the chest FINDINGS: Cardiomediastinal and hilar silhouettes are within normal limits. No pneumothorax, pleural effusion, airspace consolidation or overt pulmonary edema. There is no acute fracture. IMPRESSION: No acute process. ACT 112: Negative or not required by law. The above report was generated using voice recognition software. It may contain grammatical, syntax or spelling errors. Electronically signed by: Shankar Locke M.D. 04/19/2021 1:[address] 04/19/21 12:09 CT OF THE HEAD WITHOUT CONTRAST CLINICAL HISTORY: Weakness. COMPARISON STUDY: Head CT March 31, 2021. CT DOSE: 614.27 mGy.cm TECHNIQUE: Helical axial images of the head were obtained without IV contrast. Automated exposure control was utilized for the study. A dose lowering technique was utilized adhering to the principles of ALARA. FINDINGS: No acute intracranial, midline shift or mass effect is present. Ventricular system is unremarkable. Basal cisterns are patent. There are no extra-axial collections. 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 Small foci of suspected hemorrhage on that exam have resolved. There are no findings to suggest acute dural sinus thrombosis or acute territorial infarct. There are no significant calvarial abnormalities. IMPRESSION: 1. No acute intracranial findings. 2. Expected evolution of the subacute to chronic infarcts within the right external capsule and right parietal lobe since prior CT. ACT 112: Negative or not required by law. Electronically signed by: Jaison Jolly M.D. 04/19/2021 1:33 PM Renal Ultrasound 04/19/21 14:57 US renal transplant RT HISTORY: 41 years-old Male eval for severe ABEBA acute on chronic kidney disease COMPARISON: CT abdomen and pelvis 04/19/2021 TECHNIQUE: Multiple real-time sonographic images of the kidneys were obtained assessing grayscale appearance and color flow FINDINGS: Right [place] kidney is atrophic not well visualized. Left [place] kidney is also atrophic and better seen on the comparison CT study of same day. The calcifications of the inferior pole left kidney are also better characterized on the CT study. Several complex cysts of the left kidney measure up to 2.7 x 2.4 x 3.4 cm. No definite solid renal mass lesions identified. No hydronephrosis. Transplanted kidney within the abdominal right lower quadrant measures 11.2 cm in length. The perinephric edema seen on the CT study of same day is not well evaluated by ultrasound. No hydronephrosis. Patent right renal artery. IMPRESSION: 1. Unremarkable appearance of the transplanted kidney within the abdominal right lower quadrant. No hydronephrosis. The perinephric and periureteral edema seen on the CT study of same day may represent an ascending infection. Correlate with urinalysis. 2. Atrophic [place] kidneys. 3. Complex hypoechoic lesions of the left kidney measuring up to 3.4 cm are suggestive of complex cysts. A 6 month follow-up CT renal protocol study is recommended. ACT 112: Negative or not required by law. The above report was generated using voice recognition software. It may contain grammatical, syntax or spelling errors. Electronically signed by: Shankar Locke M.D. 04/19/2021 5:32 PM Supervising Physician Co-Signing Physician Notes Pt is a 39 y/o M with hx of Ischemic CVA (R MCA) s/p tpa and embolectomy, hx of R renal transplant on tacro and cellcept (2018), CKD (bl cr 2), Seizure, prediabetes admitted for urosepsis with ABEBA. Exam: Pt was lethargic Card: normal S1/S2, no murmur Lungs: CTA, no wheezing Abd: TTP of the RLQ, ND, Soft MSK: contracted L hand Pysch: AAOx3 but pt is lethargic A/P: Urosepsis: -s/p 2 L NS -broad spectrum abx: vancomycin and cefepime -UCx send - CT abd/pelvis: no pyelo but possible cystitis ABEBA on CKD and R renal transplant: -baseline Cr is 2 -pt is s/p 2L NS -Nephro consult: holding cellcept, tacro decreased to 1mg BID ----[facility] lab do not do Tacrolimus trough therefore a send out lab ordered ---- will get vanc trough before each dose -will continue the pt on fluids: NSS 125cc/hr -trend BMP -Renal US pending Agree with A/P by Freida Mohan PA-C
[2021-04-19] MEDS: BACLOFEN 10 MG TAB PO PRN (19:07)
[2021-04-19] MEDS ORDERED: MYCOPHENOLATE MOFETIL 250 MG CAP PO SCH (21:00)
[2021-04-19] MEDS ORDERED: VANCOMYCIN CONSULT ACTIVE PRN (21:36)
--- NOTE | 2021-04-19 22:09 | Pharmacy Report ---
Pharmacy Abx Dose Short Note - Date of Service April 19, 2021 - Assessment & Plan Assessment 41 year old M receiving vancomycin for treatment of UTI/sepsis Day # 1 of antimicrobial therapy. Plan Vancomycin * vancomycin 1000 mg IV x 1 which is expected to achieve peak of 20 mcg/mL. * Random tomorrow morning to assess patient specific pharmacokinetics Pharmacy will continue to follow and will adjust dose/frequency as necessary. Thank you.
[2021-04-19] MEDS: SODIUM CHLORIDE 0.9% 1000ML 1,000 ML IV SCH (22:17)
[2021-04-19] MEDS ORDERED: VANCOMYCIN HCL 1,000 MG in SODIUM CHLORIDE 0.9% 250 ML IV ONE (22:30)
[2021-04-19] MEDS: ATORVASTATIN 40 MG TAB PO SCH (22:35)
[2021-04-19] MEDS: CEFEPIME 2,000 MG in SYRINGE 0 ML IV SCH (22:35)
[2021-04-19] MEDS: levETIRAcetam 250 MG TAB PO SCH (22:36)
[2021-04-19] MEDS: ACETAMINOPHEN 325 MG TAB PO PRN (22:40)
[2021-04-19] MEDS: TACROLIMUS 1 MG CAP PO SCH (23:32)
[2021-04-20] MEDS: BACLOFEN 10 MG TAB PO PRN (04:03)
[2021-04-20] MEDS: SODIUM CHLORIDE 0.9% 1000ML 1,000 ML IV SCH ×2 (06:00→14:20)
[2021-04-20 07:45] LABS: Hematocrit (blood only) 34.4 % (42-52); Hemoglobin 11.5 g/dL (14.0-18.0); Mean Corpuscular Hemoglobin 30.5 pg (25-34); Mean Corpuscular Hgb Conc 33.4 g/dL (32-36); Mean Corpuscular Volume 91.2 fL (80-100); Mean Platelet Volume 8.7 fL (7.4-10.4); Platelet Count 313 K/uL (130-400); RDW Coefficient of Variation 13.5 % (11.5-14.5); RDW Standard Deviation 44.9 fL (36.4-46.3); Red Blood Count 3.77 M/uL (4.7-6.1); White Blood Count 13.35 K/uL (4.8-10.8)
[2021-04-20 08:21] LABS: Albumin Globulin Ratio 0.4 (0.9-2); Albumin Level 2.1 gm/dl (3.4-5.0); BUN Creatinine Ratio 11.1 (10-20); Bilirubin,Total 0.8 mg/dl (0.2-1); Calcium 9.4 mg/dl (8.5-10.1); Creatinine Clr Calc Pharmacy 17.1 ml/min; Est GFR (African American) 12.8 ml/min; Globulin 4.9 gm/dl (2.5-4.0); Potassium 4.1 mmol/L (3.5-5.1)
[2021-04-20] MEDS: FENOFIBRATE NANOCRYSTALLIZED 48 MG TABLET PO SCH (08:37)
[2021-04-20] MEDS: SENNA 8.6 MG TAB PO SCH (08:37)
[2021-04-20] MEDS: ASPIRIN 81 MG ECTAB PO SCH (08:37)
[2021-04-20] MEDS: allopurinoL 100 MG TAB PO SCH (08:38)
[2021-04-20] MEDS: levETIRAcetam 250 MG TAB PO SCH ×2 (08:38→19:56)
[2021-04-20] MEDS: FOLIC ACID 1 MG TAB PO SCH (08:38)
[2021-04-20] MEDS: TACROLIMUS 1 MG CAP PO SCH ×2 (08:38→19:56)
--- NOTE | 2021-04-20 16:53 | Hospitalist Progress Note ---
Date of Service April 20, 2021 Assessment & Plan (1) Sepsis: (2) Complicated urinary tract infection: Plan: per admitting service notes: This is a 39-year-old male from [facility] with PMH of recent ischemic CVA (R MCA) [place] [facility] [place] HTN, hx renal transplant ([facility], 2018) on immunosuppression (CellCept, Tacrolimus), CRI (baseline creatinine 2s), possible seizure disorder, prediabetes who presents from [facility] with lethargy and urinary tract infection. Recently admitted to our service with severe sepsis secondary to Klebsiella UTI resuscitated with IV fluids and cefepime. Transitioned to cefdinir on discharge to [facility], which he completed on 04/10 Sent to ED for abnormal labwork and UTI, started on Bactrim course this morning (completed one dose) Afebrile, HR 111, WBC 15.8, procal 5.75, lactate wnl UA abnormal, urine culture pending CT abd/pelvis without CT evidence for pyelonephritis of the [place] or transplanted kidney. There is thickening of the bladder wall which can be seen with cystitis Received dose of rocephin in ED. Will continue abx coverage with cefepime and vanco ID consult placed in setting of recurrent UTIs this month, h/o renal transplant Received 2 L NSS in ED. Waited on additional fluids until lab work and discussion with nephro due to ABEBA on CKD 04/20 Urine culture: gram negative bacilli Blood cultures: pending Cefepime 2 g IV (3) Acute renal failure superimposed on chronic kidney disease: (4) Renal transplant recipient: Plan: per admitting service notes: Cr elevated to 5.88 (baseline 2) in setting of dehydration, infection Discussed with Dr. Norton - hold mycophenolate, reduce tacrolimus dose to 1mg Q12H Tacro trough level ordered for AM Continue IV fluids, repeat BMP in AM 04/20: crea still 5 Bicarb drip started (5) Sinus tachycardia: Plan: In setting of infection. Continue IV fluids, monitor on telemetry (6) History of stroke: (7) Subarachnoid hemorrhage: Plan: per admitting service notes: History of recent ischemic CVA (R MCA) status [place] [facility] [place] followed by recent history of subarachnoid hemorrhage Started on seizure prophylaxis and Plavix is currently on hold per neurosurgery Following with [facility] neurosurgery CT head today with no acute intracranial findings. Expected evolution of the subacute to chronic infarcts within the right external capsule and right parietal lobe since prior CT DVT Ppx: SCDs Code status: FULL PCP: SALTY Louie Dispo: Admitted to PCU Admission and Anticipated Discharge Date Admission Date: April 19, 2021 Subjective ff up for pyelonephritis, acute renal failure, renal transplant patient seen resting in bed appears tired states he feels weak no abdominal pain, flank pain, back pain no nausea/vomiting (+) fever no chest pain, dyspnea, palpitations, dizziness no other symptoms Review of Systems Review of Systems: all noted and negative except for above Physical Exam Physical Exam: General- oriented x 3, not in distress, speaks in sentences with no effort or accessory muscle use Eyes- anicteric Neck- no JVD Lungs- clear BS BL no rales/wheezing Heart- normal rate, regular rhythm; no murmurs Abdomen- normal bowel sounds, nondistended, soft, nontender Extremities- no pretibial edema, no calf tenderness Neuro- alert, oriented x 3; no gross focal neurologic deficits Skin- warm & dry Results & Data Results & Data ([facility]) Vital Signs (Past 12 Hours) Vital Signs Temp Pulse Resp BP Pulse Ox 04/20/21 11:53 36.5 C 96 H 18 120/74 95 04/20/21 08:00 36.9 C 108 H 20 147/93 H 97 all noted and reviewed including below
--- NOTE | 2021-04-20 16:59 | Nephrology Consultation ---
Date of Consultation April 20, 2021 Assessment & Plan (1) Acute renal failure superimposed on chronic kidney disease: Stage 3 nonoliguric ABEBA on CKD 3 in a renal txplt pt with recurrent sepsis and recurrent complex UTI. presumptive ATN from urosepsis, though prerenal process and excess FK dosing on differential; possible rejection as well on differential, though less likely. baseline creatinine 1.5-2; d/c'd near upper limit of baseline creatinine on 04/06; he had progressive worsening of creatinine almost immediately after arrival back to rehab : was 2.8 on 04/07, day after d/c; then slow uptrend to 3.7 on 04/16 and 5/9 on next check 04/20. chemistries have been mostly OK though today w/ trend to NAGMA; volume status low/acceptable. improved initially w/ hydration but worse again this am > ? from bactrim, now on hold? -recheck trough level TOMORROW tacro (order in) -daily bmp -IS as below -dose vanco by level - do not give next dose until after level posts -w/ slight sob and HTN this pm adn chemistries, will lower IVF rate and change to D5 w/ 75 mEq /L at 80 mL hourly -no indication for urgent dialysis currently but will need close monitoring (2) Renal transplant recipient: as OP on MMF 750 mg bid and FK 2 mg bid -MMF held at admission -FK lowered empirically to 1 mg bid pending level >>he may need renal biopsy / evaluation for rejection if no improvement with conservative care; note that obtaining FK levels here can be quite delayed (3) Complicated urinary tract infection: symptoms include dysuria, malaise, fatigue, pain over allograft; second episode in less than one month -on cefepime and vanco - await ID recs (4) Severe sepsis: inf dzs consult pending temp elevation to 37.9 noted cont supportive care (5) Complex renal cyst: -needs f/u imaging in September 2020 -- L kidney w/ complex cyst History of Present Illness Reason for Consultation: ABEBA on CKD, renal transplant patient Requesting Physician: Dr Dominguez Attending Physician: Abhijit Guardado MD History of Present Illness 41 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 PMH includes ischemic R MCA stroke 02/2021 s/p TPA/embolectomy [facility] [place] and w/ ongoing L sided weakness, renal transplant 2018 at [facility] on cellcept and tacrolimus, CKD 3 w/ baseline creatinine 1.5-2, possible seizure disorder. He was recently admitted here 03/30-04/06 for severe sepsis from Klebsiella UTI managed w/ IV fluids and cefepime; he had ABEBA that admission with peak crea tinine 3.1 on 03/30 and to 2.1 by hospital discharge; d/c to [facility] on cefdinir completed 04/10. His FK and mycophenolate customary doses were resumed 03/31 and 04/02 respectively after being held early in the admission. Noted at rehab to have abnormal labwork and UA concerning for infection > cxs from 04/19 in [employer] system have grown >100K colonies K pneumoniae resistant to macrobid otherwise sensitive. his creatinine had been running at about 3 04/13-04/16; it increased to 5.9 yesterday. His tacrolimus level on 04/16 was 9.5 > unable to establish whether this is a trough or not. The pt endorses 2 days of watery diarrhea prior to admission w/ 2-8 BM daily and currently improved. He states he feels slightly short of breath currently w/o cough. He states he had 48 hrs of dysuria prior to admission and ongoing and has been noticing some R groin pain though no tenderness directly over RLQ allograft. Denies edema or cough or gross hematuria. Allergies Allergy/AdvReac Type Severity Reaction Status Date / Time albuterol AdvReac Shakiness Verified 04/19/21 14:16 Home Medications Medication Instructions Recorded Confirmed Type acetaminophen 325 mg tablet 650 mg PO Q4H PRN 03/30/21 04/19/21 History (Tylenol) aspirin 81 mg tablet,delayed 81 mg PO DAILY 03/30/21 04/19/21 History release fenofibrate nanocrystallized 48 mg 48 mg PO DAILY 03/30/21 04/19/21 History tablet folic acid 1 mg tablet 2 mg PO DAILY 03/30/21 04/19/21 History levetiracetam 250 mg tablet 250 mg PO Q12H 03/30/21 04/19/21 History (Keppra) magnesium hydroxide 400 mg/5 mL 30 ml PO DAILY PRN 03/30/21 04/19/21 History oral suspension (Milk of Magnesia) polyethylene glycol 3350 17 17 g PO .DAILY @ LUNCH PRN 03/30/21 04/19/21 History gram/dose oral powder (Miralax) sennosides 8.6 mg tablet (senna) 8.6 mg PO DAILY 03/30/21 04/19/21 History sodium chloride 0.9 % 100 ml IV .CONT X 10HR/DAILY 03/30/21 04/19/21 History tacrolimus 1 mg capsule, 2 mg PO Q12H 03/30/21 04/19/21 History immediate-release mycophenolate mofetil 250 mg 750 mg PO BID #30 cap 04/06/21 04/19/21 Rx capsule allopurinol 100 mg tablet 100 mg PO DAILY 04/19/21 04/19/21 History atorvastatin 40 mg tablet 40 mg PO HS 04/19/21 04/19/21 History baclofen 5 mg tablet 5 mg PO TID PRN 04/19/21 04/19/21 History bisacodyl 10 mg rectal suppository 10 mg NE DAILY PRN 04/19/21 04/19/21 History bkprmlmjgk-vomocnngbtkdw-byekwjaw 1 tab PO Q4H PRN 04/19/21 04/19/21 History 50 mg-325 mg-40 mg tablet dextrose 40 % oral gel 1 ea PO ONCE PRN 04/19/21 04/19/21 History sodium phosphates 19 gram-7 133 ml NE HS PRN 04/19/21 04/19/21 History gram/118 mL enema (Fleet Enema) sulfamethoxazole 400 1 tab PO BID 04/19/21 04/19/21 History mg-trimethoprim 80 mg tablet Patient History Medical History (Updated 04/20/21 @ 17:36 by Terese Norton MD, PhD) Complex renal cyst L kidney 3.4 CM in 03/2021 DVT prophylaxis History of stroke Left hemiplegia Muscle spasm Renal transplant recipient Severe sepsis Subarachnoid hemorrhage Syncope Social History Smoking Status: Never smoker Hx Alcohol Use: No Hx Substance Use: No Preferred Language: Ugandan Communication Ability: Effective Upkeep Worker Required: No Beliefs That Will Affect Care: None marital status: Unknown Current Living Situation: Other Current Living Situation Comment: [facility] Feels Safe at Home: Yes Assistive Devices: Wheelchair Review of Systems Review of Systems: All systems reviewed & are unremarkable except as noted in HPI & below Physical Exam Constitutional: well developed, well nourished and cooperative; no acute d istress and no altered mental status Eyes: EOM intact bilaterally ENMT: Ears: no external ear abnormality Nose: no external nose abnormality Mouth: + dry oral mucous membranes Neck: no nuchal rigidity Respiratory: normal respiratory effort Auscultation: + diminished lung christiano nds Cardiovascular: Rate/Rhythm: regular rhythm and + tachycardic Extremities: no edema Gastrointestinal (Abdomen): Inspection/Auscultation: normal bowel sounds Percussion/Palpation: abdomen soft; abdomen nontender RLQ allograft NT and w/o bruit; has mild TTP R groin but no focal mass or lesion Musculoskeletal: Extremities: + abnormal strength (L hemiplegia) Skin: no rashes, warm and dry Neurologic: mcclendon, fluent speech, no tremor Psychiatric: Orientation: oriented x 3 and cooperative Speech: + abnormal rate/rhythm/volume of speech (slightly slowed) Insight: good insight Judgement: good judgement Results & Data ([facility]) Vital Signs (Past 12 Hours) Vital Signs Temp Pulse Resp BP Pulse Ox 04/20/21 11:53 36.5 C 96 H 18 120/74 95 04/20/21 08:00 36.9 C 108 H 20 147/93 H 97 Laboratory Results 04/20/21 06:52 04/20/21 06:52 UA reviewed; urine cx w/ GNR Blood cxs x 2 admission NGTD [facility] urine cx 04/19 as per HPI FK level pending from 2345 04/19 (dosed 04/19 at 2330) Diagnostic Findings CT head 1. No acute intracranial findings. 2. Expected evolution of the subacute to chronic infarcts within the right external capsule and right parietal lobe since prior CT. CXR > no acute process CT abd/pelvis non con Lung base: The lung bases are clear. Abdominal cavity: There is no evidence for abdominal mass, adenopathy or ascites. Liver: The liver is homogeneous in attenuation on these limited noncontrast images.. Spleen: The spleen is homogeneous in attenuation on these limited noncontrast images. Pancreas: The pancreas is homogeneous in attenuation on these limited noncontrast images. Gall Bladder: The gallbladder is well distended with no evidence for cholelithiasis, wall thickening or pericholecystic edema.. Adrenal glands: The adrenal glands are normal in size and attenuation on these limited noncontrast images. Kidneys: The kidneys are again atrophic bilaterally. On the left side, there is again a low-attenuation lesion measuring approximately 3.1 cm with calcification in its wall. The findings are most characteristic of a Bosniak type II cyst. However, there is increased attenuation of the fluid suggesting possible hemorrhage. Follow-up left renal ultrasound is recommended for further evaluation and confirmation. No other evidence for mass lesion is seen. There is a transplanted right pelvic kidney. It is homogeneous in attenuation w ith no inflammatory changes or evidence of pyelonephritis. There is no evidence for renal calculus or hydronephrosis. Bowel: The bowel loops are normally placed within the abdomen and pelvis without evidence for dilatation or obstruction. There is no evidence for mass lesion. There are no inflammatory changes present. There is no evidence for free air. There is evidence for a normal appendix in the right lower quadrant. Bladder: There is no evidence for focal bladder wall thickening, calculus or diverticulum. However, there is mild diffuse thickening of the bladder wall which can be seen in the presence of cystitis. : There is no evidence for pelvic mass or adenopathy. The patient is status post hysterectomy. Vasculature: There is no evidence for focal aneurysmal dilatation of the abdomi nal aorta. Osseous structures: There is no acute osseous pathology. 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 IMPRESSION: 1. No CT evidence for pyelonephritis of the [place] or transplanted kidney. 2. There is thickening of the bladder wall which can be seen with cystitis. 3. 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 However, increased attenuation is present and follow-up ultrasound is recommended for further evaluation confirmation. 4. No other evidence for acute intra-abdominal or pelvic abnormality. 5. Additional nonacute findings are delineated above.
[2021-04-20] MEDS: SODIUM BICARBONATE 8.4% 75 MEQ in DEXTROSE 5% 1,000 ML IV SCH (19:54)
[2021-04-20] MEDS: ACETAMINOPHEN 325 MG TAB PO PRN (19:56)
[2021-04-20] MEDS: ATORVASTATIN 40 MG TAB PO SCH (19:56)
--- NOTE | 2021-04-20 22:40 | Electrocardiogram Report ---
Test Reason : Blood Pressure : / mmHG Vent. Rate : 111 BPM Atrial Rate : 111 BPM P-R Int : 142 ms QRS Dur : 086 ms QT Int : 342 ms P-R-T Axes : 036 048 025 degrees QTc Int : 465 ms Poor data quality, interpretation may be adversely affected Sinus tachycardia Otherwise normal ECG When compared with ECG of 30-MAR-2021 16:44, No significant change was found Confirmed by Rik Martin ([id number]) on 04/20/2021 10:39:44 PM Referred By: Liban POND Confirmed By:Rik Martin
[2021-04-21] MEDS: CEFEPIME 2,000 MG in SYRINGE 0 ML IV SCH ×2 (00:05→23:30)
[2021-04-21] MEDS: allopurinoL 100 MG TAB PO SCH (07:49)
[2021-04-21] MEDS: levETIRAcetam 250 MG TAB PO SCH ×2 (07:50→21:33)
[2021-04-21] MEDS: ASPIRIN 81 MG ECTAB PO SCH (07:50)
[2021-04-21] MEDS: FOLIC ACID 1 MG TAB PO SCH (07:50)
[2021-04-21] MEDS: TACROLIMUS 1 MG CAP PO SCH ×2 (07:50→21:33)
[2021-04-21] MEDS: SENNA 8.6 MG TAB PO SCH (07:51)
[2021-04-21] MEDS: FENOFIBRATE NANOCRYSTALLIZED 48 MG TABLET PO SCH (07:51)
[2021-04-21 08:37] LABS: Basophils # (auto) 0.02 K/uL (0-0.2); Basophils % (auto) 0.2 %; Eosinophils # (auto) 0.07 K/uL (0-0.5); Eosinophils % (auto) 0.7 %; Hematocrit (blood only) 31.2 % (42-52); Hemoglobin 10.3 g/dL (14.0-18.0); Immature Granulocytes # (auto) 0.03 K/uL (0.00-0.02); Immature Granulocytes % (auto) 0.3 %; Lymphocytes # (auto) 0.81 K/uL (1.2-3.4); Lymphocytes % (auto) 7.6 %; Mean Corpuscular Hemoglobin 29.8 pg (25-34); Mean Corpuscular Volume 90.2 fL (80-100); Mean Platelet Volume 8.6 fL (7.4-10.4); Monocytes # (auto) 1.04 K/uL (0.11-0.59); Monocytes % (auto) 9.7 %; Neutrophils # (auto) 8.73 K/uL (1.4-6.5); Neutrophils % (auto) 81.5 %; Platelet Count 284 K/uL (130-400); RDW Coefficient of Variation 13.5 % (11.5-14.5); RDW Standard Deviation 45.2 fL (36.4-46.3); Red Blood Count 3.46 M/uL (4.7-6.1)
[2021-04-21] MEDS: SODIUM BICARBONATE 8.4% 75 MEQ in DEXTROSE 5% 1,000 ML IV SCH (08:59)
--- NOTE | 2021-04-21 09:00 | Nephrology Progress Note ---
Date of Service April 21, 2021 Assessment & Plan (1) Acute renal failure superimposed on chronic kidney disease: Plan: Stage 3 nonoliguric ABEBA on CKD 3 in a renal txplt pt with recurrent sepsis and recurrent complex UTI. presumptive ATN from urosepsis, though prerenal process and excessively high FK dosing on differential; possible rejection as well on differential, though less likely. baseline creatinine 1.5-2; d/c'd near upper limit of baseline creatinine on 04/06; he had progressive worsening of creatinine almost immediately after arrival back to rehab : was 2.8 on 04/07, day after d/c; then slow uptrend to 3.7 on 04/16 and 5/9 on next check 04/20. F K levels had been in 9-10 range as OP but cannot tell if these were troughs or not. chemistries have been mostly OK though today w/ trend to NAGMA and AGMA; volume status low/acceptable. creat improved initially w/ hydration but worse again this am to admission levels -recheck trough level 04/21 tacro (pending) -daily bmp -IS as below -dose vanco by level - do not give next dose until after level posts -w/ slight sob and HTN yesterday afternoon, lowered IVF and changed to D5 w/ 75 mEq /L at 80 mL hourly -no indication for urgent dialysis or transfer currently but will need close monitoring (2) Renal transplant recipient: Plan: as OP on MMF 750 mg bid and FK 2 mg bid -MMF held at admission -FK lowered empirically to 1 mg bid pending level >>he may need transfer for renal biopsy / evaluation for rejection if no improv ement with conservative care; note that obtaining FK levels here can be quite delayed (3) Complicated urinary tract infection: Plan: symptoms include dysuria, malaise, fatigue, pain over allograft; second episode in less than one month -on cefepime and vanco - await ID recs (4) Severe sepsis: Plan: inf dzs consult pending >> ordered 04/19 temp elevation to 37.9 noted cont supportive care (5) Complex renal cyst: Plan: -needs f/u imaging in September 2020 -- L kidney w/ complex cyst Admission and Anticipated Discharge Date Admission Date: April 19, 2021 Subjective eating less today d/t fullness in abdomen; denies n/v, sob, edema. Review of Systems Review of Systems: All systems reviewed & are unremarkable except as noted in Subjective Physical Exam Constitutional: well developed, well nourished and cooperative; no acute distress and no altered mental status Eyes: EOM intact bilaterally ENMT: Ears: no external ear abnormality Nose: no external nose abnormality Mouth: + dry oral mucous membranes Neck: no nuchal rigidity Respiratory: normal respiratory effort Auscultation: + diminished lung sounds Cardiovascular: Rate/Rhythm: regular rhythm and + tachycardic Extremities: no edema Gastrointestinal (Abdomen): Inspection/Auscultation: normal bowel sounds Percussion/Palpation: abdomen soft; abdomen nontender Musculoskeletal: Extremities: + abnormal strength (L hemiplegia) Skin: no rashes, warm and dry Psychiatric: Orientation: oriented x 3 and cooperative Speech: + abnormal rate/rhythm/volume of speech (slightly slowed) Insight: good insight Judgement: good judgement Results & Data ([facility]) Vital Signs (Past 12 Hours) Vital Signs Temp Pulse Pulse Resp BP Pulse Ox 04/21/21 07:04 36.4 C L 93 H 18 120/80 95 04/21/21 03:47 36.8 C 109 H 18 127/80 99 04/21/21 00:00 36.8 C 89 18 145/82 H 97 04/20/21 23:59 94 H Laboratory Results 04/21/21 07:17 04/21/21 07:17
[2021-04-21 09:16] LABS: Albumin Globulin Ratio 0.4 (0.9-2); Albumin Level 1.8 gm/dl (3.4-5.0); BUN Creatinine Ratio 10.3 (10-20); Bilirubin,Total 0.6 mg/dl (0.2-1); Calcium 8.7 mg/dl (8.5-10.1); Creatinine Clr Calc Pharmacy 17.4 ml/min; Est GFR (Non-African American) 11.2 ml/min; Globulin 4.9 gm/dl (2.5-4.0); Magnesium 1.8 mg/dl (1.8-2.4); Phosphorus 3.3 mg/dl (2.5-4.9); Potassium 3.6 mmol/L (3.5-5.1); Total Protein 6.7 gm/dl (6.4-8.2)
[2021-04-21] MEDS: ACETAMINOPHEN 325 MG TAB PO PRN (12:09)
[2021-04-21] MEDS: BACLOFEN 10 MG TAB PO PRN (12:09)
--- NOTE | 2021-04-21 19:54 | Hospitalist Progress Note ---
Date of Service April 21, 2021 delayed entry date of service noted above Assessment & Plan (1) Sepsis: (2) Complicated urinary tract infection: Plan: per admitting service notes: This is a 39-year-old male from [facility] with PMH of recent ischemic CVA (R MCA) status [place] [facility] [place] HTN, hx renal transplant ([facility], 2018) on immunosuppression (CellCept, Tacrolimus), CRI (baseline creatinine 2s), possible seizure disorder, prediabetes who presents from [facility] with lethargy and urinary tract infection. Recently admitted to our service with severe sepsis secondary to Klebsiella UTI resuscitated with IV fluids and cefepime. Transitioned to cefdinir on discharge to [facility], which he completed on 04/10 Sent to ED for abnormal labwork and UTI, started on Bactrim course this morning (completed one dose) Afebrile, HR 111, WBC 15.8, procal 5.75, lactate wnl UA abnormal, urine culture pending CT abd/pelvis without CT evidence for pyelonephritis of the [place] or transplanted kidney. There is thickening of the bladder wall which can be seen with cystitis Received dose of rocephin in ED. Will continue abx coverage with cefepime and vanco ID consult placed in setting of recurrent UTIs this month, h/o renal transplant Received 2 L NSS in ED. Waited on additional fluids until lab work and discussion with nephro due to ABEBA on CKD 04/21 Urine culture: gram negative bacilli Blood cultures: negative so far Cefepime 2 g IV (3) Acute renal failure superimposed on chronic kidney disease: (4) Renal transplant recipient: Plan: per admitting service notes: Cr elevated to 5.88 (baseline 2) in setting of dehydration, infection Discussed with Dr. Norton - hold mycophenolate, reduce tacrolimus dose to 1mg Q12H Tacro trough level ordered for AM Continue IV fluids, repeat BMP in AM 04/21 crea still 5 Bicarb drip nephro on board tacrolimus lowered dose (5) Sinus tachycardia: Plan: In setting of infection. Continue IV fluids, monitor on telemetry (6) History of stroke: (7) Subarachnoid hemorrhage: Plan: per admitting service notes: History of recent ischemic CVA (R MCA) status post [place] [facility] [place] followed by recent history of subarachnoid hemorrhage Started on seizure prophylaxis and Plavix is currently on hold per neurosurgery Following with [place] neurosurgery CT head today with no acute intracranial findings. Expected evolution of the subacute to chronic infarcts within the right external capsule and right parietal lobe since prior CT DVT Ppx: SCDs Code status: FULL PCP: SALTY Louie Dispo: Admitted to PCU Admission and Anticipated Discharge Date Admission Date: April 19, 2021 Subjective ff up for acute renal failure, etc seen resting in bed, comfortable watching tv states he feels tired but otherwise feels ok no n/v, abdominal pain, fever/chills no other symptoms Review of Systems Review of Systems: all noted and negative except for above Physical Exam Physical Exam: General- oriented x 3, not in distress, speaks in sentences with no effort or accessory muscle use Eyes- anicteric Neck- no JVD Lungs- clear BS bilaterally no rales/wheezing Heart- normal rate, regular rhythm; no murmurs Abdomen- normal bowel sounds, nondistended, soft, nontender Extremities- no pretibial edema, no calf tenderness martell cath- yellow urine Neuro- alert, oriented x 3; no gross focal neurologic deficits Skin- warm & dry Results & Data Results & Data ([facility]) Vital Signs (Past 12 Hours) Vital Signs Temp Pulse Pulse Resp BP Pulse Ox 04/21/21 16:04 36.5 C 79 16 138/85 97 04/21/21 16:00 80 04/21/21 12:00 37.6 C H 92 H 18 101/78 97 all noted and reviewed including below
[2021-04-21] MEDS: ATORVASTATIN 40 MG TAB PO SCH (21:33)
[2021-04-22] MEDS: SODIUM BICARBONATE 8.4% 75 MEQ in DEXTROSE 5% 1,000 ML IV SCH (00:20)
[2021-04-22 06:07] LABS: Basophils # (auto) 0.02 K/uL (0-0.2); Basophils % (auto) 0.2 %; Eosinophils # (auto) 0.15 K/uL (0-0.5); Eosinophils % (auto) 1.7 %; Hematocrit (blood only) 30.2 % (42-52); Immature Granulocytes # (auto) 0.05 K/uL (0.00-0.02); Immature Granulocytes % (auto) 0.6 %; Lymphocytes # (auto) 0.75 K/uL (1.2-3.4); Lymphocytes % (auto) 8.5 %; Mean Corpuscular Hemoglobin 29.6 pg (25-34); Mean Corpuscular Hgb Conc 33.1 g/dL (32-36); Mean Corpuscular Volume 89.3 fL (80-100); Mean Platelet Volume 8.5 fL (7.4-10.4); Monocytes # (auto) 1.13 K/uL (0.11-0.59); Monocytes % (auto) 12.7 %; Neutrophils # (auto) 6.77 K/uL (1.4-6.5); Neutrophils % (auto) 76.3 %; Platelet Count 291 K/uL (130-400); RDW Coefficient of Variation 13.6 % (11.5-14.5); RDW Standard Deviation 44.9 fL (36.4-46.3); Red Blood Count 3.38 M/uL (4.7-6.1); White Blood Count 8.87 K/uL (4.8-10.8)
[2021-04-22 06:56] LABS: Albumin Globulin Ratio 0.4 (0.9-2); Albumin Level 1.8 gm/dl (3.4-5.0); BUN Creatinine Ratio 9.8 (10-20); Bilirubin,Total 0.6 mg/dl (0.2-1); Calcium 9.5 mg/dl (8.5-10.1); Creatinine Clr Calc Pharmacy 18.5 ml/min; Est GFR (African American) 14.1 ml/min; Est GFR (Non-African American) 12.1 ml/min; Globulin 5.1 gm/dl (2.5-4.0); Magnesium 1.7 mg/dl (1.8-2.4); Phosphorus 3.6 mg/dl (2.5-4.9); Potassium 3.5 mmol/L (3.5-5.1); Total Protein 6.9 gm/dl (6.4-8.2)
[2021-04-22] MEDS: FOLIC ACID 1 MG TAB PO SCH (07:46)
[2021-04-22] MEDS: FENOFIBRATE NANOCRYSTALLIZED 48 MG TABLET PO SCH (07:46)
[2021-04-22] MEDS: allopurinoL 100 MG TAB PO SCH (07:46)
[2021-04-22] MEDS: levETIRAcetam 250 MG TAB PO SCH ×2 (07:46→20:25)
[2021-04-22] MEDS: ASPIRIN 81 MG ECTAB PO SCH (07:46)
[2021-04-22] MEDS: SENNA 8.6 MG TAB PO SCH (07:47)
[2021-04-22] MEDS: ACETAMINOPHEN 325 MG TAB PO PRN (07:47)
[2021-04-22] MEDS: TACROLIMUS 1 MG CAP PO SCH (07:47)
--- NOTE | 2021-04-22 10:42 | Nephrology Progress Note ---
Date of Service April 22, 2021 Assessment & Plan (1) Acute renal failure superimposed on chronic kidney disease: Plan: Stage 3 nonoliguric ABEBA on CKD 3 in a renal txplt pt with recurrent sepsis and recurrent complex UTI in setting of 02/2021 stroke s/p embolectomy/TPA. presumptive ATN from urosepsis, though prerenal process and CNI toxicity on differential; possible rejection, viral infection, atheroembolic event, CNI as well on differential, though less likely. baseline creatinine 1.5-2; d/c'd near upper limit of baseline creatinine on 04/06; he had progressive worsening of creatinine almost immediately after arrival back to rehab : was 2.8 on 04/07, day after d/c; then slow uptrend to 3.7 on 04/16 and 5.9 on next check 04/20. FK levels had been in 9-10 range as OP but cannot tell if these were troughs or not. chemistries have been mostly OK though today w/ trend to NAGMA and AGMA; volume status low/acceptable. creat improved initially w/ hydration but worse again this am to admission levels -recheck trough level 04/21 tacro (pending, as is 04/19 tacro level) -daily bmp -IS as below -dose vanco by level - do not give next dose until after level posts -changed D5 w/ 75 mEq Na bic to 1/2 NS same rate; f/u on sob today; HTN improved -no indication for urgent dialysis but transfer to transplant center appropriate -stopped fenofibrate (2) Renal transplant recipient: Plan: as OP on MMF 750 mg bid and FK 2 mg bid; renal transplant 2017 [facility] for HTN -MMF held at admission -FK lowered empirically to 1 mg bid pending level> will lower further to 0.5 mg bid Have been discussing w/ hospitalist for a few days now > today [facility] nephro agreed and pt is for transfer for broader scope of renal transplant care--he may need renal biopsy / evaluation for rejection if no improvement with conservative care; needs eval for CMV/BK infections which are not a timely eval here; may need more advanced urology care /urodynamics to evaluate for 2 UTI's in less than a month in transplanted kidney in wake of recent stroke, more timely FK levels which here can be delayed (3) Complicated urinary tract infection: Plan: symptoms include dysuria, malaise, fatigue, pain over allograft; second episode in less than one month -on cefepime and vanco - await ID recs (4) Severe sepsis: Plan: inf dzs consult pending >> ordered 04/19 temp elevation to 37.9 noted once this admission but otherwise afebrile cont supportive care (5) Complex renal cyst: Plan: -needs f/u imaging in September 2020 -- L [place] kidney w/ complex cyst Admission and Anticipated Discharge Date Admission Date: April 19, 2021 Subjective states he feels a bit better today; less N ; no sob Review of Systems Review of Systems: All systems reviewed & are unremarkable except as noted in Subjective Physical Exam Constitutional: well developed, well nourished and cooperative; no acute distress and no altered mental status Eyes: EOM intact bilaterally ENMT: Ears: no external ear abnormality Nose: no external nose abnormality Mouth: + dry oral mucous membranes Neck: no nuchal rigidity Respiratory: normal respiratory effort Auscultation: + diminished lung sounds Cardiovascular: Rate/Rhythm: regular rhythm and + tachycardic Extremities: no edema Gastrointestinal (Abdomen): Inspection/Auscultation: normal bowel sounds Percussion/Palpation: abdomen soft; abdomen nontender RLQ allograft Musculoskeletal: Extremities: + abnormal strength (L hemiplegia) Skin: no rashes, warm and dry Psychiatric: Orientation: oriented x 3 and cooperative Speech: + abnormal rate/rhythm/volume of speech (slightly slowed) Insight: good insight Judgement: good judgement Results & Data ([facility]) Vital Signs (Past 12 Hours) Vital Signs Temp Pulse Pulse Resp BP Pulse Ox 04/22/21 08:05 36.4 C L 84 19 122/78 96 04/22/21 08:00 83 04/22/21 04:21 37.2 C 81 16 135/84 96 04/21/21 23:08 37.1 C 92 H 16 129/78 95 Laboratory Results 04/22/21 05:51 04/22/21 05:51
[2021-04-22] MEDS: SODIUM CHLORIDE 0.45 % 1,000 ML IV SCH (11:04)
[2021-04-22] MEDS: BACLOFEN 10 MG TAB PO PRN ×2 (11:14→20:24)
--- NOTE | 2021-04-22 19:48 | Hospitalist Progress Note ---
Date of Service April 22, 2021 Assessment & Plan (1) Sepsis: (2) Complicated urinary tract infection: Plan: per admitting service notes: This is a 39-year-old male from [facility] with PMH of recent ischemic CVA (R MCA) status post TPA/embolectomy at [facility] (02/2021), HTN, hx renal transplant ([facility], 2018) on immunosuppression (CellCept, Tacrolimus), CRI (baseline creatinine 2s), possible seizure disorder, prediabetes who presents from [facility] with lethargy and urinary tract infection. Recently admitted to our service with severe sepsis secondary to Klebsiella UTI resuscitated with IV fluids and cefepime. Transitioned to cefdinir on discharge to [facility], which he completed on 04/10 Sent to ED for abnormal labwork and UTI, started on Bactrim course this morning (completed one dose) Afebrile, HR 111, WBC 15.8, procal 5.75, lactate wnl UA abnormal, urine culture pending CT abd/pelvis without CT evidence for pyelonephritis of the [place] or transplanted kidney. There is thickening of the bladder wall which can be seen with cystitis Received dose of rocephin in ED. Will continue abx coverage with cefepime and vanco ID consult placed in setting of recurrent UTIs this month, h/o renal transplant Received 2 L NSS in ED. Waited on additional fluids until lab work and discussion with nephro due to ABEBA on CKD 04/22 Urine culture: Klebsiella Blood cultures: negative so far Cefepime 2 g IV day 3 (3) Acute renal failure superimposed on chronic kidney disease: (4) Renal transplant recipient: Plan: per admitting service notes: Cr elevated to 5.88 (baseline 2) in setting of dehydration, infection Discussed with Dr. Norton - hold mycophenolate, reduce tacrolimus dose to 1mg Q12H Tacro trough level ordered for AM Continue IV fluids, repeat BMP in AM 04/22 crea still 5 Bicarb drip given, now on NSS Dr. Norton recommending transfer to [facility] for possible renal biopsy Tacrolimus further decreased to 0.5mg BID Cellcept on hold (5) Sinus tachycardia: Plan: In setting of infection. Continue IV fluids, monitor on telemetry (6) History of stroke: (7) Subarachnoid hemorrhage: Plan: per admitting service notes: History of recent ischemic CVA (R MCA) status post TPA/embolectomy at [facility] (02/2021), followed by recent history of subarachnoid hemorrhage Started on seizure prophylaxis and Plavix is currently on hold per neurosurgery Following with [place] neurosurgery CT head today with no acute intracranial findings. Expected evolution of the subacute to chronic infarcts within the right external capsule and right parietal lobe since prior CT DVT Ppx: SCDs Code status: FULL PCP: SALTY Louie Dispo: Admitted to PCU Admission and Anticipated Discharge Date Admission Date: April 19, 2021 Subjective ff up for acute renal failure, UTI, etc seen resting in bed, comfortable states he feels slightly better than yesterday no chest pain, dyspnea, palpitations, dizziness no nausea, abdominal pain no other symptoms Review of Systems Review of Systems: all noted and negative except for above Physical Exam Physical Exam: General- oriented x 3, not in distress, speaks in sentences wi th no effort or accessory muscle use Eyes- anicteric Neck- no JVD Lungs- clear BS BL Heart- normal rate, regular rhythm; no murmurs Abdomen- normal bowel sounds, nondistended, soft, no tenderness Extremities- no pretibial edema, no calf tenderness Neuro- alert, oriented x 3; no gross focal neurologic deficits Skin- warm & dry Results & Data Results & Data ([facility]) Vital Signs (Past 12 Hours) Vital Signs Temp Pulse Pulse Resp BP BP Pulse Ox 04/22/21 16:00 76 04/22/21 15:59 36.8 C 75 19 148/91 H 97 04/22/21 12:08 36.5 C 69 18 138/87 96 04/22/21 08:05 36.4 C L 84 19 122/78 96 04/22/21 08:00 83 all noted and reviewed including below
[2021-04-22] MEDS: ATORVASTATIN 40 MG TAB PO SCH (20:24)
[2021-04-22] MEDS: TACROLIMUS 0.5 MG CAP PO SCH (20:25)
[2021-04-22] MEDS: CEFEPIME 2,000 MG in SYRINGE 0 ML IV SCH (23:55)
[2021-04-23] MEDS: SODIUM CHLORIDE 0.45 % 1,000 ML IV SCH ×2 (00:24→12:55)
[2021-04-23 06:41] LABS: Basophils # (auto) 0.02 K/uL (0-0.2); Basophils % (auto) 0.2 %; Eosinophils # (auto) 0.14 K/uL (0-0.5); Eosinophils % (auto) 1.7 %; Hematocrit (blood only) 31.6 % (42-52); Hemoglobin 10.4 g/dL (14.0-18.0); Immature Granulocytes # (auto) 0.06 K/uL (0.00-0.02); Immature Granulocytes % (auto) 0.7 %; Lymphocytes # (auto) 0.99 K/uL (1.2-3.4); Mean Corpuscular Hemoglobin 29.7 pg (25-34); Mean Corpuscular Hgb Conc 32.9 g/dL (32-36); Mean Corpuscular Volume 90.3 fL (80-100); Mean Platelet Volume 8.6 fL (7.4-10.4); Monocytes # (auto) 0.81 K/uL (0.11-0.59); Monocytes % (auto) 9.8 %; Neutrophils # (auto) 6.25 K/uL (1.4-6.5); Neutrophils % (auto) 75.6 %; Platelet Count 285 K/uL (130-400); RDW Coefficient of Variation 13.8 % (11.5-14.5); RDW Standard Deviation 45.7 fL (36.4-46.3); White Blood Count 8.27 K/uL (4.8-10.8)
[2021-04-23 07:11] LABS: Albumin Level 1.9 gm/dl (3.4-5.0); BUN Creatinine Ratio 10.6 (10-20); Calcium 9.6 mg/dl (8.5-10.1); Creatinine Clr Calc Pharmacy 22.2 ml/min; Est GFR (African American) 17.5 ml/min; Est GFR (Non-African American) 15.1 ml/min; Magnesium 1.8 mg/dl (1.8-2.4); Potassium 3.6 mmol/L (3.5-5.1)
[2021-04-23 07:13] LABS: Albumin Globulin Ratio 0.4 (0.9-2); Bilirubin,Total 0.7 mg/dl (0.2-1); Globulin 5.2 gm/dl (2.5-4.0); Phosphorus 3.5 mg/dl (2.5-4.9); Total Protein 7.1 gm/dl (6.4-8.2)
[2021-04-23] MEDS: TACROLIMUS 0.5 MG CAP PO SCH ×2 (08:22→21:13)
[2021-04-23] MEDS: BACLOFEN 10 MG TAB PO PRN (08:22)
[2021-04-23] MEDS: levETIRAcetam 250 MG TAB PO SCH ×2 (08:22→21:13)
[2021-04-23] MEDS: FOLIC ACID 1 MG TAB PO SCH (08:23)
[2021-04-23] MEDS: SENNA 8.6 MG TAB PO SCH (08:23)
[2021-04-23] MEDS: allopurinoL 100 MG TAB PO SCH (08:23)
[2021-04-23] MEDS: ASPIRIN 81 MG ECTAB PO SCH (08:23)
--- NOTE | 2021-04-23 13:59 | Nephrology Progress Note ---
Date of Service April 23, 2021 Assessment & Plan (1) Acute renal failure superimposed on chronic kidney disease: Plan: Stage 3 nonoliguric ABEBA on CKD 3 in a renal txplt pt with recurrent sepsis and recurrent complex UTI in setting of 02/2021 stroke s/p embolectomy/TPA. presumptive ATN from urosepsis, though prerenal process and CNI toxicity on differential; possible rejection, viral infection, atheroembolic event also on differential, though less likely. baseline creatinine 1.5-2; d/c'd near upper limit of baseline creatinine on 04/06; he had progressive worsening of creatinine almost immediately after arrival back to rehab : was 2.8 on 04/07, day after d/c; then slow uptrend to 3.7 on 04/16 and 5.9 on next check 04/20 which is peak value this admission. FK levels had been in 9-10 range as OP but cannot tell if these were troughs or not. chemistries have been mostly OK ; volume status low/acceptable. creat improved initially w/ hydration but worse again this am to admission levels -recheck trough level 04/21 tacro (pending, as is 04/19 tacro level) -daily bmp -IS as below -dose vanco by level - do not give next dose until after level posts -cont 1/2 NS same rate>> no sob, HTN improved -no indication for urgent dialysis but transfer to transplant center appropriate -stopped fenofibrate (2) Renal transplant recipient: Plan: as OP on MMF 750 mg bid and FK 2 mg bid; renal transplant 2017 [facility] [address] [facility] for HTN -MMF held at admission -FK lowered empirically to 1 mg bid pending level> then further lowered to 0.5 mg bid 04/22; shortly after last change, renal function improving -pt is for transfer for broader scope of renal transplant care--he may need renal biopsy / evaluation for rejection if no improvement with conservative care; needs eval for CMV/BK infections which are not a timely eval here; may need more advanced urology care /urodynamics to evaluate for 2 UTI's in less than a month in transplanted kidney in wake of recent stroke, more timely FK levels which here can be delayed (3) Complicated urinary tract infection: Plan: symptoms include dysuria, malaise, fatigue, pain over allograft; second episode in less than one month -on ceftriaxone (4) Severe sepsis: Plan: inf dzs consult pending >> ordered 04/19 afebrile cont supportive care (5) Complex renal cyst: Plan: -needs f/u imaging in September 2020 -- L [place] kidney w/ complex cyst Admission and Anticipated Discharge Date Admission Date: April 19, 2021 Subjective no interval clinical events. no sob, no edema, no n/v. still waitin [facility] bed; increased uop Review of Systems Review of Systems: All systems reviewed & are unremarkable except as noted in Subjective Physical Exam Constitutional: well developed, well nourished and cooperative; no acute distress and no altered mental status Eyes: EOM intact bilaterally ENMT: Ears: no external ear abnormality Nose: no external nose abnormality Mouth: + dry oral mucous membranes Neck: no nuchal rigidity Respiratory: normal respiratory effort Auscultation: + diminished lung sounds Cardiovascular: Rate/Rhythm: regular rate and regular rhythm Extremities: no edema Gastrointestinal (Abdomen): Inspection/Auscultation: normal bowel sounds Percussion/Palpation: abdomen soft; abdomen nontender Musculoskeletal: Extremities: + abnormal strength (L hemiplegia) Skin: no rashes, warm and dry Psychiatric: Orientation: oriented x 3 and cooperative Speech: + abnormal rate/rhythm/volume of speech (slightly slowed) Insight: good insight Judgement: good judgement Results & Data ([facility]) Vital Signs (Past 12 Hours) Vital Signs Temp Pulse Pulse Resp BP Pulse Ox 04/23/21 12:00 36.7 C 65 20 131/72 95 04/23/21 08:11 36.8 C 88 20 123/68 95 04/23/21 07:29 83 04/23/21 04:03 37.0 C 86 16 122/77 95 Laboratory Results 04/23/21 06:10 04/23/21 06:10
[2021-04-23] MEDS: cefTRIAXone SODIUM 2,000 MG in DEXTROSE 5% 50 ML IV SCH (15:00)
--- NOTE | 2021-04-23 17:33 | Hospitalist Progress Note ---
Date of Service April 23, 2021 Assessment & Plan (1) Sepsis: (2) Complicated urinary tract infection: Plan: per admitting service notes: This is a 39-year-old male from [facility] with PMH of recent ischemic CVA (R MCA) status post TPA/embolectomy at [facility] (02/2021), HTN, hx renal transplant ([facility], 2018) on immunosuppression (CellCept, Tacrolimus), CRI (baseline creatinine 2s), possible seizure disorder, prediabetes who presents from [facility] with lethargy and urinary tract infection. Recently admitted to our service with severe sepsis secondary to Klebsiella UTI resuscitated with IV fluids and cefepime. Transitioned to cefdinir on discharge to [facility], which he completed on 04/10 Sent to ED for abnormal labwork and UTI, started on Bactrim course this morning (completed one dose) Afebrile, HR 111, WBC 15.8, procal 5.75, lactate wnl UA abnormal, urine culture pending CT abd/pelvis without CT evidence for pyelonephritis of the [place] or transplanted kidney. There is thickening of the bladder wall which can be seen with cystitis Received dose of rocephin in ED. Will continue abx coverage with cefepime and vanco ID consult placed in setting of recurrent UTIs this month, h/o renal transplant Received 2 L NSS in ED. Waited on additional fluids until lab work and discussion with nephro due to ABEBA on CKD 04/23 Urine culture: Klebsiella Blood cultures: negative so far Cefepime 2 g IV day 3--> change to Ceftriaxone IV (3) Acute renal failure superimposed on chronic kidney disease: (4) Renal transplant recipient: Plan: per admitting service notes: Cr elevated to 5.88 (baseline 2) in setting of dehydration, infection Discussed with Dr. Norton - hold mycophenolate, reduce tacrolimus dose to 1mg Q12H Tacro trough level ordered for AM Continue IV fluids, repeat BMP in AM 04/23 crea 5 --> now 4.4 Bicarb drip given, now on NSS Dr. Norton recommending transfer to [facility] for possible renal biopsy Tacrolimus further decreased to 0.5mg BID Cellcept on hold (5) History of stroke: (6) Subarachnoid hemorrhage: Plan: per admitting service notes: History of recent ischemic CVA (R MCA) status post TPA/embolectomy at [facility] (02/2021), followed by recent history of subarachnoid hemorrhage Started on seizure prophylaxis and Plavix is currently on hold per neurosurgery Following with [place] neurosurgery CT head today with no acute intracranial findings. Expected evolution of the subacute to chronic infarcts within the right external capsule and right parietal lobe since prior CT DVT Ppx: SCDs Code status: FULL PCP: SALTY Louie Dispo: awaiting bed at [facility] Admission and Anticipated Discharge Date Admission Date: April 19, 2021 Subjective ff up for Sepsis, UTI, acute renal failure, etc seen resting in bed, sitting up comfortable states he continues to feel improved no chest pain, dyspnea, palpitations, dizziness no abdominal pain, nausea no chills no other symptoms Review of Systems Review of Systems: all noted and negative except for above Physical Exam Physical Exam: General- oriented x 3, not in distress, speaks in sentences with no effort or accessory muscle use Eyes- anicteric Neck- no JVD Lungs- clear breath sounds BL Heart- normal rate, regular rhythm; no murmurs Abdomen- normal bowel sounds, nondistended, soft, nontender Harris cath in place: yellow urine Extremities- no pretibial edema, no calf tenderness Neuro- alert, oriented x 3; no gross focal neurologic deficits Skin- warm & dry Results & Data Results & Data ([facility]) Vital Signs (Past 12 Hours) Vital Signs Temp Pulse Pulse Resp BP Pulse Ox 04/23/21 17:20 36.5 C 72 18 121/60 98 04/23/21 12:00 36.7 C 65 20 131/72 95 04/23/21 08:11 36.8 C 88 20 123/68 95 04/23/21 07:29 83 all noted and reviewed including below
[2021-04-23] MEDS: ATORVASTATIN 40 MG TAB PO SCH (21:13)
[2021-04-24] MEDS: SODIUM CHLORIDE 0.45 % 1,000 ML IV SCH ×3 (03:43→16:55)
[2021-04-24 06:42] LABS: Basophils # (auto) 0.03 K/uL (0-0.2); Basophils % (auto) 0.3 %; Eosinophils # (auto) 0.17 K/uL (0-0.5); Eosinophils % (auto) 1.9 %; Hematocrit (blood only) 32.7 % (42-52); Hemoglobin 10.8 g/dL (14.0-18.0); Immature Granulocytes # (auto) 0.07 K/uL (0.00-0.02); Immature Granulocytes % (auto) 0.8 %; Lymphocytes # (auto) 1.06 K/uL (1.2-3.4); Mean Corpuscular Hemoglobin 29.8 pg (25-34); Mean Corpuscular Volume 90.3 fL (80-100); Mean Platelet Volume 8.4 fL (7.4-10.4); Monocytes # (auto) 0.79 K/uL (0.11-0.59); Monocytes % (auto) 8.9 %; Neutrophils # (auto) 6.72 K/uL (1.4-6.5); Neutrophils % (auto) 76.1 %; Platelet Count 281 K/uL (130-400); RDW Coefficient of Variation 13.7 % (11.5-14.5); Red Blood Count 3.62 M/uL (4.7-6.1); White Blood Count 8.84 K/uL (4.8-10.8)
[2021-04-24 07:14] LABS: BUN Creatinine Ratio 11.7 (10-20); Calcium 9.5 mg/dl (8.5-10.1); Creatinine Clr Calc Pharmacy 24.4 ml/min; Est GFR (African American) 19.6 ml/min; Est GFR (Non-African American) 16.9 ml/min; Magnesium 1.7 mg/dl (1.8-2.4); Potassium 3.3 mmol/L (3.5-5.1)
[2021-04-24 07:16] LABS: Albumin Globulin Ratio 0.4 (0.9-2); Bilirubin,Total 0.7 mg/dl (0.2-1); Globulin 5.1 gm/dl (2.5-4.0); Phosphorus 3.3 mg/dl (2.5-4.9); Total Protein 7.1 gm/dl (6.4-8.2)
[2021-04-24] MEDS: TACROLIMUS 0.5 MG CAP PO SCH ×2 (08:37→20:50)
[2021-04-24] MEDS: levETIRAcetam 250 MG TAB PO SCH ×2 (08:37→20:50)
[2021-04-24] MEDS: ASPIRIN 81 MG ECTAB PO SCH (08:37)
[2021-04-24] MEDS: FOLIC ACID 1 MG TAB PO SCH (08:38)
[2021-04-24] MEDS: allopurinoL 100 MG TAB PO SCH (08:38)
[2021-04-24] MEDS: SENNA 8.6 MG TAB PO SCH (08:38)
--- NOTE | 2021-04-24 12:29 | Nephrology Progress Note ---
Date of Service April 24, 2021 Assessment & Plan (1) Acute renal failure superimposed on chronic kidney disease: Plan: Stage 3 nonoliguric ABEBA on CKD 3 in a renal txplt pt with recurrent sepsis and recurrent complex UTI in setting of 02/2021 stroke s/p embolectomy/TPA. presumptive ATN from urosepsis, though prerenal process and CNI toxicity on differential; possible rejection, viral infection, atheroembolic event also on differential, though less likely. baseline creatinine 1.5-2; d/c'd near upper limit of baseline creatinine on 04/06; he had progressive worsening of creatinine almost immediately after arrival back to rehab : was 2.8 on 04/07, day after d/c; then slow uptrend to 3.7 on 04/16 and 5.9 on next check 04/20 which is peak value this admission. FK levels had been in 9-10 range as OP but cannot tell if these were troughs or not. chemistries have been mostly OK ; volume status low/acceptable. creat improved initially w/ hydration but worse again this am to admission levels -recheck trough level 04/21 tacro (pending, as is 04/19 tacro level) -daily bmp -IS as below -cont 1/2 NS same rate>> no sob, HTN improved -gave 40 po K x 1 today -no indication for urgent dialysis but transfer to transplant center appropriate -stopped fenofibrate (2) Renal transplant recipient: Plan: as OP on MMF 750 mg bid and FK 2 mg bid; renal transplant 2017 [facility] for HTN -MMF held at admission -FK lowered empirically to 1 mg bid pending level> then further lowered to 0.5 mg bid 04/22; shortly after last change, renal function improving -pt is for transfer for broader scope of renal transplant care--he may need renal biopsy / evaluation for rejection if no improvement with conservative care; needs eval for CMV/BK infections which are not a timely eval here; may need more advanced urology care /urodynamics to evaluate for 2 UTI's in less than a month in transplanted kidney in wake of recent stroke, more timely FK levels which here can be delayed (3) Complicated urinary tract infection: Plan: symptoms include dysuria, malaise, fatigue, pain over allograft; second episode in less than one month -on ceftriaxone (4) Severe sepsis: Plan: inf dzs consult pending >> ordered 04/19 afebrile cont supportive care (5) Complex renal cyst: Plan: -needs f/u imaging in September 2020 -- L [place] kidney w/ complex cyst Admission and Anticipated Discharge Date Admission Date: April 19, 2021 Subjective no interval events clnically except that urine cx + Klebsiella. no voiding c/, hardly eats but tolerates protein shakes; no bed in [facility] yet; nosob, no change in edeam Review of Systems Review of Systems: All systems reviewed & are unremarkable except as noted in Subjective Physical Exam Constitutional: well developed, well nourished and cooperative; no acute distress and no altered mental status up in chair Eyes: EOM intact bilaterally ENMT: Ears: no external ear abnormality Nose: no external nose abnormality Mouth: + dry oral mucous membranes Neck: no nuchal rigidity Respiratory: normal respiratory effort Auscultation: + diminished lung sounds Cardiovascular: Rate/Rhythm: regular rate and regular rhythm Extremities: no edema Gastrointestinal (Abdomen): Inspection/Auscultation: normal bowel sounds Percussion/Palpation: abdomen soft; abdomen nontender Musculoskeletal: Extremities: + abnormal strength (L hemiplegia) Skin: no rashes, warm and dry Psychiatric: Orientation: oriented x 3 and cooperative Speech: + abnormal rate/rhythm/volume of speech (slightly slowed) Insight: good insight Judgement: good judgement Results & Data ([facility]) Vital Signs (Past 12 Hours) Vital Signs Temp Pulse Pulse Resp BP Pulse Ox 04/24/21 11:56 36.5 C 87 18 124/80 98 04/24/21 08:25 36.5 C 85 18 131/83 96 04/24/21 07:33 75 04/24/21 04:14 36.7 C 79 16 112/71 95 Laboratory Results 04/24/21 06:08 04/24/21 06:08
[2021-04-24] MEDS ORDERED: POTASSIUM CHLORIDE CRTAB 20 MEQ TABCR PO ONE (12:30)
[2021-04-24] MEDS: cefTRIAXone SODIUM 2,000 MG in DEXTROSE 5% 50 ML IV SCH (13:32)
[2021-04-24] MEDS ORDERED: CONSULT PHARMACY STA (15:56)
[2021-04-24] MEDS ORDERED: CEFEPIME 2,000 MG in SYRINGE 0 ML IV SCH (16:00)
--- NOTE | 2021-04-24 16:00 | Hospitalist Progress Note ---
Date of Service April 24, 2021 Assessment & Plan (1) Sepsis: (2) Complicated urinary tract infection: Plan: per admitting service notes: This is a 39-year-old male from [facility] with PMH of recent ischemic CVA (R MCA) status post TPA/embolectomy at [facility] (02/2021), HTN, hx renal transplant ([facility], 2018) on immunosuppression (CellCept, Tacrolimus), CRI (baseline creatinine 2s), possible seizure disorder, prediabetes who presents from [facility] with lethargy and urinary tract infection. Recently admitted to our service with severe sepsis secondary to Klebsiella UTI resuscitated with IV fluids and cefepime. Transitioned to cefdinir on discharge to [facility], which he completed on 04/10 Sent to ED for abnormal labwork and UTI, started on Bactrim course this morning (completed one dose) Afebrile, HR 111, WBC 15.8, procal 5.75, lactate wnl UA abnormal, urine culture pending CT abd/pelvis without CT evidence for pyelonephritis of the [place] or transplanted kidney. There is thickening of the bladder wall which can be seen with cystitis Received dose of rocephin in ED. Will continue abx coverage with cefepime and vanco ID consult placed in setting of recurrent UTIs this month, h/o renal transplant Received 2 L NSS in ED. Waited on additional fluids until lab work and discussion with nephro due to ABEBA on CKD 04/24 Urine culture: Klebsiella Blood cultures: negative so far Cefepime 2 g IV day 3--> changed to Ceftriaxone IV Blood culture growing gram-negative bacilli 1 out of 2 bottles Transition again to cefepime for broader antibiotic coverage today Awaiting ID consult Followed up with community development officer Repeat blood cultures ordered for today (3) Acute renal failure superimposed on chronic kidney disease: (4) Renal transplant recipient: Plan: per admitting service notes: Cr elevated to 5.88 (baseline 2) in setting of dehydration, infection Discussed with Dr. Norton - hold mycophenolate, reduce tacrolimus dose to 1mg Q12H Tacro trough level ordered for AM Continue IV fluids, repeat BMP in AM 04/24 crea 5 --> now 4.0 Bicarb drip given, now on half NSS Dr. Norton recommending transfer to [facility] for possible renal biopsy Tacrolimus further decreased to 0.5mg BID Cellcept on hold (5) History of stroke: (6) Subarachnoid hemorrhage: Plan: per admitting service notes: History of recent ischemic CVA (R MCA) status post TPA/embolectomy at [facility] (02/2021), followed by recent history of subarachnoid hemorrhage Started on seizure prophylaxis and Plavix is currently on hold per neurosurgery Following with [place] neurosurgery CT head today with no acute intracranial findings. Expected evolution of the subacute to chronic infarcts within the right external capsule and right parietal lobe since prior CT DVT Ppx: SCDs Code status: FULL PCP: SALTY Louie Dispo: awaiting bed at [facility] Admission and Anticipated Discharge Date Admission Date: April 19, 2021 Subjective Follow-up for Klebsiella UTI, acute renal failure, etc. Seen sitting up in bedside chair, comfortable, watching TV States he feels better today, but still somewhat weak No nausea vomiting, shortness of breath, chest pain, pruritus, dizziness No other symptom Review of Systems Review of Systems: all noted and negative except for above Physical Exam Physical Exam: General- oriented x 3, not in distress, speaks in sentences with no effort or accessory muscle use Eyes- anicteric Neck- no JVD Lungs- clear BS bilaterally, no crackles or wheezing Heart- normal rate, regular rhythm; no murmurs Abdomen- normal bowel sounds, nondistended, soft, nontender Extremities- no pretibial edema, no calf tenderness Neuro- alert, oriented x 3; no new gross focal neurologic deficits Skin- warm & dry Results & Data Results & Data ([facility]) Vital Signs (Past 12 Hours) Vital Signs Temp Pulse Pulse Resp BP Pulse Ox 04/24/21 15:53 37.3 C 92 H 19 131/84 96 04/24/21 11:56 36.5 C 87 18 124/80 98 04/24/21 08:25 36.5 C 85 18 131/83 96 04/24/21 07:33 75 04/24/21 04:14 36.7 C 79 16 112/71 95 all noted and reviewed including below
[2021-04-24] MEDS: ACETAMINOPHEN 325 MG TAB PO PRN (18:45)
[2021-04-24] MEDS: BACLOFEN 10 MG TAB PO PRN (18:45)
[2021-04-24] MEDS: ATORVASTATIN 40 MG TAB PO SCH (20:50)
[2021-04-25] MEDS: BACLOFEN 10 MG TAB PO PRN (03:56)
[2021-04-25] MEDS: ACETAMINOPHEN 325 MG TAB PO PRN (03:56)
[2021-04-25 07:43] LABS: Basophils # (auto) 0.02 K/uL (0-0.2); Basophils % (auto) 0.2 %; Eosinophils # (auto) 0.13 K/uL (0-0.5); Eosinophils % (auto) 1.6 %; Hematocrit (blood only) 30.9 % (42-52); Hemoglobin 10.1 g/dL (14.0-18.0); Immature Granulocytes # (auto) 0.06 K/uL (0.00-0.02); Immature Granulocytes % (auto) 0.7 %; Lymphocytes # (auto) 0.84 K/uL (1.2-3.4); Lymphocytes % (auto) 10.3 %; Mean Corpuscular Hemoglobin 29.6 pg (25-34); Mean Corpuscular Hgb Conc 32.7 g/dL (32-36); Mean Corpuscular Volume 90.6 fL (80-100); Mean Platelet Volume 8.4 fL (7.4-10.4); Monocytes % (auto) 7.4 %; Neutrophils # (auto) 6.48 K/uL (1.4-6.5); Neutrophils % (auto) 79.8 %; Platelet Count 277 K/uL (130-400); RDW Coefficient of Variation 14.1 % (11.5-14.5); RDW Standard Deviation 47.2 fL (36.4-46.3); Red Blood Count 3.41 M/uL (4.7-6.1); White Blood Count 8.13 K/uL (4.8-10.8)
[2021-04-25] MEDS: levETIRAcetam 250 MG TAB PO SCH (09:11)
[2021-04-25] MEDS: FOLIC ACID 1 MG TAB PO SCH (09:11)
[2021-04-25] MEDS: TACROLIMUS 0.5 MG CAP PO SCH (09:11)
[2021-04-25] MEDS: SENNA 8.6 MG TAB PO SCH (09:11)
[2021-04-25] MEDS: allopurinoL 100 MG TAB PO SCH (09:12)
[2021-04-25] MEDS: ASPIRIN 81 MG ECTAB PO SCH (09:12)
[2021-04-25 09:17] LABS: BUN Creatinine Ratio 10.8 (10-20); Calcium 9.5 mg/dl (8.5-10.1); Creatinine Clr Calc Pharmacy 24.3 ml/min; Est GFR (African American) 19.5 ml/min; Est GFR (Non-African American) 16.8 ml/min; Potassium 3.6 mmol/L (3.5-5.1)
--- NOTE | 2021-04-25 12:32 | Nephrology Progress Note ---
Date of Service April 25, 2021 Assessment & Plan Admission and Anticipated Discharge Date Admission Date: April 19, 2021 Subjective Assessment & Plan (1) Acute renal failure superimposed on chronic kidney disease: Plan: Stage 3 nonoliguric ABEBA on CKD 3 in a renal txplt pt with recurrent sepsis and recurrent complex UTI in setting of 02/2021 stroke s/p embolectomy/TPA. presumptive ATN from urosepsis, though prerenal process and CNI toxicity on differential; possible rejection, viral infection, atheroembolic event also on differential, though less likely. baseline creatinine 1.5-2; d/c'd near upper limit of baseline creatinine on 04/06; he had progressive worsening of creatinine almost immediately after arrival back to rehab : was 2.8 on 04/07, day after d/c; then slow uptrend to 3.7 on 04/16 and 5.9 on next check 04/20 which is peak value this admission. FK levels had been in 9-10 range as OP but cannot tell if these were troughs or not. chemistries have been mostly OK ; volume status low/acceptable. creat improved initially w/ hydration but worse again this am to admission levels -recheck trough level 04/21 tacro (pending, as is 04/19 tacro level) -daily bmp--reat trending Down. -IS as below -cont 1/2 NS same rate>> no sob, HTN improved -no indication for urgent dialysis but transfer to transplant center appropriate -stopped fenofibrate (2) Renal transplant recipient: Plan: as OP on MMF 750 mg bid and FK 2 mg bid; renal transplant 2017 [facility] for HTN -MMF held at admission -FK lowered empirically to 0.5 mg bid. shortly after last change, renal function improving -pt is for transfer for broader scope of renal transplant care--he may need renal biopsy / evaluation for rejection if no improvement with conservative care; needs eval for CMV/BK infections which are not a timely eval here; may need more advanced urology care /urodynamics to evaluate for 2 UTI's in less than a month in transplanted kidney in wake of recent stroke, more timely FK levels which here can be delayed (3) Complicated urinary tract infection: Plan: symptoms include dysuria, malaise, fatigue, pain over allograft; second episode in less than one month -on ceftriaxone (4) Severe sepsis: Plan: inf dzs consult pending >> ordered 04/19 afebrile cont supportive care (5) Complex renal cyst: Plan: -needs f/u imaging in September 2020 -- [facility] [place] kidney w/ complex cyst Admission and Anticipated Discharge Date Admission Date: April 19, 2021 Subjective no interval events clnically except that urine cx + Klebsiella. no voiding c/, hardly eats but tolerates protein shakes; no bed in [facility] yet; nosob, no change in edeam Review of Systems Review of Systems: All systems reviewed & are unremarkable except as noted in Subjective Physical Exam Constitutional: well developed, well nourished and cooperative; no acute distress and no altered mental status up in chair Eyes: EOM intact bilaterally ENMT: Ears: no external ear abnormality Nose: no external nose abnormality Mouth: + dry oral mucous membranes Neck: no nuchal rigidity Respiratory: normal respiratory effort Auscultation: + diminished lung sounds Cardiovascular: Rate/Rhythm: regular rate and regular rhythm Extremities: no edema Gastrointestinal (Abdomen): Inspection/Auscultation: normal bowel sounds Percussion/Palpation: abdomen soft; abdomen nontender Musculoskeletal: Extremities: + abnormal strength (L hemiplegia) Skin: no rashes, warm and dry Psychiatric: Orientation: oriented x 3 and cooperative Speech: + abnormal rate/rhythm/volume of speech (slightly slowed) Insight: good insight Judgem ent: good judgement Results & Data ([place]) Vital Signs (Past 12 Hours) Vital Signs Temp Pulse Pulse Resp BP Pulse Ox 04/25/21 11:10 36.9 C 75 17 124/83 97 04/25/21 08:00 82 04/25/21 07:34 36.5 C 78 17 115/73 94 04/25/21 03:41 36.7 C 79 16 121/81 94
--- NOTE | 2021-04-25 12:55 | Hospitalist Progress Note ---
Date of Service April 25, 2021 delayed entry date of service noted above Assessment & Plan (1) Sepsis: (2) Complicated urinary tract infection: Plan: per admitting service notes: This is a 39-year-old male from [facility] with PMH of recent ischemic CVA (R MCA) status post TPA/embolectomy at [facility] (02/2021), HTN, hx renal transplant ([facility], 2018) on immunosuppression (CellCept, Tacrolimus), CRI (baseline creatinine 2s), possible seizure disorder, prediabetes who [facility] with [facility]argy and urinary tract infection. Recently admitted to our service with severe sepsis secondary to Klebsiella UTI resuscitated with IV fluids and cefepime. Transitioned to cefdinir on discharge to [facility], which he completed on 04/10 Sent to ED for abnormal labwork and UTI, started on Bactrim course this morning (completed one dose) Afebrile, HR 111, WBC 15.8, procal 5.75, lactate wnl UA abnormal, urine culture pending CT abd/pelvis without CT evidence for pyelonephritis of the [place] or transplanted kidney. There is thickening of the bladder wall which can be seen with cystitis Received dose of rocephin in ED. Will continue abx coverage with cefepime and vanco ID consult placed in setting of recurrent UTIs this month, h/o renal transplant Received 2 L NSS in ED. Waited on additional fluids until lab work and discussion with nephro due to ABEBA on CKD Urine culture: Klebsiella Blood cultures:Klebsiella 1 bottle Cefepime 2 g IV (3) Acute renal failure superimposed on chronic kidney disease: (4) Renal transplant recipient: Plan: per admitting service notes: Cr elevated to 5.88 (baseline 2) in setting of dehydration, infection Discussed with Dr. Norton - hold mycophenolate, reduce tacrolimus dose to 1mg Q12H Tacro trough level ordered for AM Continue IV fluids, repeat BMP in AM 04/25 crea 4.09 tacrolimus lowered dose (5) Sinus tachycardia: Plan: resolved (6) History of stroke: (7) Subarachnoid hemorrhage: Plan: per admitting service notes: History of recent ischemic CVA (R MCA) status post TPA/embolectomy at [facility] (02/2021), followed by recent history of subarachnoid hemorrhage Started on seizure prophylaxis and Plavix is currently on hold per neurosurgery Following with [place] neurosurgery CT head today with no acute intracranial findings. Expected evolution of the subacute to chronic infarcts within the right external capsule and right parietal lobe since prior CT DVT Ppx: SCDs Code status: FULL PCP: SALTY Louie Dispo: transfer to [facility] Admission and Anticipated Discharge Date Admission Date: April 19, 2021 Subjective ff up for acute renal failure, etc seen resting in bed, comfortable states he feels fine overall no chest pain, dyspnea, palpitations, dizziness no abdominal pain,nausea/vomiting no other symptoms Physical Exam Physical Exam: General- oriented x 3, not in distress, speaks in sentences with no effort or accessory muscle use Eyes- anicteric Neck- no JVD Lungs- clear breath sounds BL Heart- normal rate, regular rhythm; no murmurs Abdomen- normal bowel sounds, nondistended, soft,no tenderness martell cath- yellow urine Extremities- no pretibial edema, no calf tenderness Neuro- alert, oriented x 3; no gross focal neurologic deficits Skin- warm & dry Results & Data Results & Data ([facility]) Vital Signs (Past 12 Hours) Vital Signs Temp Pulse Pulse Resp BP Pulse Ox 04/25/21 11:10 36.9 C 75 17 124/83 97 04/25/21 08:00 82 04/25/21 07:34 36.5 C 78 17 115/73 94 04/25/21 03:41 36.7 C 79 16 121/81 94 all noted and reviewed including below
--- NOTE | 2021-04-25 12:57 | Discharge Summary ---
Date of Service April 25, 2021 Admission HPI Per Admitting Provider This is a 39-year-old male from [facility] with PMH of recent ischemic CVA (R MCA) status post TPA/embolectomy at [facility] (02/2021), HTN, hx renal transplant ([facility], 2018) on immunosuppression (CellCept, Tacrolimus), CRI (baseline creatinine 2s), possible seizure disorder, prediabetes who presents from [facility] with lethargy and urinary tract infection. Patient was recently admitted to our service with severe sepsis secondary to Klebsiella UTI resuscitated with IV fluids and cefepime. Transitioned to cefdinir on discharge to [facility], which he completed on 04/10. Also with recent history of subarachnoid hemorrhage-patient started on seizure prophylaxis and Plavix is currently on hold per neurosurgery. Per discussion with [facility] staff, patient noticeably more lethargic over the past 2 days. Repeat UA was done and patient started on Bactrim this morning. Due to abnormal lab work including and increased creatinine, patient was sent to ED for further evaluation. Patient with history of right renal transplant in 2018 on CellCept, tacrolimus. In ED, patient lethargic but arousable to verbal stimuli. Alert and oriented x3. Some diffuse abdominal discomfort. Harris catheter placed with urinary output. Denies any recent decrease in urinary output at rehab. No fever, chills, headache, chest pain, shortness of breath, nausea, vomiting, dysuria, diarrhea or constipation. Admission Exam (Per Admitting) Constitutional General Appearance:WD/WN, vitals as above, NAD, lethargic but arousable to verbal stimuli Head: normocephalic, atraumatic Eyes:normal inspection, PERRL, conjunctivae normal, anicteric sclerae ENT: external ear and nose normal, oropharynx normal Neck: normal visual inspection, trachea midline, no thyromegaly Respiratory: normal respiratory effort, lungs clear to auscultation, no wheeze, rales, rhonchi. No accessory muscle use Cardiovascular: tachycardic rate, regular rhythm, no murmur, normal peripheral pulses, no BLE edema. Vessels: no JVD Chest: normal inspection of chest Abdomen/GI: normal bowel sounds, soft, mild lower abdominal TTP, no guarding, no hepatosplenomegaly Extremities/Musculoskeletal: no cyanosis or clubbing, extremities motor strength 5/5 Neurologic: PERRL, EOMI, accommodation nl, L facial droop (chronic), CN's II-XI intact bilaterally and moves all extremities Psychiatric:A+Ox3, euthymic affect Skin: no rashes, normal color, warm/dry Discharge Data Consultations 04/19/21 13:43 ED Decision to Admit Stat 04/19/21 19:13 Consult Nephrology Routine 04/19/21 20:22 Consult Infectious Diseases Routine 04/25/21 12:16 Burn CD for patient Stat Hospital Course (1) Sepsis: (2) Complicated urinary tract infection: RECURRENT URINARY TRACT INFECTION, KLEBSIELLA GRAM-NEGATIVE BACILLI BACTEREMIA per admitting service notes: This is a 39-year-old male from [facility] with PMH of recent ischemic CVA (R MCA) status post TPA/embolectomy at [facility] (02/2021), HTN, hx renal transplant ([facility], 2018) on immunosuppression (CellCept, Tacrolimus), CRI (baseline creatinine 2s), possible seizure disorder, prediabetes who presents from [facility] with lethargy and urinary tract infection. Recently admitted to our service with severe sepsis secondary to Klebsiella UTI resuscitated with IV fluids and cefepime. Transitioned to cefdinir on discharge to [facility], which he completed on 04/10 Sent to ED for abnormal labwork and UTI, started on Bactrim course this morning (completed one dose) Afebrile, HR 111, WBC 15.8, procal 5.75, lactate wnl UA abnormal, urine culture pending CT abd/pelvis without CT evidence for pyelonephritis of the [place] or transplanted kidney. There is thickening of the bladder wall which can be seen with cystitis Received dose of rocephin in ED. Will continue abx coverage with cefepime and vanco ID consult placed in setting of recurrent UTIs this month, h/o renal transplant Received 2 L NSS in ED. Waited on additional fluids until lab work and discussion with nephro due to ABEBA on CKD 04/25 Urine culture: Klebsiella Blood cultures: negative so far Cefepime 2 g IV day 3--> changed to Ceftriaxone IV Blood culture growing gram-negative bacilli 1 out of 2 bottles Transitioned again to cefepime for broader antibiotic coverage -day #2 With blood cultures ordered 04/24/2021 Awaiting ID consult (3) Acute renal failure superimposed on chronic kidney disease: (4) Renal transplant recipient: per admitting service notes: Cr elevated to 5.88 (baseline 2) in setting of dehydration, infection Discussed with Dr. Norton - hold mycophenolate, reduce tacrolimus dose to 1mg Q12H Tacro trough level ordered for AM Continue IV fluids, repeat BMP in AM 04/25 crea 5 --> now 4.00 --> 4.0 Bicarb drip given, now on half NSS Dr. Norton recommending transfer to [facility] for possible renal biopsy Tacrolimus decreased to 0.5mg BID Cellcept on hold (5) History of stroke: (6) Subarachnoid hemorrhage: per admitting service notes: History of recent ischemic CVA (R MCA) status post TPA/embolectomy at [facility] (02/2021), followed by recent history of subarachnoid hemorrhage Started on seizure prophylaxis and Plavix is currently on hold per neurosurgery Following with [place] neurosurgery CT head today with no acute intracranial findings. Expected evolution of the subacute to chronic infarcts within the right external capsule and right parietal lobe since prior CT DVT Ppx: SCDs Code status: FULL PCP: SALTY Louie Dispo: awaiting bed at [facility]
== END 2021-04-25 16:02 | disposition short-term general hospital (02) | DRG 871 ==
LOC: ED 12:01 → 2S 20:56 → SUATTDRO 20:56 → 2S 21:25